=== PATIENT | male | born 1950 | race Caucasian/White ===

== ENCOUNTER 2016-10-23 11:26 | Emergency (ER) | payer SELFPAY ==
[~2016-10-23] VITALS: Ht 182.9 cm; Wt 75.0 kg
[~2016-10-23 11:26] MED LIST: ASPCH81 PO; CYAN10004 PO; LORA-741 PO; MAGN400T6 PO; METO25TA3 PO; MULT-506 PO; PRAV20TA PO
[2016-10-23 11:30] VITALS: TEMP 36.7; O2SAT 96; Ht 182.9 cm; Wt 75.0 kg
[2016-10-23 12:11] LABS: HEMATOCRIT 38.9 % (42-52); MEAN CELL VOLUME 93.5 fL (80-100); MEAN CORPUSCULAR HEMOGLOBIN 33.2 pg (25-34); MEAN CORPUSCULAR HGB CONC 35.5 g/dl (32-36); MEAN PLATELET VOLUME 10.8 fL (7.4-10.4); PLATELET COUNT 193 K/uL (130-400); RED BLOOD COUNT 4.16 M/uL (4.7-6.1); WHITE BLOOD COUNT 5.18 K/uL (4.8-10.8)
--- NOTE | 2016-10-23 12:11 | DIAGNOSTIC IMAGING REPORT ---
CHEST ONE VIEW PORTABLE CLINICAL HISTORY: 65 years-old Male presenting with anxiety. TECHNIQUE: Portable upright AP view of the chest was obtained. COMPARISON: 11/28/2009. FINDINGS: Left-sided pacer with leads to the right atrium and right ventricular apex. Cardiomediastinal silhouette normal. Possible hyperinflation. Lungs and pleural spaces clear. Degenerative changes of the lumbar spine noted. Upper abdomen normal. IMPRESSION: 1. No acute cardiopulmonary disease. Electronically signed by: Rashard Lynn M.D. 10/23/2016 12:10 PM Dictated Date/Time: 10/23/2016 12:08 PM
[2016-10-23 12:31] LABS: BUN/CREATININE RATIO 15.1 (10-20); CALCIUM 8.8 mg/dl (8.5-10.1); CREATININE 0.97 mg/dl (0.60-1.40); POTASSIUM 3.8 mmol/L (3.5-5.1)
[2016-10-23 12:36] LABS: ALB/GLOB RATIO 1.2 (0.9-2); CKMB/CK RATIO 1.4 (0-3.0)
[2016-10-23] MEDS ORDERED: LPT/40 PO (12:37)
[2016-10-23] MEDS ORDERED: ASPI-461 PO (12:37)
[2016-10-23] MEDS ORDERED: TPRSR25 PO (12:37)
[2016-10-23] MEDS ORDERED: ATEN-173 PO ×2 (12:37)
[2016-10-23 13:10] LABS: PARTIAL THROMBOPLASTIN RATIO 1.1; PROTHROMBIN TIME (PATIENT) 10.7 SECONDS (9.0-12.0)
--- NOTE | 2016-10-23 13:53 | DIAGNOSTIC IMAGING REPORT ---
HEAD WITHOUT CONTRAST (CT) CLINICAL HISTORY: 65 years-old Male with acute stroke like symptoms TECHNIQUE: Multiple axial CT images of the head were obtained without contrast. A dose lowering technique was utilized adhering to the principles of ALARA. CT DOSE: 638.56 mGycm COMPARISON: CT head 11/28/2009. FINDINGS: No acute intracranial hemorrhage, midline shift, mass, large territorial ischemia or abnormal extra-axial collection. There is unchanged focal area of low-attenuation involving the left caudate nucleus and frye radiata compatible with remote infarction. The calvarium is intact. The paranasal sinuses, mastoid air cells, and middle ear cavities are clear. IMPRESSION: 1. No acute intracranial abnormality. 2. 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 The above report was generated using voice recognition software. It may contain grammatical, syntax or spelling errors. Electronically signed by: Raman Mosley M.D. 10/23/2016 1:51 PM Dictated Date/Time: 10/23/2016 1:49 PM
--- NOTE | 2016-10-23 13:57 | EMERGENCY ROOM VISIT NOTE ---
History Report prepared by Alireza: Pati Schaffer Under the Supervision of: Dr. Willie Cedeño M.D. First contact with patient: 13:25 Chief Complaint: CARDIAC ASSESSMENT Stated Complaint: ANXIETY Nursing Triage Summary: pt presents to room a09 via als. pt reports "while i was driving coming home from work i started to have numbness in my hands and i was short of breath, i thought i was having a heart attack." pt has pacemaker. pt repors "i feel light headed." pt reports "i am going to diagnose myself i think i had a mini stroke, i think i have had them before but was never diagnosed, i can't think of how long i have had my pacemaker or who my family dr is." History of Present Illness The patient is a 65 year old male who presents to the Emergency Room with complaints of an episode of tingling in his hands and feet earlier today. The patient presents to the ED by EMS. He had just arrived home when he started feeling tingling in his hands and feet. He did not have any tingling around his mouth. He was SOB and breathing very quickly. He thought that he might be having a heart attack and called EMS. He currently feels well and no longer has any numbness or SOB. He reports that at the time he seemed to have some memory problems and had difficulty answering questions. He does not identify anything that upset him today. He denies any abdominal pain, leg pain, weakness, vision changes, or hearing changes. The patient has a pacemaker in place. He denies any history of anxiety, LA, CVA, or TIA. Source of History: patient Onset: earlier today Position: hand (bilateral), foot (bilateral) Quality: other (tingling) Timing: other (episodic) Associated Symptoms: + SOB, No abdominal pain, No weakness Note: Pt reports confusion. Pt denies leg pain, vision changes, hearing changes. Review of Systems All systems have been listed, reviewed, and are negative other than those previously mentioned. Please see Additional Medical History Sheet. Past Medical & Surgical Surgical Problems: (1) S/P placement of cardiac pacemaker Family History Cancer Lung disease Social History Smoking Status: Current Every Day Smoker Alcohol Use: occasionally Marital Status: Housing Status: lives with family Occupation Status: employed Current/Historical Medications Scheduled Aspirin (Aspirin), 81 MG PO DAILY Atenolol (Tenormin), 25 MG PO QAM Atenolol (Tenormin), 12.5 MG PO QPM Atorvastatin (Lipitor), 40 MG PO DAILY Cyanocobalamin (Vitamin B-12 1000 Mcg), 1,000 MCG PO DAILY Lorazepam (Ativan), 0.5 MG PO 1-3X PER WEEK PRN Magnesium Oxide (Mag-Ox), 400 MG PO DAILY Metoprolol Succinate (Metoprolol Succinate ER), 37.5 MG PO DAILY Multivitamin (Multivitamin), 1 TAB PO DAILY Allergies Coded Allergies: Sulfa Drugs (Verified Allergy, Intermediate, HIVES, 10/23/16) Physical Exam Vital Signs Date Time Temp Pulse Resp B/P (MAP) Pulse Ox O2 Delivery O2 Flow Rate FiO2 10/23/16 15:14 71 20 134/81 98 Room Air 71 131/78 89 114/78 10/23/16 15:13 78 98 Room Air 10/23/16 14:34 67 18 121/80 96 Room Air 10/23/16 13:53 66 18 142/74 99 Room Air 10/23/16 12:53 76 20 116/77 97 Room Air 10/23/16 12:16 74 18 128/82 95 Room Air 10/23/16 12:01 72 20 119/81 95 Room Air 10/23/16 11:30 36.7 91 18 148/87 99 Room Air 10/23/16 11:30 96 Room Air 10/23/16 11:30 98 Room Air 10/23/16 11:30 90 Physical Exam GENERAL: Patient awake, alert, oriented x 3. Patient follows commands. Patient does not appear toxic. Patient is adequately hydrated and well- nourished. SKIN: No erythema, pallor, cyanosis or rash HEENT: Normal head, pupils equal, reactive to light and accommodation. Ears normal. Oral cavity and posterior pharynx appear normal. Neck: Without adenopathy, no neck vein distention. CHEST: Pacemaker in the left upper chest. LUNGS: Clear to auscultation. No wheezes, no rales, no rhonchi. HEART: No murmurs. No gallops. No rubs ABDOMEN: Soft, nontender. EXTREMITIES: No signs of trauma. No pedal or pretibial edema. No calf or thigh tenderness. NEUROLOGIC: Cranial nerves II-XII within normal limits. No gross motor sensory function deficits. Medical Decision & Procedures ER Provider Diagnostic Interpretation: X ray results are stated below per my interpretation and the radiologist's interpretation. Radiology results as stated below per my review and radiologist interpretation: CHEST ONE VIEW PORTABLE CLINICAL HISTORY: 65 years-old Male presenting with anxiety. TECHNIQUE: Portable upright AP view of the chest was obtained. COMPARISON: 11/28/2009. FINDINGS: Left-sided pacer with leads to the right atrium and right ventricular apex. Cardiomediastinal silhouette normal. Possible hyperinflation. Lungs and pleural spaces clear. Degenerative changes of the lumbar spine noted. Upper abdomen normal. IMPRESSION: 1. No acute cardiopulmonary disease. Electronically signed by: Rashard Lynn M.D. 10/23/2016 12:10 PM Dictated Date/Time: 10/23/2016 12:08 PM HEAD WITHOUT CONTRAST (CT) CLINICAL HISTORY: 65 years-old Male with acute stroke like symptoms TECHNIQUE: Multiple axial CT images of the head were obtained without contrast. A dose lowering technique was utilized adhering to the principles of ALARA. CT DOSE: 638.56 mGycm COMPARISON: CT head 11/28/2009. FINDINGS: No acute intracranial hemorrhage, midline shift, mass, large territorial ischemia or abnormal extra-axial collection. There is unchanged focal area of low-attenuation involving the left caudate nucleus and frye radiata compatible with remote infarction. The calvarium is intact. The paranasal sinuses, mastoid air cells, and middle ear cavities are clear. IMPRESSION: 1. No acute intracranial abnormality. 2. 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 The above report was generated using voice recognition software. It may contain grammatical, syntax or spelling errors. Electronically signed by: Raman Mosley M.D. 10/23/2016 1:51 PM Dictated Date/Time: 10/23/2016 1:49 PM Laboratory Results 10/23/16 11:53 10/23/16 11:53 Test 10/23/16 11:53 10/23/16 12:00 10/23/16 12:30 Red Blood Count 4.16 M/uL (4.7-6.1) Mean Corpuscular Volume 93.5 fL (80-100) Mean Corpuscular Hemoglobin 33.2 pg (25-34) Mean Corpuscular Hemoglobin Concent 35.5 g/dl (32-36) RDW Standard Deviation 45.1 fL (36.4-46.3) RDW Coefficient of Variation 13.1 % (11.5-14.5) Mean Platelet Volume 10.8 fL (7.4-10.4) Anion Gap 8.0 mmol/L (3-11) Est Creatinine Clear Calc Drug Dose 81.6 ml/min Estimated GFR () 95.2 Estimated GFR (Non- 82.2 BUN/Creatinine Ratio 15.1 (10-20) Calcium Level 8.8 mg/dl (8.5-10.1) Total Bilirubin 0.5 mg/dl (0.2-1) Aspartate Amino Transf (AST/SGOT) 28 U/L (15-37) Alanine Aminotransferase (ALT/SGPT) 26 U/L (12-78) Alkaline Phosphatase 62 U/L (45-117) Total Creatine Kinase 177 U/L (39-308) Creatine Kinase MB 2.5 ng/ml (0.5-3.6) Creatine Kinase MB Ratio 1.4 (0-3.0) Total Protein 6.7 gm/dl (6.4-8.2) Albumin 3.7 gm/dl (3.4-5.0) Globulin 3.0 gm/dl (2.5-4.0) Albumin/Globulin Ratio 1.2 (0.9-2) Thyroid Stimulating Hormone (TSH) 1.950 uIu/ml (0.300-4.500) Bedside Troponin I < 0.030 ng/ml (0-0.045) Prothrombin Time 10.7 SECONDS (9.0-12.0) Prothromb Time International Ratio 1.0 (0.9-1.1) Activated Partial Thromboplast Time 28.5 SECONDS (21.0-31.0) Partial Thromboplastin Ratio 1.1 Laboratory results as stated above per my review. ECG Indication: SOB/dyspnea Rate (beats per minute): 79 Rhythm: normal sinus Findings: no acute ischemic change, no ectopy ED Course 1325: Past medical records reviewed. The patient was evaluated in room A8. A complete history and physical examination was performed. 1501: Upon reevaluation, the patient appeared to have improvement of his symptoms. I discussed today's findings with him. He verbalized agreement of the treatment plan. He was discharged home. Orthostatic vital signs and ambulatory trial were completed prior to discharge. Medical Decision Nurses notes reviewed. Medical history sheet reviewed. Differential diagnosis includes but is not limited to: hyperventilation, anxiety, panic, TIA, CVA. The patient's description of the event earlier today is most consistent with panic attack. Multiple labs, EKG and imaging were obtained. The patient has no evidence of an acute TIA or CVA. Troponin is not elevated. Chest x-ray does not reveal any acute cardiopulmonary pathology. The patient's symptoms resolved without medication while here in the ED. I believe the patient is safe to return home. Medication Reconcilliation Current Medication List: was personally reviewed by me Blood Pressure Screening Patient's blood pressure: Normal blood pressure Blood pressure disposition: Did not require urgent referral Impression Primary Impression: Acute hyperventilation syndrome Scribe Attestation The scribe's documentation has been prepared under my direction and personally reviewed by me in its entirety. I confirm that the note above accurately reflects all work, treatment, procedures, and medical decision making performed by me. Departure Information Dispostion Home / Self-Care Referrals Katia Spears M.D. (PCP) Patient Instructions My [facility] Additional Instructions Follow-up with your family physician within the next 2 weeks. Return here sooner if you develop more chest pain or numbness. Continue all of your current medications as prescribed.
[2016-10-23 15:14] VITALS: BP 114/78; PULSE 89; O2SAT 98
[2016-10-26] MEDS ORDERED: TPRSR25 PO (12:17)
[2016-10-26] MEDS ORDERED: TPRSR50 PO (12:17)
== END 2016-10-23 15:31 | disposition home or self-care (01) ==
LOC: EDBD 11:26 → C.EDA 11:27
DX: F45.8 Other somatoform disorders (principal); Z95.0 Presence of cardiac pacemaker; Z80.9 Family history of malignant neoplasm, unspecified; F17.210 Nicotine dependence, cigarettes, uncomplicated; Z79.82 Long term (current) use of aspirin; Z79.899 Other long term (current) drug therapy

== ENCOUNTER 2016-10-25 11:33 | Observation (INO) | payer SELFPAY ==
[~2016-10-25] VITALS: Ht 180.3 cm; Wt 71.0 kg
[~2016-10-25 11:33] MED LIST changes: -ASPCH81 PO; +ASPI-461 PO; +ATEN-173 PO; +LPT/40 PO; -METO25TA3 PO; -PRAV20TA PO; +TPRSR25 PO
[2016-10-25] MEDS ORDERED: SODIUM CHLORIDE 0.9% 500ML 500 ML IV STA (12:25)
--- NOTE | 2016-10-25 12:33 | EMERGENCY ROOM VISIT NOTE ---
History Report prepared by Alireza: Lorena Mcqueen Under the Supervision of: Dr. Tray Damico M.D. First contact with patient: 12:22 Chief Complaint: DIZZY Stated Complaint: CARDIAC/PALPITATION Nursing Triage Summary: pt states dizziness intermittent, states "stood up and felt dizzy" denies SHOB, states cardiac hx, pacemaker placement post AL in 2008, states current smoker, denies chest pain at this time, states "congestion feeling in chest," History of Present Illness The patient is a 65 year old male who presents to the Emergency Room with complaints of intermittent dizziness that began two days ago. The patient states that on Saturday he was evaluated in the emergency department for similar symptoms. He states that he has a history of cardiac arrest, stating that he follows with cardiology and has a pacemaker. The patient states that he was instructed to come to the emergency department by his cube machine tender. He states that each episode lasts a couple minutes. The patient states that he becomes nauseous, develops a pain in his abdomen and becomes lightheaded. He additionally notes a headache, palpitations, and chest discomfort, noting a congestion feeling. The patient denies the symptoms occurring with exertion. He denies any vomiting. The patient denies any history of a previous AL. Source of History: patient Onset: two days ago Position: other (global) Quality: other (dizziness) Timing: intermittent Associated Symptoms: + headache, + chest pain, + nausea, + abdominal pain, No vomiting Note: Associated symptoms: lighteaded, palpitations Review of Systems See HPI for pertinent positives & negatives. A total of 10 systems reviewed and were otherwise negative. Past Medical & Surgical Surgical Problems: (1) S/P placement of cardiac pacemaker Family History Cancer Lung disease Social History Smoking Status: Current Every Day Smoker Alcohol Use: occasionally Marital Status: Housing Status: lives with family Occupation Status: employed Current/Historical Medications Scheduled Aspirin (Aspirin), 81 MG PO DAILY Atorvastatin (Lipitor), 40 MG PO DAILY Cyanocobalamin (Vitamin B-12 1000 Mcg), 1,000 MCG PO DAILY Lorazepam (Ativan), 0.5 MG PO 1-3X PER WEEK PRN Magnesium Oxide (Mag-Ox), 400 MG PO DAILY Metoprolol Succinate (Metoprolol Succinate ER), 37.5 MG PO DAILY Multivitamin (Multivitamin), 1 TAB PO DAILY Allergies Coded Allergies: Sulfa Drugs (Verified Allergy, Intermediate, HIVES, 10/23/16) Physical Exam Vital Signs Date Time Temp Pulse Resp B/P (MAP) Pulse Ox O2 Delivery O2 Flow Rate FiO2 10/25/16 14:03 64 20 140/75 100 Room Air 10/25/16 12:55 60 112/70 66 128/80 70 109/71 10/25/16 11:46 60 10/25/16 11:43 97 Room Air 10/25/16 11:43 36.7 67 20 141/88 97 Room Air Physical Exam GENERAL: Patient is in no acute distress. HEENT: No acute trauma, normocephalic atraumatic, mucous membranes moist, no nasal congestion, no scleral icterus. NECK: No stridor, no adenopathy, no meningismus, trachea is midline. LUNGS: Clear to auscultation bilaterally, no wheeze, no rhonchi, breath sounds equal. HEART: Without murmurs gallops or rubs, regular rate and rhythm. ABDOMEN: Soft, nontender, bowel sounds positive, no hernias, no peritonitis. EXTREMITIES: No cyanosis or edema, full range of motion of all the joints without pain or difficulty, no signs for acute trauma. NEUROLOGIC: Oriented x 3, no acute motor or sensory deficits, no focal weakness. SKIN: No rash, no jaundice, no diaphoresis. Medical Decision & Procedures ER Provider Diagnostic Interpretation: Orthostatic vital signs are negative. X-ray results as stated below per interpretation by me and the radiologist: CHEST ONE VIEW PORTABLE HISTORY: 65 years-old Male chest pain COMPARISON: Portable chest radiograph 10/23/2016 TECHNIQUE: Portable upright AP view of the chest FINDINGS: Cardiac silhouette is within normal limits. Dual-lead left pectoral pacer is noted with leads intact. No pneumothorax, pleural effusion or focal airspace consolidation. No overt pulmonary edema. Bones are grossly intact. IMPRESSION: No acute cardiopulmonary process. The above report was generated using voice recognition software. It may contain grammatical, syntax or spelling errors. Electronically signed by: Raman Mosley M.D. 10/25/2016 12:56 PM Dictated Date/Time: 10/25/2016 12:55 PM Laboratory Results 10/25/16 12:35 Red Blood Count 4.54, Mean Corpuscular Volume 96.0, Mean Corpuscular Hemoglobin 32.6, Mean Corpuscular Hemoglobin Concent 33.9, Mean Platelet Volume 11.1, Neutrophils (%) (Auto) 60.5, Lymphocytes (%) (Auto) 28.5, Monocytes (%) (Auto) 9.2, Eosinophils (%) (Auto) 1.4, Basophils (%) (Auto) 0.4, Neutrophils # (Auto) 3.35, Lymphocytes # (Auto) 1.58, Monocytes # (Auto) 0.51, Eosinophils # (Auto) 0.08, Basophils # (Auto) 0.02 10/25/16 12:35 Test 10/25/16 12:35 White Blood Count 5.54 K/uL (4.8-10.8) Red Blood Count 4.54 M/uL (4.7-6.1) Hemoglobin 14.8 g/dL (14.0-18.0) Hematocrit 43.6 % (42-52) Mean Corpuscular Volume 96.0 fL (80-100) Mean Corpuscular Hemoglobin 32.6 pg (25-34) Mean Corpuscular Hemoglobin Concent 33.9 g/dl (32-36) Platelet Count 215 K/uL (130-400) Mean Platelet Volume 11.1 fL (7.4-10.4) Neutrophils (%) (Auto) 60.5 % Lymphocytes (%) (Auto) 28.5 % Monocytes (%) (Auto) 9.2 % Eosinophils (%) (Auto) 1.4 % Basophils (%) (Auto) 0.4 % Neutrophils # (Auto) 3.35 K/uL (1.4-6.5) Lymphocytes # (Auto) 1.58 K/uL (1.2-3.4) Monocytes # (Auto) 0.51 K/uL (0.11-0.59) Eosinophils # (Auto) 0.08 K/uL (0-0.5) Basophils # (Auto) 0.02 K/uL (0-0.2) RDW Standard Deviation 46.4 fL (36.4-46.3) RDW Coefficient of Variation 13.2 % (11.5-14.5) Immature Granulocyte % (Auto) 0.0 % Immature Granulocyte # (Auto) 0.00 K/uL (0.00-0.02) Anion Gap 1.0 mmol/L (3-11) Estimated GFR () 109.4 Estimated GFR (Non- 94.4 BUN/Creatinine Ratio 15.7 (10-20) Calcium Level 9.2 mg/dl (8.5-10.1) Magnesium Level 2.1 mg/dl (1.8-2.4) Total Bilirubin 0.4 mg/dl (0.2-1) Aspartate Amino Transf (AST/SGOT) 22 U/L (15-37) Alanine Aminotransferase (ALT/SGPT) 24 U/L (12-78) Alkaline Phosphatase 66 U/L (45-117) Total Protein 7.0 gm/dl (6.4-8.2) Albumin 3.8 gm/dl (3.4-5.0) Globulin 3.2 gm/dl (2.5-4.0) Albumin/Globulin Ratio 1.2 (0.9-2) Thyroid Stimulating Hormone (TSH) 1.120 uIu/ml (0.300-4.500) Troponin 0.00 Laboratory results reviewed by me. Medications Administered Medications (Trade) Dose Ordered Sig/Kita Route Start Time Stop Time Status Last Admin Dose Admin Sodium Chloride 500 ml @ 999 mls/hr Q31M STAT IV 10/25/16 12:25 10/25/16 12:55 DC 10/25/16 12:25 999 MLS/HR ECG Indication: palpitations Rate (beats per minute): 64 Rhythm: other (atrial pacemaker) Findings: no acute ischemic change, no ectopy ED Course 1224: The patient was evaluated in room B9. A complete history and physical exam was performed. 1225: Ordered Sodium Chloride 500 ml @ 999 mls/hr IV. 1353: I discussed the patients case with Dr. Walter, Cardiology. He states that the patient should be evaluated for further treatment in the hospital. 1358: I reevaluated the patient and he is resting. I discussed the exam findings with him and I discussed the treatment plan. He verbalized complete understanding and agreement. He is going to be evaluated for further treatment. 1401: I discussed the patient's case with Aaliyah Hodges PA-C. She is going to evaluate the patient for further treatment. Medical Decision The patient is a 65 year old male who presents to the ED with complaints of intermittent dizziness. Differential diagnoses considered include dysrhythmia, AL, angina, electrolyte imbalance, anemia, pneumonia. There is no leukocytosis or concerning anemia. No significant electrolyte abnormality, kidney failure or hepatitis. The patient appears to be in a euthyroid state. EKG shows a functioning atrial pacemaker, no ischemia. Cardiac enzyme testing times one is not consistent with acute cardiac injury. Chest x-ray shows no mediastinal widening, pneumonia or pneumothorax. The patient received IV saline, he is resting comfortably. I discussed the case with the cube machine tender, admission/observation was advised. Dysrhythmia, cardiac ischemia were thought possibilities. Further time in the hospital was recommended. I spoke to the patient and case management. The on- call hospitalist was consulted. Consults Time Called: 1350 Consulting Physician: Dr. Walter, Cardiology Returned Call: [phone] I discussed the patients case with Dr. Walter, Cardiology. He states that the patient should be evaluated for further treatment in the hospital. Additional Consults: Time Called: 1357 Consulted Physician: Aaliyah Hodges PA-C Returned Call: [phone] Additional Comments: I discussed the patient's case with Aaliyah Hodges PA-C. She is going to evaluate the patient for further treatment. Impression Primary Impression: Precordial chest pain Additional Impression: Shortness of breath Scribe Attestation The scribe's documentation has been prepared under my direction and personally reviewed by me in its entirety. I confirm that the note above accurately reflects all work, treatment, procedures, and medical decision making performed by me. Departure Information Dispostion Being Evaluated By Hospitalist Referrals Kalani Elias D.O. (PCP) Problem Qualifiers
[2016-10-25 12:49] LABS: BASO % 0.4 %; BASO ABS # 0.02 K/uL (0-0.2); COMPLETE YES; EOS % 1.4 %; HEMATOCRIT 43.6 % (42-52); LYMPH % 28.5 %; LYMPH ABS # 1.58 K/uL (1.2-3.4); MEAN CORPUSCULAR HEMOGLOBIN 32.6 pg (25-34); MEAN CORPUSCULAR HGB CONC 33.9 g/dl (32-36); MEAN PLATELET VOLUME 11.1 fL (7.4-10.4); MONO % 9.2 %; NEUT % 60.5 %; PLATELET COUNT 215 K/uL (130-400); RED BLOOD COUNT 4.54 M/uL (4.7-6.1); WHITE BLOOD COUNT 5.54 K/uL (4.8-10.8)
--- NOTE | 2016-10-25 12:58 | DIAGNOSTIC IMAGING REPORT ---
CHEST ONE VIEW PORTABLE HISTORY: 65 years-old Male chest pain COMPARISON: Portable chest radiograph 10/23/2016 TECHNIQUE: Portable upright AP view of the chest FINDINGS: Cardiac silhouette is within normal limits. Dual-lead left pectoral pacer is noted with leads intact. No pneumothorax, pleural effusion or focal airspace consolidation. No overt pulmonary edema. Bones are grossly intact. IMPRESSION: No acute cardiopulmonary process. The above report was generated using voice recognition software. It may contain grammatical, syntax or spelling errors. Electronically signed by: Raman Mosley M.D. 10/25/2016 12:56 PM Dictated Date/Time: 10/25/2016 12:55 PM
[2016-10-25 13:14] LABS: ALB/GLOB RATIO 1.2 (0.9-2); ALKALINE PHOSPHATASE 66 U/L (45-117); ALT/SGPT 24 U/L (12-78); AST/SGOT 22 U/L (15-37); BLOOD UREA NITROGEN 13 mg/dl (7-18); BUN/CREATININE RATIO 15.7 (10-20); CALCIUM 9.2 mg/dl (8.5-10.1); CARBON DIOXIDE 30 mmol/L (21-32); CHLORIDE 107 mmol/L (98-107); GLUCOSE 76 mg/dl (70-99); POTASSIUM 4.5 mmol/L (3.5-5.1); SODIUM 138 mmol/L (136-145)
[2016-10-25 13:29] LABS: MAGNESIUM 2.1 mg/dl (1.8-2.4); THYROID STIMULATING HORMONE 1.12 uIu/ml (0.300-4.500)
[2016-10-25] MEDS ORDERED: ONDANSETRON INJ 2 MG/ML 2 ML VIAL IV PRN (15:00)
[2016-10-25] MEDS ORDERED: NITROGLYCERIN 0.4 MG SL PER TAB CHARGE SL PRN (15:00)
[2016-10-25] MEDS ORDERED: ACETAMINOPHEN 325 MG TAB PO PRN (15:00)
--- NOTE | 2016-10-25 15:33 | History and Physical ---
History & Physical Date & Time of Service: Oct 25, 2016 at 15:09 Chief Complaint: Cardiac/Palpitation Primary Care Physician: Kalani Elias D.O. History of Present Illness Source: patient This is a 65yo male with a PMH of 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 Patient states that each episode has a sudden onset of lightheadedness, headache, chest tightness and nausea and lasts for a few minutes. During the episode, patient starts to feel short of breath and notices his heart beat increasing. Endorses some transient confusion afterwards. Seems to be brought on during exertion and at rest. Denies visual changes, LOC, seizure, vomiting, or weakness in extremities. Came into the ED for these symptoms on 10/23, when they initially started, and work up was negative. CXR, head CT, labwork, EKG and cardiac enzymes were all within normal limits. Over the past two days, episodes have increased in frequency. Patient follows with Saba in clinic and was told to come to the ED by his office. Had pacemaker placed in 2008 and it was most recently interrogated in July 2016. Denies any history of CAD,CVA, seizures. Past Medical/Surgical History Medical Problems: (1) HLD (hyperlipidemia) Status: Chronic (2) HTN (hypertension) Status: Chronic (3) Paroxysmal atrial fibrillation Status: Chronic (4) Tachy-tien syndrome Permanent Comment: S/p pacemaker in 2008 Status: Chronic Family History Cancer Lung disease Social History Smoking Status: Current Every Day Smoker (1/2 PPD for >30 years ) Marital Status: Occupational Status: employed Immunizations History of Influenza Vaccine: No History of Tetanus Vaccine?: YES 08/11 History of Pneumococcal: No History of Hepatitis B Vaccine: No Multi-Drug Resistant Organisms History of MDRO: No Allergies Coded Allergies: Sulfa Drugs (Verified Allergy, Intermediate, HIVES, 10/23/16) Home Medications Scheduled Aspirin (Aspirin), 81 MG PO DAILY Atorvastatin (Lipitor), 40 MG PO DAILY Cyanocobalamin (Vitamin B-12 1000 Mcg), 1,000 MCG PO DAILY Lorazepam (Ativan), 0.5 MG PO 1-3X PER WEEK PRN Magnesium Oxide (Mag-Ox), 400 MG PO DAILY Metoprolol Succinate (Metoprolol Succinate ER), 37.5 MG PO DAILY Multivitamin (Multivitamin), 1 TAB PO DAILY Review of Systems Ten systems reviewed and negative except as noted in the HPI. Physical Exam Vital Signs Date Time Temp Pulse Resp B/P (MAP) Pulse Ox O2 Delivery O2 Flow Rate FiO2 10/25/16 14:03 64 20 140/75 100 Room Air 10/25/16 12:55 60 112/70 66 128/80 70 109/71 10/25/16 11:46 60 10/25/16 11:43 97 Room Air 10/25/16 11:43 36.7 67 20 141/88 97 Room Air General Appearance: WD/WN, no apparent distress Head: normocephalic, atraumatic Eyes: normal inspection, sclerae normal ENT: hearing grossly normal Neck: supple, no adenopathy, no carotid bruits, trachea midline Respiratory/Chest: chest non-tender, lungs clear, normal breath sounds, no respiratory distress, no accessory muscle use Cardiovascular: regular rate, rhythm, no murmur Abdomen/GI: normal bowel sounds, non tender, soft, no organomegaly Back: normal inspection Extremities/Musculoskelatal: normal inspection, no calf tenderness, normal capillary refill, no pedal edema Neurologic/Psych: no motor/sensory deficits, alert, normal mood/affect, oriented x 3 Skin: normal color, warm/dry, no rash Diagnostics Laboratory Results Results Past 24 Hours Test 10/25/16 12:35 Range/Units White Blood Count 5.54 4.8-10.8 K/uL Red Blood Count 4.54 4.7-6.1 M/uL Hemoglobin 14.8 14.0-18.0 g/dL Hematocrit 43.6 42-52 % Mean Corpuscular Volume 96.0 80-100 fL Mean Corpuscular Hemoglobin 32.6 25-34 pg Mean Corpuscular Hemoglobin Concent 33.9 32-36 g/dl Platelet Count 215 130-400 K/uL Mean Platelet Volume 11.1 7.4-10.4 fL Neutrophils (%) (Auto) 60.5 % Lymphocytes (%) (Auto) 28.5 % Monocytes (%) (Auto) 9.2 % Eosinophils (%) (Auto) 1.4 % Basophils (%) (Auto) 0.4 % Neutrophils # (Auto) 3.35 1.4-6.5 K/uL Lymphocytes # (Auto) 1.58 1.2-3.4 K/uL Monocytes # (Auto) 0.51 0.11-0.59 K/uL Eosinophils # (Auto) 0.08 0-0.5 K/uL Basophils # (Auto) 0.02 0-0.2 K/uL RDW Standard Deviation 46.4 36.4-46.3 fL RDW Coefficient of Variation 13.2 11.5-14.5 % Immature Granulocyte % (Auto) 0.0 % Immature Granulocyte # (Auto) 0.00 0.00-0.02 K/uL Sodium Level 138 136-145 mmol/L Potassium Level 4.5 3.5-5.1 mmol/L Chloride Level 107 98-107 mmol/L Carbon Dioxide Level 30 21-32 mmol/L Anion Gap 1.0 3-11 mmol/L Blood Urea Nitrogen 13 7-18 mg/dl Creatinine 0.80 0.60-1.40 mg/dl Estimated GFR () 109.4 Estimated GFR (Non- 94.4 BUN/Creatinine Ratio 15.7 10-20 Random Glucose 76 70-99 mg/dl Calcium Level 9.2 8.5-10.1 mg/dl Magnesium Level 2.1 1.8-2.4 mg/dl Total Bilirubin 0.4 0.2-1 mg/dl Aspartate Amino Transf (AST/SGOT) 22 15-37 U/L Alanine Aminotransferase (ALT/SGPT) 24 12-78 U/L Alkaline Phosphatase 66 45-117 U/L Total Protein 7.0 6.4-8.2 gm/dl Albumin 3.8 3.4-5.0 gm/dl Globulin 3.2 2.5-4.0 gm/dl Albumin/Globulin Ratio 1.2 0.9-2 Thyroid Stimulating Hormone (TSH) 1.120 0.300-4.500 uIu/ml Diagnostic Radiology CXR: IMPRESSION: No acute cardiopulmonary process. EKG Atrial-paced rhythm of 64 bpm (EKG yet to be uploaded) Impression Assessment and Plan This is a 65yo male with a PMH of paroxysmal A Fib with tachy-tien syndrome (s/ p PM placement in 2008), HTN, HLD and tobacco abuse who presents with intermittent pre-syncopal episodes over the past 3 days. Pre-syncopal episodes: -Patient with paroxysmal A Fib with tachy-tien syndrome (s/p PM placement in 2008) -Likely a cardiogenic cause vs. orthostatic hypotension -Pacemaker interrogated in 07/18 and was functioning normally -EKG normal, troponin neg x 1 -CXR wnl -Patient sent in by Dr. Walter -Ordered Echo -Ordered PM interrogation -Appreciate further recs -On tele for observation -Trend troponin -Repeat EKG in AM -Orthostatic vitals -Carotid dopplers HTN: -Normotensive -Continue home dose of metoprolol HLD: -Controlled, fasting lipid panel wnl on 2016 labwork -Continue statin Tobacco Abuse: -H/o 1/2 PPD for >30 years -Smoking cessation consult placed DVT Ppx: Lovenox Code status: FULL Dispo: Plan to return home once medically stable Attending Physician Addendum Dr. Cain I have performed the physical exam with PIERRE Young and I agree with PIERRE Young's assessment and plan and would like to add the following comments: This is a 65 year old M with multiple episodes of chest pain and associated with nausea and lightheadedness. On exam patient is awake and alert and in no acute distress in the ED. His heart sounds are in normal rhythm and lungs are clear on auscultation and no swelling of lower extremities. He has a pacemaker with EKG showing atrial paced rhythm around 65 beats per minute. Initial troponin is negative. Will trend troponins and monitor on telemetry and obtain cardiology service consultation and assistance for pacemaker interrogation. Level of Care Telemetry Resuscitation Status FULL RESUSCITATION VTE Prophylaxis VTE Risk Assessment Done? Y/N: Yes Risk Level: Moderate Given or contraindicated: Enoxaparin (Lovenox)SQ
[2016-10-25] MEDS ORDERED: IV FLUIDS COMPLETED PRN (16:00)
--- NOTE | 2016-10-25 16:46 | ECHOCARDIOGRAM REPORT ---
*NOTICE TO RECEIVING DEMOCRAT AGENCY This information is strictly Confidential and protected under [place] law. [place] law prohibits you from making any further disclosure of this information unless further disclosure is expressly permitted by the written consent of the person to whom it pertains or is authorized by law. A general authorization for the release of medical or other information is not sufficient for this purpose. Hospital accepts no responsibility if the information is made available to any other person, INCLUDING THE PATIENT. Interpretation Summary * Name: ERICKA MARTINEZ Study Date: 10/25/2016 02:56 PM BP: 140/75 mmHg * Patient Location: C.EDB HR: 64 * : 1950 (M/d/yyyy) Gender: Male * Age: 65 yrs Ethnicity: CA Weight: 155 lb * Ordering Physician: Ramon Walter DO * Performed By: Cintia Rocha * * Reason For Study: A-FIB * The study was technically adequate. * Compared to prior study, there is no significant change. * -- Conclusions -- * Ejection Fraction = 60-65%. * No regional wall motion abnormalities noted. * There is mild tricuspid regurgitation. * Doppler findings do not suggest pulmonary hypertension. * Grade I diastolic dysfunction, (abnormal relaxation pattern). Procedure Details * A complete two-dimensional transthoracic echocardiogram was performed (2D, M-mode, Doppler and color flow Doppler). Left Ventricle * The left ventricle is normal in size. * There is no thrombus. * There is normal left ventricular wall thickness. * Ejection Fraction = 60-65%. * Left ventricular systolic function is normal. * No regional wall motion abnormalities noted. Right Ventricle * The right ventricular cavity size is normal (basal dimension <4.2 cm in right ventricular apical 4-chamber view). * The right ventricular systolic function is normal as assessed by tricuspid annular plane systolic excursion (TAPSE) (normal >1.5 cm). Atria * The left atrial size is normal. * Right atrial size is normal. * There is a catheter/pacemaker lead seen in the right atrium. * There is no evidence of atrial septal defect, but resolution does not allow assessment for a patent foramen ovale. Mitral Valve * The mitral valve is normal. * There is no mitral valve stenosis. * Significant mitral regurgitation is absent. Tricuspid Valve * The tricuspid valve is normal. * There is no tricuspid stenosis. * There is mild tricuspid regurgitation. * Doppler findings do not suggest pulmonary hypertension. Aortic Valve * The aortic valve is trileaflet. * Aortic stenosis is absent. * There is no significant aortic regurgitation. Pulmonic Valve * The pulmonary valve is not well seen, but the Doppler examination is normal without significant regurgitation or stenosis. Great Vessels * The aortic root is normal size. Pericardium/Pleural * There is no pericardial effusion. Great Vessels * Normal inferior vena cava diameter and respiratory variation suggests normal central venous pressure. Left Ventricular Diastolic Function * Grade I diastolic dysfunction, (abnormal relaxation pattern). MMode 2D Measurements and Calculations IVSd 1.2 cm IVSs 1.7 cm LVIDd 4.7 cm LVIDs 2.8 cm LVPWd 0.99 cm LVPWs 1.7 cm IVS/LVPW 1.2 FS 39.6 % EDV(Teich) 102.4 ml ESV(Teich) 30.6 ml EF(Teich) 70.1 % EDV(cubed) 103.8 ml ESV(cubed) 22.9 ml EF(cubed) 78.0 % % IVS thick 44.1 % % LVPW thick 76.6 % LV mass(C)d 187.7 grams LV mass(C)s 192.9 grams SV(Teich) 71.8 ml SV(cubed) 80.9 ml ACS 1.7 cm LA dimension 3.5 cm LVOT diam 2.1 cm LVOT area 3.4 cm\S\2 LVAd ap4 37.0 cm\S\2 LVLd ap4 8.7 cm EDV(MOD-sp4) 132.5 ml EDV(sp4-el) 133.9 ml LVAs ap4 19.8 cm\S\2 LVLs ap4 6.5 cm ESV(MOD-sp4) 52.2 ml ESV(sp4-el) 51.5 ml EF(MOD-sp4) 60.6 % EF(sp4-el) 61.5 % LVAd ap2 33.3 cm\S\2 LVLd ap2 7.6 cm EDV(MOD-sp2) 122.7 ml EDV(sp2-el) 123.8 ml LVAs ap2 17.9 cm\S\2 LVLs ap2 6.2 cm ESV(MOD-sp2) 42.9 ml ESV(sp2-el) 43.7 ml EF(MOD-sp2) 65.0 % EF(sp2-el) 64.7 % LVLd %diff -14.17 % EDV(MOD-bp) 131.6 ml LVLs %diff -4.27 % ESV(MOD-bp) 46.3 ml EF(MOD-bp) 64.9 % SV(MOD-sp4) 80.3 ml SV(MOD-sp2) 79.8 ml SV(MOD-bp) 85.4 ml SV(sp4-el) 82.4 ml SV(sp2-el) 80.1 ml Doppler Measurements and Calculations MV E max dixie 58.9 cm/sec MV A max dixie 58.1 cm/sec MV E/A 1.0 MV dec time 0.30 sec Ao V2 max 120.6 cm/sec Ao max PG 5.8 mmHg Ao max PG (full) 2.7 mmHg HELEN(V,A) 2.5 cm\S\2 HELEN(V,D) 2.5 cm\S\2 LV V1 max PG 3.1 mmHg LV V1 max 88.7 cm/sec MR max dixie 241.6 cm/sec MR max PG 23.3 mmHg PA V2 max 45.3 cm/sec PA max PG 0.82 mmHg TR max dixie 249.8 cm/sec
--- NOTE | 2016-10-25 16:52 | DIAGNOSTIC IMAGING REPORT ---
CAROTID DOPPLER NECK ART CLINICAL HISTORY: 65 years-old Male presenting with Pre-syncope . TECHNIQUE: Real-time grayscale and color and spectral Doppler ultrasound imaging of the bilateral carotid arteries was performed. NASCET criteria was used in evaluating this study. COMPARISON: 11/28/2009. FINDINGS: Right: Common carotid: Atherosclerosis at the carotid bulb. Peak systolic velocity 99 cm/s. Internal carotid artery: Atherosclerosis of the origin. Peak systolic velocity 101 cm/s. External carotid artery: Patent. Peak systolic velocity 109 cm/s. Systolic ratio: 1.02. Left: Common carotid: Atherosclerosis at the carotid bulb. Peak systolic velocity 100 cm/s. Internal carotid artery: Atherosclerosis at the origin and along the course. Peak systolic velocity 106 cm/s. External carotid artery: Patent. Peak systolic velocity 98 cm/s. Systolic ratio: 1.06. Bilateral antegrade flow within the vertebral arteries. Reference ranges: Stenosis measurements are compared velocity parameters. Normal ICA peak systolic velocity less than 125 cm/s. Normal ICA peak systolic velocity to common carotid artery velocity ratio is less than 2: less than 2 equates to less than 50% stenosis, 2-4 equates to 50-69% stenosis, greater than 4 equates to greater than or equal to 70% stenosis. Normal ICA end-diastolic velocity less than 40. Blood pressure Brachial: Right: 132/71 mmHg, Left: 132/78 mmHg. IMPRESSION: Atherosclerosis without evidence of hemodynamically significant stenosis seen within the carotid arteries. Electronically signed by: Rashard Lynn M.D. 10/25/2016 4:50 PM Dictated Date/Time: 10/25/2016 4:48 PM
[2016-10-25 17:37] VITALS: BP 134/91; PULSE 77; TEMP 36.7; O2SAT 100; Ht 180.3 cm; Wt 71.0 kg
--- NOTE | 2016-10-25 17:39 | CARDIOLOGY CONSULTATION ---
DATE OF CONSULTATION: 10/25/2016 REFERRING PHYSICIAN: Dr. El Cain. REASON FOR CONSULTATION: Palpitations, chest discomfort, lightheadedness, and near syncope. HISTORY OF PRESENT ILLNESS: Mr. Diego is a 65-year-old gentleman who is well known to the undersigned. He presented to the Emergency Department on October 23 with lightheadedness and chest discomfort. Initial evaluation including cardiac enzymes, telemetry, ECG and CT of the head was unremarkable. He was discharged home. The patient returned today with recurrent symptoms. He had been visiting the [facility] and resting in a chair when he noted onset of tachypalpitations with associated lightheadedness. There was a tightness in the center of his chest. Symptoms lasted for approximately 5 minutes. There was associated nausea and near syncope. The discomfort and symptoms resolved and the patient returned to his baseline state of health. Symptoms again returned and lasted again for 5 minutes. He came to the Emergency Department for further evaluation. On initial assessment, he is atrial paced on his ECG. His cardiac enzymes are negative. Currently, back to baseline state of health. He is followed in the outpatient setting for a history of sinus node dysfunction and pacemaker implantation, paroxysmal atrial tachycardia as well as paroxysmal atrial fibrillation with a history of hypertension, dyslipidemia and tobacco abuse. No history of coronary artery disease, congestive heart failure, rheumatic fever as a child, or diabetes. REVIEW OF SYSTEMS: The pertinent positive noted above, a comprehensive 10-system review is otherwise negative. PAST MEDICAL HISTORY: 1. Paroxysmal atrial fibrillation. 2. Paroxysmal atrial tachycardia. 3. Sick sinus syndrome, status post pacemaker implantation. 4. Hypertension. 5. Dyslipidemia. SOCIAL HISTORY: Active tobacco use, smoking half a pack daily for more than 30 years. and lives with his . 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 FAMILY HISTORY: Negative for premature coronary artery disease or sudden cardiac . ALLERGIES: LISTED TO SULFA ANTIBIOTICS. OUTPATIENT MEDICATIONS: 1. Toprol-XL 75 mg daily (recently transitioned from atenolol 75 mg daily due to medication shortage). 2. Lipitor 40 mg daily. 3. Vitamin D daily. 4. Fish oil 500 daily. 5. Magnesium oxide 400 mg daily. 6. Aspirin 81 mg daily. 7. Vitamin B12 at 500 mcg daily. CHEST X-RAY ON ADMISSION: No acute cardiopulmonary process. LABORATORY DATA: Sodium 138, potassium 4.5, chloride 107, CO2 is 30, BUN is 13, and creatinine is 0.80. TSH 1.120. White blood cell count 5.54, hemoglobin is 14.8, and platelet count is 215. Telemetry demonstrates atrial paced rhythm, 60 beats per minute. PHYSICAL EXAMINATION: VITAL SIGNS: Temperature is 36.7 degrees Celsius, pulse 64 beats per minute and regular, respiratory rate 20 breaths per minute, blood pressure 140/75, and SaO2 is 100% on room air. GENERAL: NAD, awake, alert and oriented x3. Well nourished. HEENT: Mucous membranes moist. No scleral icterus. Conjunctivae pink. NECK: Supple with no JVD, no HJR, and no carotid bruit. HEART: Regular with a normal S1 and S2. No murmur, rub or gallop. LUNGS: Clear without rales, rhonchi or wheeze. ABDOMEN: Soft and nontender. No rebound or guarding. Normal bowel sounds. EXTREMITIES: Warm and dry. There is no clubbing, cyanosis or edema. NEUROLOGIC: Demonstrates no focal deficit. FINAL IMPRESSION: 1. A 65-year-old male presents with near syncope, associated palpitations and chest discomfort. I suspect paroxysmal tachydysrhythmia as potential etiology. There is also presence of mild orthostatic blood pressure changes noted on exam; however, his symptoms were not positional. 2. Sick sinus syndrome, status post pacemaker implantation. 3. Hypertension -- borderline controlled. 4. Dyslipidemia. 5. Active tobacco abuse. PLAN AND RECOMMENDATIONS: This patient will be admitted for observation. Cardiac enzymes will be cycled x3 sets. Pacemaker interrogation has been ordered with results pending at this time to assess for presence of dysrhythmia during his symptomatic periods. Pending review of pacemaker interrogation, we will consider titration of beta-porter therapy during admission given recent transition from atenolol to Toprol-XL. Consider also stress testing during admission versus outpatient setting pending review of lab studies and clinical course. Thank you for allowing me to take part in the care of your patient.
[2016-10-25 19:35] VITALS: BP 120/65; PULSE 67; TEMP 36.8; O2SAT 98
[2016-10-25 20:00] VITALS: O2SAT 98
[2016-10-25] MEDS ORDERED: ENOXAPARIN 40 MG/0.4 ML SYR SC SCH (21:00)
[2016-10-25] MEDS ORDERED: METOPROLOL SUCC 25MG EXT REL TAB PO SCH (21:00)
[2016-10-26] VITALS: BP 138/85; PULSE 84; TEMP 36.6; O2SAT 97
[2016-10-26 04:00] VITALS: BP 115/72; PULSE 60; TEMP 36.5; O2SAT 98
[2016-10-26 07:24] VITALS: BP 117/69; PULSE 71; TEMP 36.5; O2SAT 98
[2016-10-26] MEDS ORDERED: MAGNESIUM OXIDE 400 MG TAB PO SCH (09:00)
[2016-10-26] MEDS ORDERED: ASPIRIN 81 MG ECTAB PO SCH (09:00)
[2016-10-26] MEDS ORDERED: METOPROLOL SUCC 50MG EXT REL TAB PO SCH (09:00)
[2016-10-26] MEDS ORDERED: METOPROLOL SUCC 25MG EXT REL TAB PO SCH (09:00)
[2016-10-26] MEDS ORDERED: ATORVASTATIN 40 MG TAB PO SCH (09:00)
--- NOTE | 2016-10-26 10:09 | CARDIOLOGY PROGRESS NOTE ---
DATE: 10/26/2016 DATE: 10/26/2016 SUBJECTIVE: The patient was seen and examined at the bedside. No recurrent atrial tachycardia overnight. Pacemaker interrogation performed 10/25/2016 reviewed demonstrating episodes of paroxysmal atrial tachycardia with heart rates up to 140 beats per minute correlating with symptoms. Beta porter was titrated to 75 mg daily. The patient offers no complaints at this time. REVIEW OF SYSTEMS: Pertinent positives noted above. A 3-system review including cardiovascular, pulmonary, and neurologic systems otherwise negative. LABORATORY DATA: Cardiac enzymes are undetectable. Sodium 138, potassium 4.5, chloride 107, CO2 is 30, BUN is 13, creatinine 0.80, TSH 1.120. Telemetry demonstrates atrial paced rhythm. No recurrent dysrhythmia. PHYSICAL EXAMINATION: VITAL SIGNS: Temperature is 36.5 degrees Celsius, pulse 71 beats per minute and regular, respiratory rate is 28 breaths per minute, blood pressure 117/69, SAO2 is 98% on room air. GENERAL: NAD, awake, alert and oriented x3. HEAD, EYES, EARS, NOSE, AND THROAT: Mucous membranes moist. No scleral icterus. Conjunctivae pink. NECK: Supple, no JVD, no HJR, no carotid bruit. HEART: Regular with a normal S1 and S2. No murmur, rub, or gallop. LUNGS: Clear without rales, rhonchi or wheeze. ABDOMEN: Soft, nontender. No rebound or guarding. Normal bowel sounds. EXTREMITIES: Warm and dry without clubbing, cyanosis, or edema. NEUROLOGIC EXAMINATION: Demonstrates no focal deficit. FINAL IMPRESSION: 1. Palpitations and near syncope correlating with episodes of paroxysmal atrial tract tachycardia on pacemaker interrogation. 2. Atypical chest discomfort related to paroxysmal atrial tachycardia. 3. No evidence of acute coronary syndrome with negative cardiac enzymes, nonischemic ECG, and resting 2D transthoracic echo without regional wall motion abnormality. 4. Hypertension, controlled. PLAN AND RECOMMENDATIONS: The patient will continue his Toprol-XL 75 mg daily. Will plan an exercise stress echocardiography in the near future. The patient wishes to postpone testing until December 02 when he will have insurance coverage. Other outpatient medications will be continued as previously ordered. I will arrange for cardiology followup in 2-4 weeks. The patient may be discharged from a cardiovascular perspective.
[2016-10-26 11:26] VITALS: BP 98/68; PULSE 67; TEMP 36.9; O2SAT 98
--- NOTE | 2016-10-26 12:16 | Progress Note ---
Internal Med Progress Note Date of Service: Oct 26, 2016. Provider Documentation: SUBJECTIVE: The patient was seen and examined No more symptoms since admission Was seen by the [id number] and cleared to be discharged OBJECTIVE: Vital Signs-as noted below Exam: General-No distress Eyes-normal ENT-normal Neck-supple Lungs-clear to ausucltate bilaterally Heart-Regular,no murmur appreciated Abdomen-Benign,no masses,bowel sound present Extremities-No edema Neuro-AAOx3 Lab data as noted below. ASSESSMENT & PLAN: This is a 65yo male with a PMH of paroxysmal A Fib with tachy-tien syndrome (s/ p PM placement in 2008), HTN, HLD and tobacco abuse who presents with intermittent pre-syncopal episodes over the past 3 days. Pre-syncopal episodes: -Patient with paroxysmal A Fib with tachy-tien syndrome (s/p PM placement in 2008) -Pacemaker interrogated in 07/18 and was functioning normally -EKG normal, serial troponins neg-No ACS -CXR wnl and ECHO-No WMA -Carotid dopplers ::Atherosclerosis without evidence of hemodynamically significant stenosis seen within the carotid arteries. Appreciate cardiology input Will discharge home today HTN: -Normotensive -Continue home dose of metoprolol HLD: -Controlled, fasting lipid panel wnl on 2016 labwork -Continue statin Tobacco Abuse: -H/o 1/2 PPD for >30 years -Smoking cessation consult placed Discharge today Vital Signs: Date Time Temp Pulse Resp B/P (MAP) Pulse Ox O2 Delivery O2 Flow Rate FiO2 10/26/16 09:00 Room Air 10/26/16 07:24 36.5 71 20 117/69 (85) 98 Room Air 10/26/16 04:00 36.5 60 18 115/72 (86) 98 Room Air 10/26/16 04:00 Room Air 10/26/16 00:00 36.6 84 18 138/85 (102) 97 Room Air 10/26/16 00:00 Room Air 10/25/16 20:00 98 Room Air 10/25/16 19:35 36.8 67 18 120/65 (83) 98 Room Air 10/25/16 17:37 36.7 77 20 134/91 100 Room Air 10/25/16 16:49 64 22 94 10/25/16 14:03 64 20 140/75 100 Room Air 10/25/16 12:55 60 112/70 66 128/80 70 109/71 Lab Results: Results Past 24 Hours Test 10/25/16 12:35 10/25/16 12:45 10/25/16 21:28 10/26/16 03:01 Range/Units White Blood Count 5.54 4.8-10.8 K/uL Red Blood Count 4.54 4.7-6.1 M/uL Hemoglobin 14.8 14.0-18.0 g/dL Hematocrit 43.6 42-52 % Mean Corpuscular Volume 96.0 80-100 fL Mean Corpuscular Hemoglobin 32.6 25-34 pg Mean Corpuscular Hemoglobin Concent 33.9 32-36 g/dl Platelet Count 215 130-400 K/uL Mean Platelet Volume 11.1 7.4-10.4 fL Neutrophils (%) (Auto) 60.5 % Lymphocytes (%) (Auto) 28.5 % Monocytes (%) (Auto) 9.2 % Eosinophils (%) (Auto) 1.4 % Basophils (%) (Auto) 0.4 % Neutrophils # (Auto) 3.35 1.4-6.5 K/uL Lymphocytes # (Auto) 1.58 1.2-3.4 K/uL Monocytes # (Auto) 0.51 0.11-0.59 K/uL Eosinophils # (Auto) 0.08 0-0.5 K/uL Basophils # (Auto) 0.02 0-0.2 K/uL RDW Standard Deviation 46.4 36.4-46.3 fL RDW Coefficient of Variation 13.2 11.5-14.5 % Immature Granulocyte % (Auto) 0.0 % Immature Granulocyte # (Auto) 0.00 0.00-0.02 K/uL Sodium Level 138 136-145 mmol/L Potassium Level 4.5 3.5-5.1 mmol/L Chloride Level 107 98-107 mmol/L Carbon Dioxide Level 30 21-32 mmol/L Anion Gap 1.0 3-11 mmol/L Blood Urea Nitrogen 13 7-18 mg/dl Creatinine 0.80 0.60-1.40 mg/dl Estimated GFR () 109.4 Estimated GFR (Non- 94.4 BUN/Creatinine Ratio 15.7 10-20 Random Glucose 76 70-99 mg/dl Calcium Level 9.2 8.5-10.1 mg/dl Magnesium Level 2.1 1.8-2.4 mg/dl Total Bilirubin 0.4 0.2-1 mg/dl Aspartate Amino Transf (AST/SGOT) 22 15-37 U/L Alanine Aminotransferase (ALT/SGPT) 24 12-78 U/L Alkaline Phosphatase 66 45-117 U/L Total Protein 7.0 6.4-8.2 gm/dl Albumin 3.8 3.4-5.0 gm/dl Globulin 3.2 2.5-4.0 gm/dl Albumin/Globulin Ratio 1.2 0.9-2 Thyroid Stimulating Hormone (TSH) 1.120 0.300-4.500 uIu/ml Hepatitis C Antibody Screen NEG NEG Bedside Troponin I < 0.030 0-0.045 ng/ml Troponin I < 0.015 < 0.015 0-0.045 ng/ml
[2016-10-26] MEDS ORDERED: TPRSR50 PO (12:17)
[2016-10-26] MEDS ORDERED: TPRSR25 PO (12:17)
--- NOTE | 2016-10-26 12:19 | Discharge Instructions ---
Discharge Instructions Date of Service Oct 26, 2016. Admission Reason for Admission: Chest Pain, Pre-Syncope Discharge Discharge Diagnosis / Problem: Presyncopy,Palpitation,No ACS Discharge Goals Goal(s): Prevent Disease Progression Activity Recommendations Activity Limitations: resume your previous activity . Instructions / Follow-Up Instructions / Follow-Up Dr Elias on 10/29/16 at 11:00AM Current Hospital Diet Patient's current hospital diet: AHA Diet (Heart Healthy) Discharge Diet Recommended Diet: AHA Diet (Heart Healthy) Pending Studies Studies pending at discharge: no Medical Emergencies . Who to Call and When: Medical Emergencies: If at any time you feel your situation is an emergency, please call 911 immediately. . Non-Emergent Contact Non-Emergency issues call your: Primary Care Provider . Past History Medical & Surgical History: (1) Pre-syncope (2) HTN (hypertension) (3) Paroxysmal atrial fibrillation (4) HLD (hyperlipidemia) . "Provider Documentation" section prepared by Jose Carlos Johns. . VTE Core Measure Inpt VTE Proph given/why not?: Enoxaparin (Lovenox)SQ
[2016-10-26 13:16] VITALS: BP 98/68; PULSE 67; TEMP 36.9; O2SAT 98
--- NOTE | 2016-10-27 08:11 | Discharge Summary ---
Discharge Summary Date of Service Oct 27, 2016. Discharge Summary Admission Date: Oct 25, 2016 at 15:01 Discharge Date: Oct 26, 2016 Discharge Disposition: Home Principal Diagnosis: Presyncope,Palpitation,No ACS Secondary Diagnoses/Problems: Please see H&P and Hospital Progress note Consultations: Cardiology Medication Reconciliation New Medications: Metoprolol Succinate (Metoprolol Succinate ER) 50 Mg Tabcr 50 MG PO QAM for 30 Days, #30 Metoprolol Succinate (Metoprolol Succinate ER) 25 Mg Tabcr 25 MG PO QPM for 30 Days, #30 Continued Medications: Aspirin (Aspirin) 81 Mg Tab 81 MG PO DAILY Atorvastatin (Lipitor) 40 Mg Tab 40 MG PO DAILY, TAB Cyanocobalamin (Vitamin B-12 1000 Mcg) 1,000 Mcg Tab 1000 MCG PO DAILY, TAB Lorazepam (Ativan) 0.5 Mg Tab 0.5 MG PO 1-3X PER WEEK PRN, TAB Magnesium Oxide (Mag-Ox) 400 Mg Tab 400 MG PO DAILY, 0 Refills Multivitamin (Multivitamin) Tab 1 TAB PO DAILY, 0 Refills Discontinued Medications: Metoprolol Succinate (Metoprolol Succinate ER) 25 Mg Tabcr 37.5 MG PO DAILY Admission Information HPI (per Admitting provider): This is a 65yo male with a PMH of 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 Patient states that each episode has a sudden onset of lightheadedness, headache, chest tightness and nausea and lasts for a few minutes. During the episode, patient starts to feel short of breath and notices his heart beat increasing. Endorses some transient confusion afterwards. Seems to be brought on during exertion and at rest. Denies visual changes, LOC, seizure, vomiting, or weakness in extremities. Came into the ED for these symptoms on 10/23, when they initially started, and work up was negative. CXR, head CT, labwork, EKG and cardiac enzymes were all within normal limits. Over the past two days, episodes have increased in frequency. Patient follows with Saba in clinic and was told to come to the ED by his office. Had pacemaker placed in 2008 and it was most recently interrogated in July 2016. Denies any history of CAD,CVA, seizures. Past Medical/Surgical History Medical Problems: (1) HLD (hyperlipidemia) Status: Chronic (2) HTN (hypertension) Status: Chronic (3) Paroxysmal atrial fibrillation Status: Chronic (4) Tachy-tien syndrome Permanent Comment: S/p pacemaker in 2008 Status: Chronic Family History Cancer Lung disease Social History Smoking Status: Current Every Day Smoker (1/2 PPD for >30 years ) Marital Status: Occupational Status: employed Immunizations History of Influenza Vaccine: No History of Tetanus Vaccine?: YES 08/11 History of Pneumococcal: No History of Hepatitis B Vaccine: No Multi-Drug Resistant Organisms History of MDRO: No Allergies Coded Allergies: Sulfa Drugs (Verified Allergy, Intermediate, HIVES, 10/23/16) Home Medications Scheduled Aspirin (Aspirin), 81 MG PO DAILY Atorvastatin (Lipitor), 40 MG PO DAILY Cyanocobalamin (Vitamin B-12 1000 Mcg), 1,000 MCG PO DAILY Lorazepam (Ativan), 0.5 MG PO 1-3X PER WEEK PRN Magnesium Oxide (Mag-Ox), 400 MG PO DAILY Metoprolol Succinate (Metoprolol Succinate ER), 37.5 MG PO DAILY Multivitamin (Multivitamin), 1 TAB PO DAILY Review of Systems Ten systems reviewed and negative except as noted in the HPI. Physical Ex - H&P Physical Exam Vital Signs Date Time Temp Pulse Resp B/P (MAP) Pulse Ox O2 Delivery O2 Flow Rate FiO2 10/25/16 14:03 64 20 140/75 100 Room Air 10/25/16 12:55 60 112/70 66 128/80 70 109/71 10/25/16 11:46 60 10/25/16 11:43 97 Room Air 10/25/16 11:43 36.7 67 20 141/88 97 Room Air General Appearance: WD/WN, no apparent distress Head: normocephalic, atraumatic Eyes: normal inspection, sclerae normal ENT: hearing grossly normal Neck: supple, no adenopathy, no carotid bruits, trachea midline Respiratory/Chest: chest non-tender, lungs clear, normal breath sounds, no respiratory distress, no accessory muscle use Cardiovascular: regular rate, rhythm, no murmur Abdomen/GI: normal bowel sounds, non tender, soft, no organomegaly Back: normal inspection Extremities/Musculoskelatal: normal inspection, no calf tenderness, normal capillary refill, no pedal edema Neurologic/Psych: no motor/sensory deficits, alert, normal mood/affect, oriented x 3 Skin: normal color, warm/dry, no rash Diagnostics - H&P Diagnostics Laboratory Results Results Past 24 Hours Test 10/25/16 12:35 Range/Units White Blood Count 5.54 4.8-10.8 K/uL Red Blood Count 4.54 4.7-6.1 M/uL Hemoglobin 14.8 14.0-18.0 g/dL Hematocrit 43.6 42-52 % Mean Corpuscular Volume 96.0 80-100 fL Mean Corpuscular Hemoglobin 32.6 25-34 pg Mean Corpuscular Hemoglobin Concent 33.9 32-36 g/dl Platelet Count 215 130-400 K/uL Mean Platelet Volume 11.1 7.4-10.4 fL Neutrophils (%) (Auto) 60.5 % Lymphocytes (%) (Auto) 28.5 % Monocytes (%) (Auto) 9.2 % Eosinophils (%) (Auto) 1.4 % Basophils (%) (Auto) 0.4 % Neutrophils # (Auto) 3.35 1.4-6.5 K/uL Lymphocytes # (Auto) 1.58 1.2-3.4 K/uL Monocytes # (Auto) 0.51 0.11-0.59 K/uL Eosinophils # (Auto) 0.08 0-0.5 K/uL Basophils # (Auto) 0.02 0-0.2 K/uL RDW Standard Deviation 46.4 36.4-46.3 fL RDW Coefficient of Variation 13.2 11.5-14.5 % Immature Granulocyte % (Auto) 0.0 % Immature Granulocyte # (Auto) 0.00 0.00-0.02 K/uL Sodium Level 138 136-145 mmol/L Potassium Level 4.5 3.5-5.1 mmol/L Chloride Level 107 98-107 mmol/L Carbon Dioxide Level 30 21-32 mmol/L Anion Gap 1.0 3-11 mmol/L Blood Urea Nitrogen 13 7-18 mg/dl Creatinine 0.80 0.60-1.40 mg/dl Estimated GFR () 109.4 Estimated GFR (Non- 94.4 BUN/Creatinine Ratio 15.7 10-20 Random Glucose 76 70-99 mg/dl Calcium Level 9.2 8.5-10.1 mg/dl Magnesium Level 2.1 1.8-2.4 mg/dl Total Bilirubin 0.4 0.2-1 mg/dl Aspartate Amino Transf (AST/SGOT) 22 15-37 U/L Alanine Aminotransferase (ALT/SGPT) 24 12-78 U/L Alkaline Phosphatase 66 45-117 U/L Total Protein 7.0 6.4-8.2 gm/dl Albumin 3.8 3.4-5.0 gm/dl Globulin 3.2 2.5-4.0 gm/dl Albumin/Globulin Ratio 1.2 0.9-2 Thyroid Stimulating Hormone (TSH) 1.120 0.300-4.500 uIu/ml Diagnostic Radiology CXR: IMPRESSION: No acute cardiopulmonary process. EKG Atrial-paced rhythm of 64 bpm (EKG yet to be uploaded) Impression - H&P Impression Assessment and Plan This is a 65yo male with a PMH of paroxysmal A Fib with tachy-tien syndrome (s/ p PM placement in 2008), HTN, HLD and tobacco abuse who presents with intermittent pre-syncopal episodes over the past 3 days. Pre-syncopal episodes: -Patient with paroxysmal A Fib with tachy-tien syndrome (s/p PM placement in 2008) -Likely a cardiogenic cause vs. orthostatic hypotension -Pacemaker interrogated in 07/18 and was functioning normally -EKG normal, troponin neg x 1 -CXR wnl -Patient sent in by Dr. Walter -Ordered Echo -Ordered PM interrogation -Appreciate further recs -On tele for observation -Trend troponin -Repeat EKG in AM -Orthostatic vitals -Carotid dopplers HTN: -Normotensive -Continue home dose of metoprolol HLD: -Controlled, fasting lipid panel wnl on 2016 labwork -Continue statin Tobacco Abuse: -H/o 1/2 PPD for >30 years -Smoking cessation consult placed DVT Ppx: Lovenox Code status: FULL Dispo: Plan to return home once medically stable Attending Physician Addendum Dr. Cain I have performed the physical exam with PIERRE Young and I agree with PIERRE Young's assessment and plan and would like to add the following comments: This is a 65 year old M with multiple episodes of chest pain and associated with nausea and lightheadedness. On exam patient is awake and alert and in no acute distress in the ED. His heart sounds are in normal rhythm and lungs are clear on auscultation and no swelling of lower extremities. He has a pacemaker with EKG showing atrial paced rhythm around 65 beats per minute. Initial troponin is negative. Will trend troponins and monitor on telemetry and obtain cardiology service consultation and assistance for pacemaker interrogation. Level of Care Telemetry Resuscitation Status FULL RESUSCITATION VTE Prophylaxis VTE Risk Assessment Done? Y/N: Yes Risk Level: Moderate Given or contraindicated: Enoxaparin (Lovenox)SQ Physical Exam (per Admitting): General Appearance: WD/WN, no apparent distress Head: normocephalic, atraumatic Eyes: normal inspection, sclerae normal ENT: hearing grossly normal Neck: supple, no adenopathy, no carotid bruits, trachea midline Respiratory/Chest: chest non-tender, lungs clear, normal breath sounds, no respiratory distress, no accessory muscle use Cardiovascular: regular rate, rhythm, no murmur Abdomen/GI: normal bowel sounds, non tender, soft, no organomegaly Back: normal inspection Extremities/Musculoskelatal: normal inspection, no calf tenderness, normal capillary refill, no pedal edema Neurologic/Psych: no motor/sensory deficits, alert, normal mood/affect, oriented x 3 Skin: normal color, warm/dry, no rash Hospital Course This is a 65yo male with a PMH of paroxysmal A Fib with tachy-tien syndrome (s/ p PM placement in 2008), HTN, HLD and tobacco abuse who presents with intermittent pre-syncopal episodes over the past 3 days. Pre-syncopal episodes: -Patient with paroxysmal A Fib with tachy-tien syndrome (s/p PM placement in 2008) -Pacemaker interrogated in 07/18 and was functioning normally -EKG normal, serial troponins neg-No ACS -CXR wnl and ECHO-No WMA -Carotid dopplers ::Atherosclerosis without evidence of hemodynamically significant stenosis seen within the carotid arteries. Appreciate cardiology input Will discharge home today HTN: -Normotensive -Continue home dose of metoprolol HLD: -Controlled, fasting lipid panel wnl on 2016 labwork -Continue statin Tobacco Abuse: -H/o 1/2 PPD for >30 years -Smoking cessation consult placed Discharge today Total time spent on discharge = 35 minutes This includes examination of the patient, discharge planning, medication reconciliation, and communication with other providers. Discharge Instructions Date of Service Oct 26, 2016. Admission Reason for Admission: Chest Pain, Pre-Syncope Discharge Discharge Diagnosis / Problem: Presyncopy,Palpitation,No ACS Discharge Goals Goal(s): Prevent Disease Progression Activity Recommendations Activity Limitations: resume your previous activity . Instructions / Follow-Up Instructions / Follow-Up Dr Elias on 10/29/16 at 11:00AM Current Hospital Diet Patient's current hospital diet: AHA Diet (Heart Healthy) Discharge Diet Recommended Diet: AHA Diet (Heart Healthy) Pending Studies Studies pending at discharge: no Medical Emergencies . Who to Call and When: Medical Emergencies: If at any time you feel your situation is an emergency, please call 911 immediately. . Non-Emergent Contact Non-Emergency issues call your: Primary Care Provider . Past History Medical & Surgical History: (1) Pre-syncope (2) HTN (hypertension) (3) Paroxysmal atrial fibrillation (4) HLD (hyperlipidemia) . "Provider Documentation" section prepared by Jose Carlos Johns. . VTE Core Measure Inpt VTE Proph given/why not?: Enoxaparin (Lovenox)SQ <Electronically signed by Jose Carlos Johns M.D.> Signed: 10/26/16 1219 Additional Copies To Kalani Elias D.O.
== END 2016-10-26 13:40 | disposition home or self-care (01) ==
LOC: EDBD 11:33 → C.EDB 11:34 → C.2E 15:01 → ENRESERV 16:09
PROVIDERS: ADMIT Hospitalist; ATTEND Internal Medicine
DX: R07.2 Precordial pain (principal); R55 Syncope and collapse; R00.2 Palpitations; I49.9 Cardiac arrhythmia, unspecified; Z95.0 Presence of cardiac pacemaker; Z79.899 Other long term (current) drug therapy; F17.210 Nicotine dependence, cigarettes, uncomplicated; I10 Essential (primary) hypertension; E78.5 Hyperlipidemia, unspecified; Z79.82 Long term (current) use of aspirin

== ENCOUNTER → 2017-06-05 | Day surgery (SDC) | payer OTHER ==
[2017-05-30 14:53] VITALS: Ht 182.9 cm; Wt 72.7 kg
[~2017-06-05] VITALS: Ht 182.9 cm; Wt 72.7 kg
[~2017-06-05] MED LIST changes: -ATEN-173 PO; +LIDOCAINE HCL 2% 2 ML VIAL (20MG/ML) ONE; -LORA-741 PO; +METO100T44 PO; +PROPOFOL IV EMULSION 10 MG/ML 20 ML VIAL IV ONE; +SODIUM CHLORIDE 0.9% 500ML 500 ML IV ONE; -TPRSR25 PO
--- NOTE | 2017-06-05 09:41 | Endo History and Physical ---
History & Physical Date of Service: Jun 05, 2017. Chief Complaint: Referring Physician: History of Present Illness 66 yo presenting for average risk screening colonoscopy. No GI complaints. Past Surgical History Hx Cardiac Surgery: Yes (PACEMAKER) Hx Internal Defibrillator: No Hx Pacemaker: Yes Hx Abdominal Surgery: Yes (INGUINAL HERNIA) Hx of Implantable Prosthesis: No Hx Post-Op Nausea and Vomiting: No Hx Cancer Surgery: No Hx Thoracic Surgery: No Hx Orthopedic: No Hx Urinary Tract Surgery: No Family History None Social History Smoking Status: Current Every Day Smoker Hx Substance Use: No Hx Alcohol Use: Yes (2-4 beers weekly) Allergies Coded Allergies: Sulfa Drugs (Verified Allergy, Intermediate, HIVES, 06/05/17) Current Medications Reported Home Medications Medications Dose Route/Sig Max Daily Dose Days Date Category Toprol-Xl (Metoprolol Succinate) 100 Mg Tabcr 100 Mg PO QAM 05/30/17 Reported Lipitor (Atorvastatin) 40 Mg Tab 40 Mg PO QPM 10/23/16 Reported Aspirin 81 Mg Tab 81 Mg PO QPM 10/23/16 Reported Vitamin B-12 1000 Mcg (Cyanocobalamin) 1,000 Mcg Tab 1,000 Mcg PO QPM 12/10/11 Reported Multivitamin (Multivitamins) Tab 1 Tab PO QPM 11/28/09 Reported Mag-Ox (Magnesium Oxide) 400 Mg Tab 400 Mg PO QPM 02/28/09 Reported Vital Signs Weight (Kilograms): 72.73 Height (Feet): 6 Height (Inches): 0 Physical Exam General Appearance: WD/WN, no apparent distress, + thin Respiratory/Chest: Respiratory effort: no dyspnea Auscultation: breath sounds normal, CTA except as noted, no wheezing Cardiovascular: Apical Impulse: not displaced Heart Auscultation: RRR, normal S1, normal S2 Abdomen: Bowel Sounds: normal Inspection & Palpation: soft, non-distended Assessment and Plan 66 yo presenting for average risk screening colonoscopy. -Proceed with colonoscopy
--- NOTE | 2017-06-05 10:55 | GI REPORT ---
Procedure Date: 06/05/2017 10:05 AM Procedure: Colonoscopy Indications: Screening for colorectal malignant neoplasm Medicines: Monitored Anesthesia Care Complications: No immediate complications. Estimated blood loss: None. Estimated Blood Loss: Estimated blood loss: none. Procedure: Pre-Anesthesia Assessment: - Pre-Anesthesia Assessment: - Prior to the procedure, a History and Physical was performed, and patient medications, allergies and sensitivities were reviewed. The patient's tolerance of previous anesthesia was reviewed. Please see [facility] for complete details. - The risks and benefits of the procedure and the sedation options and risks were discussed with the patient. All questions were answered and informed consent was obtained. - Patient identification and proposed procedure were verified prior to the procedure by the physician and the nurse. The procedure was verified in the pre-procedure area in the procedure room. After obtaining informed consent, the endoscope was passed carefully and meticuously under direct vision and only advanced when the lumen was clearly identified, C02 insuflation was utilized throughout the entirity of the procedure. Throughout the procedure, the patient's blood pressure, pulse, and oxygen saturations were monitored continuously. After I obtained informed consent, the scope was passed under direct vision. Throughout the procedure, the patient's blood pressure, pulse, and oxygen saturations were monitored continuously. The scope was introduced through the anus and advanced to the cecum, identified by appendiceal orifice and ileocecal valve. The colonoscopy was performed without difficulty. The patient tolerated the procedure well. The quality of the bowel preparation was good. Findings: Two sessile polyps were found in the ascending colon. The polyps were 2 to 4 mm in size. These polyps were removed with a cold snare. Resection and retrieval were complete. A 20 mm polyp was found in the sigmoid colon at approximately 20 cm from verge. The polyp was semi-pedunculated. The polyp was removed with a saline/epineprhine injection-lift technique using a hot snare. The polyp was removed with a piecemeal technique using a hot snare. Resection and retrieval were complete. To prevent bleeding post-intervention, two hemostatic clips were successfully placed (MR conditional). There was no bleeding during, or at the end, of the procedure. Area was tattooed with an injection of Nikki ink. A 8 mm polyp was found in the rectum. The polyp was pedunculated. The polyp was removed with a saline injection-lift technique using a hot snare. Resection and retrieval were complete. To prevent bleeding post-intervention, two hemostatic clips were successfully placed. There was no bleeding during, or at the end, of the procedure. A 3 mm polyp was found in the rectum. The polyp was sessile. The polyp was removed with a cold snare. Resection and retrieval were complete. Multiple small-mouthed diverticula were found in the sigmoid colon. The terminal ileum appeared normal. Internal hemorrhoids were found during retroflexion. The exam was otherwise without abnormality on direct and retroflexion views. Impression: - Two 2 to 4 mm polyps in the ascending colon, removed with a cold snare. Resected and retrieved. - One 20 mm polyp in the sigmoid colon, removed using injection-lift and a hot snare and removed piecemeal using a hot snare. Resected and retrieved. Clips (MR conditional) were placed. Tattooed. - One 8 mm polyp in the rectum, removed using injection-lift and a hot snare. Resected and retrieved. Clips were placed. - One 3 mm polyp in the rectum, removed with a cold snare. Resected and retrieved. - Diverticulosis in the sigmoid colon. - The examined portion of the ileum was normal. - Internal hemorrhoids. - The examination was otherwise normal on direct and retroflexion views. Recommendation: - Discharge patient to home (with escort). - Await pathology results. - Repeat colonoscopy in 6 months for surveillance after piecemeal polypectomy. If advanced pathology is noted then consider partial colectomy. - Return to referring physician as previously scheduled. Eduardo Rao MD 06/05/2017 10:55:31 AM This report has been signed electronically. Note Initiated On: 06/05/2017 10:05 AM I attest to the content of the Intraoperative Record and orders documented therein, exceptions below
--- NOTE | 2017-06-05 11:00 | Discharge Instructions ---
Endoscopy Patient Instructions Date / Procedure(s) Performed Jun 05, 2017. Colonoscopy Allergy Information Coded Allergies: Sulfa Drugs (Verified Allergy, Intermediate, HIVES, 06/05/17) Discharge Date / Findings Jun 05, 2017. Findings: 2 polyps in ascending colon-resected completely One large 2 cm polyp in the sigmoid colon, resected in a piecemeal fashion and tattooed. Prophylactic clips placed 8 mm polyp in rectum injected and resected. Prophylactic clips placed 3 mm rectal polyp resected Recommendation: - Discharge patient to home (with escort). - Await pathology results. - Repeat colonoscopy in 6 months for surveillance after piecemeal polypectomy. If advanced pathology is noted then consider partial colectomy. - Return to referring physician as previously scheduled. Medication Instructions Stopped Medication(s): Aspirin last dose 06/04/17. Provider Instructions Activity Restrictions - No exercising or heavy lifting for 24 hours. - Do not drink alcohol the day of the procedure. - Do not drive a car or operate machinery until the day after the procedure. - Do not make any important decisions or sign important papers in 24 hours after the procedure. Following Day: - Return to full activity which may include returning to work/school. Diet Start your diet with liquids and light foods (jello, soup, juice, toast). Then eat your usual diet if not nauseated. Treatment For Common After Affects For mild abdominal pain, bloating, or excessive gas: - Rest - Eat lightly - Lie on right side Follow-Up Information Follow-up with Dr. Elias as scheduled Anesthesia Information What You Should Know You have had a procedure that required some medicine to reduce anxiety and discomfort. This treatment is called moderate sedation. After receiving the treatment, you may be sleepy, but you will be able to breathe on your own. The effects of the treatment may last for several hours. Follow these instructions along with Activity/Diet recommendations noted above: * Do NOT do anything where dizziness or clumsiness would be dangerous. * Rest quietly at home today, then you can be up and about tomorrow. * Have a responsible person stay with you the rest of today. * You may have had an I.V. today. If so, you may take the dressing off later today. Recommendations Call your doctor if: * Trouble breathing * Continuous vomiting for more than 24 hours * Temperature above 101 degrees * Severe abdominal pain or bloating * Pain not relieved by pain medicine ordered * There is increased drainage or redness from any incision * A large amount of rectal bleeding greater than 2-3 tablespoons. (If you had a polyp/s removed or have hemorrhoids, a small amount of blood - from the rectum is to be expected.) * You have any unanswered questions or concerns. IN THE EVENT OF A SERIOUS EMERGENCY, GO TO THE NEAREST EMERGENCY ROOM Your discharge instructions were prepared by provider Eduardo Rao. Patient Instructions Signature Page Arturo Diego Patient (or Guardian) Signature/Date: I have read and understand the instructions given to me by my caregivers. Caregiver/RN/Doctor Signature/Date: The above-named patient and/or guardian has received patient instructions on this date. + Original Patient Signature Page (only) stays with chart. Please make copy for patient.
--- NOTE | 2017-06-05 11:12 | Anesthesiology Progress Note ---
Anesthesia Post Op Note Date & Time Jun 05, 2017 at 11:12 Vital Signs Pain Intensity: 0 Vital Signs Past 12 Hours Date Time Temp Pulse Resp B/P (MAP) Pulse Ox O2 Delivery O2 Flow Rate FiO2 06/05/17 11:03 73 20 118/72 (87) 100 Room Air 06/05/17 10:48 36.7 79 16 100/48 (65) 98 Room Air 06/05/17 09:48 36.8 77 20 113/72 (86) 99 Room Air Notes Mental Status: alert / awake / arousable, participated in evaluation Pt Amnestic to Procedure: Yes Nausea / Vomiting: adequately controlled Pain: adequately controlled Airway Patency, RR, SpO2: stable & adequate BP & HR: stable & adequate Hydration State: stable & adequate Anesthetic Complications: no major complications apparent
[2017-06-05 11:20] VITALS: BP 124/76; PULSE 74; O2SAT 96
== END | disposition home or self-care (01) ==
LOC: C.GI 09:21
PROVIDERS: ATTEND Internal Medicine
DX: Z12.11 Encounter for screening for malignant neoplasm of colon (principal); D12.2 Benign neoplasm of ascending colon; D12.8 Benign neoplasm of rectum; D12.5 Benign neoplasm of sigmoid colon; F17.200 Nicotine dependence, unspecified, uncomplicated; M19.90 Unspecified osteoarthritis, unspecified site; Z88.2 Allergy status to sulfonamides; Z95.0 Presence of cardiac pacemaker

== ENCOUNTER 2019-09-27 10:28 | Inpatient (IN) ==
[2019-09-27] MEDS ORDERED: SODIUM CHLORIDE 0.9% 1000ML 1,000 ML IV SCH ×2 (11:45→15:00)
--- NOTE | 2019-09-27 11:48 | Emergency Department Note ---
Impression & Plan Near syncope, Dizziness, Pacemaker complications ED Provider Note NAME: ERICKA MARTINEZ AGE: 68 SEX: M : 1950 ARRIVES VIA: Ambulance INFORMANT: [Patient][nurse, ems] ED PROVIDER(S): [Tray Damico MD] CHIEF COMPLAINT: Shortness of breath HISTORY OF PRESENT ILLNESS: The patient is a 68-year-old male who states that about 2.5 hours ago he suddenly felt lightheaded and dizzy. He began feeling short of breath and his hands got numb. The patient had to lay down because he thought he may pass out. There was no chest pain but he felt his heart may have been beating quickly. The patient has been in baseline health. The patient is due to have his pacemaker changed 2 days from today. The pacemaker has run out of its life. The patient states that his symptoms today lasted for about an hour and then resolved. He feels back to baseline now. There has been no cough or cold or congestion. He has not had fever. He has not had any abdominal pain, vomiting or diarrhea. He has been in baseline health. REVIEW OF SYSTEMS: See HPI for pertinent positives and negatives. A total of ten systems were reviewed and were otherwise negative. PMHx/PSHx: See Below SOCIAL HISTORY: See Below. PHYSICAL EXAM: GENERAL: Patient is in no acute distress. HEENT: No acute trauma, normocephalic atraumatic, mucous membranes moist, no nasal congestion, no scleral icterus. NECK: No stridor, no adenopathy, no meningismus, trachea is midline. LUNGS: Clear to auscultation bilaterally, no wheeze, no rhonchi, breath sounds equal. HEART: Without murmurs gallops or rubs, regular rate and rhythm. ABDOMEN: Soft, nontender, bowel sounds positive, no hernias, no peritonitis. EXTREMITIES: No cyanosis or edema, full range of motion of all the joints without pain or difficulty, no signs for acute trauma. NEUROLOGIC: Oriented x 3, no acute motor or sensory deficits, no focal weakness. SKIN: No rash, no jaundice, no diaphoresis. DIFFERENTIAL DIAGNOSIS: Infection, dehydration, metabolic abnormality, hypo/hyperglycemia, dysrhythmia, A. fib or a flutter, pacemaker malfunction, electrolyte disturbance, anemia, hypoxia, cardiac sources, intracerebral event, toxicologic, neurologic, as well as other pathologies. EMERGENCY DEPARTMENT COURSE/PROCEDURES: ECG: Indication was shortness of breath. ECG shows a sinus rhythm with a conversion to a ventricular pacemaker. The rate is 65. There are no PVCs, no ST elevation. The QTc is 411. Continuous Cardiac Monitoring: An order was placed for continuous cardiac monitoring. The monitor shows a rate of 65 with a ventricular pacemaker. Orthostatic vital signs are negative MEDICAL DECISION MAKING: There is no leukocytosis or concerning anemia. There is a normal platelet count. No significant electrolyte abnormality or kidney failure. No worrisome liver enzyme elevation. The patient appeared to be in a euthyroid state. ECG showed sinus beats as well as ventricular beats, no acute ischemia. Cardiac enzyme testing x1 is not consistent with acute cardiac injury. Urinalysis did not show evidence for infection. Chest film did not show pneumonia, CHF or mediastinal widening. Orthostatic vital signs were negative. Patient received an IV saline bolus. He has done well here in the ED. The patient had a brief episode of feeling dizzy with tingling in his fingers. On the internet salesperson he was in sinus rhythm. His symptoms resolved when his pacemaker started to function. I talked with cardiology. A hospital stay, monitoring were suggested. The patient will likely need his pacemaker changed out sooner than Saturday. I spoke to the patient, I talked with case management. The on-call hospitalist was consulted. Past Med/Surg History Medical History AAA (abdominal aortic aneurysm) stable - Abdominal aortic duplex report 01/2019: evidence of a 3.3 centimeter abdominal aortic aneurysm. Repeat 01/21 Dyslipidemia HTN (hypertension) Paroxysmal atrial fibrillation SSS (sick sinus syndrome) s/p PM placement in 2008 Tobacco use disorder Surgical History H/O hernia repair Pacemaker 2008 Family History (Updated 09/27/19 @ 14:24 by Skylar Young PA-C) Other Lung disease Social History Smoking Status: Current every day smoker Cigarettes Per Day: 10; Second Hand Exposure: No; Do You Dip or Chew Tobacco: No; Tobacco Cessation Education Requested by Patient: No Hx Alcohol Use: Yes Alcohol type: beer Alcohol Intake Frequency: 4 or More x per/Week Hx Substance Use: No Preferred Language: Latvian Communication Ability: Effective Laser Set Up Operator Required: No Beliefs That Will Affect Care: None Current Living Situation: Spouse Other Information That Helps Us Care for You: No Feels Safe at Home: Yes Safety Concerns: Feels Safe At This Time Allergies Allergies Allergy/AdvReac Type Severity Reaction Status Date / Time Sulfa (Sulfonamide Allergy Intermediate HIVES Verified 09/27/19 11:20 Antibiotics) Home Meds Home Medications Medication Instructions Recorded Confirmed aspirin [Aspir-81] 81 mg PO QPM 12/22/17 09/27/19 atorvastatin 40 mg PO QPM 12/22/17 09/27/19 cyanocobalamin (vitamin B-12) 1,000 mcg PO HS 12/22/17 09/27/19 magnesium oxide 400 mg PO HS 12/22/17 09/27/19 metoprolol succinate 100 mg PO QAM 12/22/17 09/27/19 Results & Data (ED) Vital Signs Vital Signs - 24 hr 09/27/19 10:36 09/27/19 10:39 09/27/19 10:45 Temperature 37.0 C Temperature Source Oral Pulse Rate - Lying Pulse Rate - Sitting Pulse Rate 65 19 L Pulse Rate from SpO2 Sensor 65 Respiratory Rate 14 19 Respiratory Effort / Characteristics Non-Labored Spontaneous Respiratory Depth Normal Respiratory Pattern Regular Blood Pressure - Sitting Blood Pressure- Standing Blood Pressure 118/72 118/72 Blood Pressure Mean 100 87 Blood Pressure Position Sitting Pulse Oximetry 97 97 97 Oxygen Delivery Method Room Air Room Air Room Air Oxygen Flow Rate 97 Sepsis Recent Fever Within 48 Hours No Sepsis New/Unexplained Change in Mental Status No Sepsis Action Taken by Nursing No Action Required 09/27/19 10:49 09/27/19 11:00 09/27/19 11:30 Temperature Temperature Source Pulse Rate - Lying Pulse Rate - Sitting Pulse Rate 66 65 65 Pulse Rate from SpO2 Sensor 66 65 65 Respiratory Rate 21 14 Respiratory Effort / Characteristics Respiratory Depth Respiratory Pattern Blood Pressure - Sitting Blood Pressure- Standing Blood Pressure 96/64 L 108/77 88/63 L Blood Pressure Mean 68 93 66 Blood Pressure Position Pulse Oximetry 98 97 98 Oxygen Delivery Method Room Air Room Air Room Air Oxygen Flow Rate Sepsis Recent Fever Within 48 Hours Sepsis New/Unexplained Change in Mental Status Sepsis Action Taken by Nursing 09/27/19 11:39 09/27/19 11:43 09/27/19 12:00 Temperature Temperature Source Pulse Rate - Lying Pulse Rate - Sitting Pulse Rate 66 66 Pulse Rate from SpO2 Sensor 65 65 Respiratory Rate 18 12 Respiratory Effort / Characteristics Respiratory Depth Respiratory Pattern Blood Pressure - Sitting Blood Pressure- Standing Blood Pressure 100/37 L 106/67 Blood Pressure Mean 72 83 Blood Pressure Position Pulse Oximetry 98 98 100 Oxygen Delivery Method Room Air Oxygen Flow Rate Sepsis Recent Fever Within 48 Hours Sepsis New/Unexplained Change in Mental Status Sepsis Action Taken by Nursing 09/27/19 12:18 09/27/19 12:39 09/27/19 12:41 Temperature Temperature Source Pulse Rate - Lying 65 Pulse Rate - Sitting 67 Pulse Rate 66 65 Pulse Rate from SpO2 Sensor 66 65 Respiratory Rate 22 19 Respiratory Effort / Characteristics Respiratory Depth Respiratory Pattern Blood Pressure - Sitting 110/66 Blood Pressure- Standing 121/56 L Blood Pressure 110/66 121/56 L Blood Pressure Mean 73 66 Blood Pressure Position Pulse Oximetry 100 100 Oxygen Delivery Method Oxygen Flow Rate Sepsis Recent Fever Within 48 Hours Sepsis New/Unexplained Change in Mental Status Sepsis Action Taken by Nursing 09/27/19 12:52 Temperature Temperature Source Pulse Rate - Lying Pulse Rate - Sitting Pulse Rate 66 Pulse Rate from SpO2 Sensor 66 Respiratory Rate 20 Respiratory Effort / Characteristics Respiratory Depth Respiratory Pattern Blood Pressure - Sitting Blood Pressure- Standing Blood Pressure 142/72 H Blood Pressure Mean 82 Blood Pressure Position Pulse Oximetry 100 Oxygen Delivery Method Oxygen Flow Rate Sepsis Recent Fever Within 48 Hours Sepsis New/Unexplained Change in Mental Status Sepsis Action Taken by Retirement Medications Current Medication List: was personally reviewed by me Laboratory Data Attestation: I reviewed the patient's lab results. Result diagrams: 09/27/19 15:32 09/27/19 10:45 Lab Results 09/27/19 09/27/19 09/27/19 Range/Units 10:45 10:45 12:30 WBC 4.80 (4.8-10.8) K/uL RBC 4.58 L (4.7-6.1) M/uL Hgb 14.5 (14.0-18.0) g/dL Hct 43.0 (42-52) % MCV 93.9 (80-100) fL MCH 31.7 (25-34) pg MCHC 33.7 (32-36) g/dL RDW Std Deviation 46.5 H (36.4-46.3) fL RDW Coeff of Kj 13.4 (11.5-14.5) % Plt Count 179 (130-400) K/uL MPV 12.2 H (7.4-10.4) fL Immature Gran % (Auto) 0.0 % Neut % (Auto) 36.9 % Lymph % (Auto) 48.1 % [place] % (Auto) 12.5 % Eos % (Auto) 2.3 % Baso % (Auto) 0.2 % Neut # (Auto) 1.77 (1.4-6.5) K/uL Lymph # (Auto) 2.31 (1.2-3.4) K/uL [place] # (Auto) 0.60 H (0.11-0.59) K/uL Eos # (Auto) 0.11 (0-0.5) K/uL Baso # (Auto) 0.01 (0-0.2) K/uL Immature Gran # (Auto) 0.00 (0.00-0.02) K/uL Sodium 141 (136-145) mmol/L Potassium 3.8 (3.5-5.1) mmol/L Chloride 107 (98-107) mmol/L Carbon Dioxide 25 (21-32) mmol/L Anion Gap 9.0 (3-11) BUN 16 (7-18) mg/dl Creatinine 1.03 (0.6-1.4) mg/dl Est Cr Clr Drug Dosing 70.4 ml/min Est GFR ( Amer) 86.7 Est GFR (Non-Af Amer) 74.8 BUN/Creatinine Ratio 15.2 (10-20) Glucose 98 (70-99) mg/dl Calcium 8.7 (8.5-10.1) mg/dl Magnesium 1.8 (1.8-2.4) mg/dl Total Bilirubin 0.7 (0.2-1) mg/dl AST 37 (15-37) U/L ALT 35 (12-78) U/L Alkaline Phosphatase 63 (45-117) U/L Troponin I < 0.015 (0-0.045) ng/ml Total Protein 6.6 (6.4-8.2) gm/dl Albumin 3.6 (3.4-5.0) gm/dl Globulin 3.0 (2.5-4.0) gm/dl Albumin/Globulin Ratio 1.2 (0.9-2) TSH 1.290 (0.300-4.500) uIu/ml Urine Color Yellow Urine Appearance Clear (Clear) Urine pH 8.0 H (4.5-7.5) Ur Specific [place] 1.005 (1.000-1.030) Urine Protein Negative (Negative) Urine Glucose (UA) Negative (Negative) Urine Ketones Negative (Negative) Urine Blood Negative (Negative) Urine Nitrite Negative (Negative) Urine Bilirubin Negative (Negative) Urine Urobilinogen Negative (Negative) Ur Leukocyte Esterase Negative (Negative) Administered Medications Sodium Chloride (Nss 1000ml) 1,000 mls @ 80 mls/hr IV .[id number] [facility] Stop: 09/28/19 03:29 Last Admin: 09/27/19 14:57 Dose: 80 mls/hr Documented by: [id number] Discontinued Medications Sodium Chloride (Nss 1000ml) 1,000 mls @ 999 mls/hr IV .[id number] [facility] Stop: 09/27/19 12:45 Last Infusion: 09/27/19 13:02 Dose: 0 mls/hr Documented by: [id number] Admin: 09/27/19 11:50 Dose: 999 mls/hr Documented by: [id number] Imaging Data Radiologist's Impression: SINGLE VIEW CHEST CLINICAL HISTORY: Generalized weakness. FINDINGS: 2 AP, portable, upright chest radiographs are compared to study dated 10/25/2016 and correlated with chest CT dated 11/28/2009. The examination is degraded by portable technique and patient rotation. A 2-lead cardiac pacemaker is unchanged in position. The mildly enlarged noting atherosclerotic calcification of the thoracic aorta. The pulmonary vasculature is noncongested. The lungs and pleural spaces are clear. No pneumothorax is seen. The skeletal structures are osteopenic. The bony thorax is grossly intact. IMPRESSION: 1. Mild cardiac enlargement and cardiac pacemaker. There is no radiographic evidence of congestive failure. 2. No airspace consolidation or pleural effusion is identified. Blood Pressure Blood Pressure Findings: Normal blood pressure Blood Pressure Disposition: further management by hospitalist Discharge Plan Visit Data *Final* Discharge Date/Time: 09/27/19 14:23 Chief Complaint: Shortness of Breath/Dyspnea ED Provider: Tray Damico Discharge Problem: Near syncope, Dizziness, Pacemaker complications Patient Disposition: Admitted As Inpatient Condition: Good Discharge Instructions Interventions: ED Discharge Assessment Last Done: 09/27/19 14:23 Discharge Problem: Pacemaker complications Qualifiers: Encounter type: initial encounter Qualified Code(s): T82.9XXA - Unspecified complication of cardiac and vascular prosthetic device, implant and graft, initial encounter
[2019-09-27 12:04] LABS: Basophils # (auto) 0.01 K/uL (0-0.2); Basophils % (auto) 0.2 %; Eosinophils # (auto) 0.11 K/uL (0-0.5); Eosinophils % (auto) 2.3 %; Hemoglobin 14.5 g/dL (14.0-18.0); Lymphocytes # (auto) 2.31 K/uL (1.2-3.4); Lymphocytes % (auto) 48.1 %; Mean Corpuscular Hemoglobin 31.7 pg (25-34); Mean Corpuscular Hgb Conc 33.7 g/dL (32-36); Mean Corpuscular Volume 93.9 fL (80-100); Mean Platelet Volume 12.2 fL (7.4-10.4); Monocytes % (auto) 12.5 %; Neutrophils # (auto) 1.77 K/uL (1.4-6.5); Neutrophils % (auto) 36.9 %; Platelet Count 179 K/uL (130-400); RDW Coefficient of Variation 13.4 % (11.5-14.5); RDW Standard Deviation 46.5 fL (36.4-46.3); Red Blood Count 4.58 M/uL (4.7-6.1)
--- NOTE | 2019-09-27 12:10 | XRay Report ---
SINGLE VIEW CHEST CLINICAL HISTORY: Generalized weakness. FINDINGS: 2 AP, portable, upright chest radiographs are compared to study dated 10/25/2016 and correla gerald with chest CT dated 11/28/2009. The examination is degraded by portable technique and patient rota tion. A 2-lead cardiac pacemaker is unchanged in position. The mildly enlarged noting atherosclerotic calcification of the thoracic aorta. The pulmonary vasculature is noncongested. The lungs and pleura l spaces are clear. No pneumothorax is seen. The skeletal structures are osteopenic. The bony thorax is grossly intact. IMPRESSION: 1. Mild cardiac enlargement and cardiac pacemaker. There is no radiographic evidence of congestive fa ilure. 2. No airspace consolidation or pleural effusion is identified. ACT 112: Negative or not required by law. Electronically signed by: Tray Vital M.D. 09/27/2019 12:09 PM
[2019-09-27 12:12] LABS: Alanine Aminotransferase 35 U/L (12-78); Albumin Level 3.6 gm/dl (3.4-5.0); Aspartate Aminotransferase 37 U/L (15-37); BUN Creatinine Ratio 15.2 (10-20); Blood Urea Nitrogen 16 mg/dl (7-18); Calcium 8.7 mg/dl (8.5-10.1); Carbon Dioxide 25 mmol/L (21-32); Chloride 107 mmol/L (98-107); Creatinine Clr Calc Pharmacy 70.4 ml/min; Est GFR (African American) 86.7; Est GFR (Non-African American) 74.8; Glucose 98 mg/dl (70-99); Magnesium 1.8 mg/dl (1.8-2.4); Potassium 3.8 mmol/L (3.5-5.1); Sodium 141 mmol/L (136-145)
[2019-09-27 12:23] LABS: Albumin Globulin Ratio 1.2 (0.9-2); Alkaline Phosphatase 63 U/L (45-117); Bilirubin,Total 0.7 mg/dl (0.2-1); Total Protein 6.6 gm/dl (6.4-8.2); Troponin I < 0.015 ng/ml (0-0.045)
[2019-09-27 12:55] LABS: Appearance Urine Clear (Clear); Bilirubin Urine Negative (Negative); Blood Urine Negative (Negative); Color Urine Yellow; Glucose Urine UA Negative (Negative); Ketones Urine Negative (Negative); Leukocyte Esterase Urine Negative (Negative); Nitrite Urine Negative (Negative); Protein Urine Negative (Negative); Specific Gravity Urine 1.005 (1.000-1.030); Urobilinogen Urine Negative (Negative)
--- NOTE | 2019-09-27 13:32 | History & Physical Report ---
Date of Service September 27, 2019 Assessment & Plan (1) SSS (sick sinus syndrome): This is a 68-year-old male with PMH of SSS s/p pacemaker placement 2008, HTN, dyslipidemia, history of AAA and other medical problems listed below who presents after near syncopal episode earlier today. -Near syncope earlier today. Due for dual chamber ppm generator change by Dr. Saldivar on October 29 -EKG with sinus rhythm with frequent ventricular-paced complexes -ED provider discussed with Dr. Jordan, who recommends monitoring on telemetry until able to have pacemaker replaced -Telemetry, external pacer pads at bedside, holding Toprol, NPO @ midnight (2) HTN (hypertension): Holding Toprol for now in setting of SSS (3) AAA (abdominal aortic aneurysm): Stable - abdominal aortic duplex in 01/2019 with evidence of a 3.3 centimeter abdominal aortic aneurysm. Repeat scheduled for Jan 2020 (4) Tobacco use disorder: Encouraged cessation DVT Ppx: SCDs Code status: FULL PCP: Kaushal Dispo: Admit to PCU. Plan to return home once medically stable. Patient seen in collaboration with Dr. Moscoso. Please see addendum. History of Present Illness Chief Complaint: Near syncope Primary Care Provider: NO PCP This is a 68-year-old male with PMH of SSS s/p pacemaker placement 2008, HTN, dyslipidemia, history of AAA and other medical problems listed below who presents after near syncopal episode earlier today. Patient recently evaluated by EP manager night Dr. Saldivar with recommendation for dual chamber ppm generator change scheduled for this coming September 28. Patient has been feeling fine and has been able to work in his yard without symptoms until this morning, when he felt near syncopal at rest with associated lightheadedness, tingling of hands and shortness of breath. Denies any syncopal event, visual changes or chest pain. Came to ED for further evaluation. Currently feels asymptomatic at rest. jewel bearing maker shows paced rhythm at 65 bpm. Denies any fever, chills, headache, confusion, chest pain, shortness of breath, nausea, vomiting, abdominal pain, dysuria, diarrhea or constipation. ED provider discussed with manager night on-call, Dr. Jordan, with plans for monitoring and pacemaker replacement during admission. Allergies Allergy/AdvReac Type Severity Reaction Status Date / Time Sulfa (Sulfonamide Allergy Intermediate HIVES Verified 09/27/19 11:20 Antibiotics) Home Medications Home Medications Medication Instructions Recorded Confirmed Type aspirin [Aspir-81] 81 mg PO QPM 12/22/17 09/27/19 History atorvastatin 40 mg PO QPM 12/22/17 09/27/19 History cyanocobalamin (vitamin B-12) 1,000 mcg PO HS 12/22/17 09/27/19 History magnesium oxide 400 mg PO HS 12/22/17 09/27/19 History metoprolol succinate 100 mg PO QAM 12/22/17 09/27/19 History Past Med/Surg History Medical History (Updated 09/27/19 @ 14:39 by Skylar Young PA-C) AAA (abdominal aortic aneurysm) stable - Abdominal aortic duplex report 01/2019: evidence of a 3.3 centimeter abdominal aortic aneurysm. Repeat 01/21 Dyslipidemia HTN (hypertension) Paroxysmal atrial fibrillation SSS (sick sinus syndrome) s/p PM placement in 2008 Tobacco use disorder Surgical History H/O hernia repair Pacemaker 2008 Family History (Updated 09/27/19 @ 14:24 by Skylar Young PA-C) Other Lung disease Social History (Updated 09/27/19 @ 14:25 by Skylar Young PA-C) Smoking Status: Current every day smoker Cigarettes Per Day: 10; Second Hand Exposure: No; Do You Dip or Chew Tobacco: No; Tobacco Cessation Education Requested by Patient: No Hx Alcohol Use: Yes Alcohol type: beer Alcohol Intake Frequency: 4 or More x per/Week Hx Substance Use: No Preferred Language: Armenian Communication Ability: Effective Forensic Specialist Required: No Beliefs That Will Affect Care: None Current Living Situation: Spouse Other Information That Helps Us Care for You: No Feels Safe at Home: Yes Safety Concerns: Feels Safe At This Time Review of Systems Review of Systems: At least ten systems reviewed and negative except as noted in the HPI. Physical Exam Physical Exam: General Appearance: WD/WN, vitals as above, NAD, sitting up in bed, pleasant, conversing easily Head: normocephalic, atraumatic Eyes: normal inspection, PERRL, conjunctivae normal, anicteric sclerae ENT: external ear and nose normal, oropharynx normal Neck: trachea midline, no thyromegaly, normal visual inspection Respiratory: normal respiratory effort, lungs clear to auscultation, no wheeze, rales, rhonchi Cardiovascular: regular rate, rhythm, no murmur appreciated, normal peripheral pulses. Vessels: no JVD Chest: normal inspection of chest Abdomen/GI: normal bowel sounds, soft, nontender, no hepatosplenomegaly Extremities/Musculoskeletal: no cyanosis or clubbing, extremities motor strength 5/5 Neurologic: PERRL, EOMI, accommodation nl, no face palsy, no dysarthria, CN's II-XI intact bilaterally and moves all extremities Psychiatric: A+Ox3, euthymic affect Skin: no rashes, normal color, warm/dry Results & Data Results & Data ([facility]) Vital Signs (Past 12 Hours) Vital Signs Temp Pulse Resp BP Pulse Ox 09/27/19 12:41 65 19 121/56 L 100 09/27/19 12:39 66 22 110/66 100 09/27/19 12:00 66 12 106/67 100 09/27/19 11:43 98 09/27/19 11:39 66 18 100/37 L 98 09/27/19 11:30 65 14 88/63 L 98 09/27/19 11:00 65 108/77 97 09/27/19 10:49 66 21 96/64 L 98 09/27/19 10:45 97 09/27/19 10:39 37.0 C 19 L 19 118/72 97 09/27/19 10:36 65 14 118/72 97 Laboratory Results Short CBC 09/27/19 Range/Units 10:45 WBC 4.80 (4.8-10.8) K/uL Hgb 14.5 (14.0-18.0) g/dL Hct 43.0 (42-52) % Plt Count 179 (130-400) K/uL BMP 09/27/19 10:45 Sodium 141 Potassium 3.8 Chloride 107 Carbon Dioxide 25 BUN 16 Creatinine 1.03 Glucose 98 Calcium 8.7 Cardiac Enzymes 09/27/19 Range/Units 10:45 Troponin I < 0.015 (0-0.045) ng/ml Liver Function 09/27/19 Range/Units 10:45 Total Bilirubin 0.7 (0.2-1) mg/dl AST 37 (15-37) U/L ALT 35 (12-78) U/L Alkaline Phosphatase 63 (45-117) U/L Albumin 3.6 (3.4-5.0) gm/dl Urine 09/27/19 Range/Units 12:30 Urine Color Yellow Urine Appearance Clear (Clear) Urine pH 8.0 H (4.5-7.5) Ur Specific [place] 1.005 (1.000-1.030) Urine Protein Negative (Negative) Urine Glucose (UA) Negative (Negative) Diagnostic Findings CXR: IMPRESSION: 1. Mild cardiac enlargement and cardiac pacemaker. There is no radiographic evidence of congestive failure. 2. No airspace consolidation or pleural effusion is identified. Supervising Physician Co-Signing Physician Notes Attending addendum: Patient seen and examined, care coordinated with Skylar Young PA-C This is 68-year-old male with history of sick sinus syndrome, status post pacemaker placement in Pacemaker found to be at the end of battery life, Pacemaker generator exchange scheduled for this September [address] Saldivar Admitted to ER with episode of dizzy spell lightheadedness, presyncope Physical exam: Brief General: No sign of distress, comfortable Heart regular S1-S2 no murmur gallop no lower extremity, Lungs: Clear to auscultate no wheeze or rales Abdomen: Soft nontender Extremity: No rash no deformity Neuro: No focal neurological deficit Assessment and plan: Presyncope: Possible secondary to cardiac arrhythmia/bradycardia in this setting of end of battery life of pacemaker Patient also took his morning dose of Toprol-XL 100 mg-felt dizzy lightheaded within half an hour of taking a.m. meds Admit to telemetry Beta-potrer kept on hold N.p.o. past midnight Cardiology consulted for pacemaker generator change Please refer to further documentation by Skylar Young PA-C for discussion of other chronic issues Gale Moscoso MD
[2019-09-27] MEDS ORDERED: NITROGLYCERIN SL 0.4 MG/TAB TAB SL PRN (14:40)
[2019-09-27] MEDS ORDERED: ACETAMINOPHEN 325 MG TAB PO PRN (14:40)
[2019-09-27 16:21] LABS: Hematocrit (blood only) 41.4 % (42-52); Hemoglobin 14.1 g/dL (14.0-18.0); Mean Corpuscular Hemoglobin 32.1 pg (25-34); Mean Corpuscular Hgb Conc 34.1 g/dL (32-36); Mean Corpuscular Volume 94.3 fL (80-100); Platelet Count 170 K/uL (130-400); RDW Coefficient of Variation 13.3 % (11.5-14.5); RDW Standard Deviation 46.2 fL (36.4-46.3); Red Blood Count 4.39 M/uL (4.7-6.1); White Blood Count 6.05 K/uL (4.8-10.8)
[2019-09-27] MEDS: ATORVASTATIN 40 MG TAB PO SCH (20:45)
[2019-09-27] MEDS: MAGNESIUM OXIDE 400 MG TAB PO SCH (20:45)
[2019-09-27] MEDS: CYANOCOBALAMIN 500 MCG TABLET (VITAMIN B-12) PO SCH (20:45)
[2019-09-28 07:58] LABS: BUN Creatinine Ratio 13.5 (10-20); Calcium 8.1 mg/dl (8.5-10.1); Creatinine Clr Calc Pharmacy 75.5 ml/min; Est GFR (African American) 94.4; Est GFR (Non-African American) 81.5; Potassium 4.8 mmol/L (3.5-5.1)
--- NOTE | 2019-09-28 09:32 | Cardiology Consultation ---
Date of Consultation September 28, 2019 Assessment & Plan (1) Near syncope: (2) Dizziness: (3) Pacemaker complications: (4) Paroxysmal atrial fibrillation: (5) Tachy-tien syndrome: The patient's symptoms may have been situational and some anxiety due to his awareness of his pacemaker. He does have sinus rhythm and it certainly could be that when he took his beta-porter because of the switch to VVI pacing this may have contributed to his dizziness. His Eliquis and beta-porter have been held. We will continue to have him n.p.o. and hopefully his pacemaker can be completed today, if not then tomorrow. History of Present Illness Attending Physician: Gale Moscoso MD History of Present Illness This is a 68-year-old male patient who was scheduled to have an elective pacemaker upgrade tomorrow. 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 Yesterday morning he took his beta-porter and within a few minutes after that he became weak and dizzy. He did not pass out. He was concerned that his pacemaker was not functioning right and came to the emergency department where he was admitted. He has had an uneventful night. It appears that he is mostly VVI pacing which may be a safety mode for a dual-chamber pacemaker. Allergies Allergy/AdvReac Type Severity Reaction Status Date / Time Sulfa (Sulfonamide Allergy Intermediate HIVES Verified 09/27/19 11:20 Antibiotics) Home Medications Home Medications Medication Instructions Recorded Confirmed Type aspirin [Aspir-81] 81 mg PO QPM 12/22/17 09/27/19 History atorvastatin 40 mg PO QPM 12/22/17 09/27/19 History cyanocobalamin (vitamin B-12) 1,000 mcg PO HS 12/22/17 09/27/19 History magnesium oxide 400 mg PO HS 12/22/17 09/27/19 History metoprolol succinate 100 mg PO QAM 12/22/17 09/27/19 History Patient History Medical History AAA (abdominal aortic aneurysm) stable - Abdominal aortic duplex report 01/2019: evidence of a 3.3 centimeter abdominal aortic aneurysm. Repeat 01/21 Dyslipidemia HTN (hypertension) Paroxysmal atrial fibrillation SSS (sick sinus syndrome) s/p PM placement in 2008 Tobacco use disorder Surgical History H/O hernia repair Pacemaker 2009 Family History Other Lung disease Social History Smoking Status: Current every day smoker Cigarettes Per Day: 10; Second Hand Exposure: No; Do You Dip or Chew Tobacco: No; Tobacco Cessation Education Requested by Patient: No Hx Alcohol Use: Yes Alcohol type: beer Alcohol Intake Frequency: 4 or More x per/Week Hx Substance Use: No Preferred Language: Palestinian Communication Ability: Effective Manager Domestic Required: No Beliefs That Will Affect Care: None Current Living Situation: Spouse Other Information That Helps Us Care for You: No Feels Safe at Home: Yes Safety Concerns: Feels Safe At This Time Review of Systems Review of Systems: All systems reviewed & are unremarkable except as noted in HPI & below Nothing additional to add Physical Exam Physical Exam: General: no acute distress and stated age Head: normocephalic, no masses, lesions, tenderness or abnormalities Eyes: conjunctiva are pink and non-injected, sclera clear Neck: supple, no adenopathy, no bruits, normal jugular venous pulse, no hepatojugular reflux Chest: normal shape and normal respiratory effort Lungs: clear to auscultation and percussion Cardiac Exam: - regular rate & rhythm, no murmurs gallops or rubs - normal S1, normal S2 Pulses: 2(+) throughout Abdomen: abdomen soft, non-tender, no abnormal masses and no hepatosplenomegaly Musculoskeletal: no gait disturbance, no joint inflammation, no deforming arthritis Extremities: no edema and no cyanosis Neuro: grossly normal exam Results & Data ([facility]) Vital Signs (Past 12 Hours) Vital Signs Temp Pulse Pulse Resp BP Pulse Ox 09/28/19 07:56 36.8 C 74 16 120/60 97 09/28/19 07:17 65 09/28/19 05:02 36.5 C 65 18 100/60 99 09/28/19 00:37 36.4 C L 69 18 83/47 L 91 09/27/19 21:33 70 119/56 L Laboratory Results Laboratory Results - last 24 hr 09/27/19 09/27/19 09/27/19 10:45 10:45 12:30 WBC 4.80 RBC 4.58 L Hgb 14.5 Hct 43.0 MCV 93.9 MCH 31.7 MCHC 33.7 RDW Std Deviation 46.5 H RDW Coeff of Kj 13.4 Plt Count 179 MPV 12.2 H Immature Gran % (Auto) 0.0 Neut % (Auto) 36.9 Lymph % (Auto) 48.1 Vernon % (Auto) 12.5 Eos % (Auto) 2.3 Baso % (Auto) 0.2 Neut # (Auto) 1.77 Lymph # (Auto) 2.31 Vernon # (Auto) 0.60 H Eos # (Auto) 0.11 Baso # (Auto) 0.01 Immature Gran # (Auto) 0.00 Sodium 141 Potassium 3.8 Chloride 107 Carbon Dioxide 25 Anion Gap 9.0 BUN 16 Creatinine 1.03 Est Cr Clr Drug Dosing 70.4 Est GFR ( Amer) 86.7 Est GFR (Non-Af Amer) 74.8 BUN/Creatinine Ratio 15.2 Glucose 98 Calcium 8.7 Magnesium 1.8 Total Bilirubin 0.7 AST 37 ALT 35 Alkaline Phosphatase 63 Troponin I < 0.015 Total Protein 6.6 Albumin 3.6 Globulin 3.0 Albumin/Globulin Ratio 1.2 TSH 1.290 Urine Color Yellow Urine Appearance Clear Urine pH 8.0 H Ur Specific [place] 1.005 Urine Protein Negative Urine Glucose (UA) Negative Urine Ketones Negative Urine Blood Negative Urine Nitrite Negative Urine Bilirubin Negative Urine Urobilinogen Negative Ur Leukocyte Esterase Negative 09/27/19 09/28/19 15:32 07:05 WBC 6.05 RBC 4.39 L Hgb 14.1 Hct 41.4 L MCV 94.3 MCH 32.1 MCHC 34.1 RDW Std Deviation 46.2 RDW Coeff of Kj 13.3 Plt Count 170 MPV 12.0 H Immature Gran % (Auto) Neut % (Auto) Lymph % (Auto) Vernon % (Auto) Eos % (Auto) Baso % (Auto) Neut # (Auto) Lymph # (Auto) Vernon # (Auto) Eos # (Auto) Baso # (Auto) Immature Gran # (Auto) Sodium 143 Potassium 4.8 D Chloride 112 H Carbon Dioxide 28 Anion Gap 3.0 BUN 13 Creatinine 0.96 Est Cr Clr Drug Dosing 75.5 Est GFR ( Amer) 94.4 Est GFR (Non-Af Amer) 81.5 BUN/Creatinine Ratio 13.5 Glucose 103 H Calcium 8.1 L Magnesium Total Bilirubin AST ALT Alkaline Phosphatase Troponin I Total Protein Albumin Globulin Albumin/Globulin Ratio TSH Urine Color Urine Appearance Urine pH Ur Specific [place] Urine Protein Urine Glucose (UA) Urine Ketones Urine Blood Urine Nitrite Urine Bilirubin Urine Urobilinogen Ur Leukocyte Esterase Medications Administered Current Inpatient Medications Acetaminophen (Tylenol) 650 mg PO Q4H PRN PRN Reason: Pain or Fever Stop: 10/27/19 14:39 Atorvastatin Calcium (Lipitor) 40 mg PO QPM [facility] Stop: 10/27/19 20:59 Last Admin: 09/27/19 20:45 Dose: 40 mg Documented by: Cyanocobalamin (Vitamin B-12) 1,000 mcg PO [facility] Stop: 10/27/19 20:59 Last Admin: 09/27/19 20:45 Dose: 1,000 mcg Documented by: Magnesium Oxide (Mag-Ox) 400 mg PO [facility] Stop: 10/27/19 20:59 Last Admin: 09/27/19 20:45 Dose: 400 mg Documented by: Nitroglycerin (Nitrostat) 0.4 mg SL UD PRN PRN Reason: Chest Pain Stop: 10/27/19 14:39 (1) Pacemaker complications Encounter type: initial encounter Qualified Code(s): T82.9XXA - Unspecified complication of cardiac and vascular prosthetic device, implant and graft, initial encounter
--- NOTE | 2019-09-28 13:55 | Electrocardiogram Report ---
Test Reason : Blood Pressure : / mmHG Vent. Rate : 067 BPM Atrial Rate : 067 BPM P-R Int : 164 ms QRS Dur : 108 ms QT Int : 396 ms P-R-T Axes : 080 066 041 degrees QTc Int : 418 ms Sinus rhythm with frequent ventricular-paced complexes Abnormal ECG When compared with ECG of 26-OCT-2016 07:29, Electronic ventricular pacemaker has replaced Electronic atrial pacemaker Confirmed by Trev George ([id number]) on 09/28/2019 1:55:14 PM Referred By: REFERRED SELF Confirmed By:Trev George
--- NOTE | 2019-09-28 16:23 | Hospitalist Progress Note ---
Date of Service September 28, 2019 Assessment & Plan (1) SSS (sick sinus syndrome): This is a 68-year-old male with PMH of SSS s/p pacemaker placement 2008, HTN, dyslipidemia, history of AAA and other medical problems listed below who presents after near syncopal episode Patient's dual-chamber pacemaker is at end of battery life Scheduled for generator exchange by Dr. Saldivar on Saturday, October 29 Patient presents with bradycardia presyncope after taking a.m. metoprolol -Appreciate input from cardiology Dr. Jordan -EP senior center director updated, pacemaker generator and new generator placement tomorrow -Continue Monitor on telemetry -Hold beta-porter/Ordered for n.p.o. past midnight (2) HTN (hypertension): Holding Toprol for now in setting of SSS (3) AAA (abdominal aortic aneurysm): Stable - abdominal aortic duplex in 01/2019 with evidence of a 3.3 centimeter abdominal aortic aneurysm. Repeat scheduled for Jan 2020 (4) Tobacco use disorder: Encouraged cessation DVT Ppx: SCDs Code status: FULL PCP: Dr Gail Easley Dispo: Possible discharge home tomorrow after pacemaker generator change Admission and Anticipated Discharge Date Admission Date: September 27, 2019 Subjective No complaint of chest pain or shortness of breath No dizzy spell or lightheadedness No fever or chills Heart rate remains stable at 60s on telemetry Physical Exam Constitutional: WD/WN, vitals as above Eyes: PERRL, conjunctivae normal, anicteric sclerae ENMT: external ear and nose normal, oropharynx normal Neck: trachea midline, no thyromegaly Respiratory: normal respiratory effort, lungs clear to auscultation Cardiovascular: RRR, no murmur, no edema Gastrointestinal (Abdomen): normal bowel sounds, soft, nontender, no hepatosplenomegaly Musculoskeletal: no cyanosis or clubbing, extremities motor strength 5/5 Skin: no rashes, warm and dry Neurologic: PERRL, EOMI, accommodation nl, no face palsy, no dysarthria Psychiatric: A+Ox3, euthymic affect Results & Data Results & Data ([facility]) Vital Signs (Past 12 Hours) Vital Signs Temp Pulse Pulse Resp BP Pulse Ox 09/28/19 15:24 36.7 C 66 18 91/58 L 98 09/28/19 14:53 66 09/28/19 12:02 36.6 C 83 18 129/61 98 09/28/19 07:56 36.8 C 74 16 120/60 97 09/28/19 07:17 65 09/28/19 05:02 36.5 C 65 18 100/60 99
[2019-09-28] MEDS: ATORVASTATIN 40 MG TAB PO SCH (21:03)
[2019-09-28] MEDS: MAGNESIUM OXIDE 400 MG TAB PO SCH (21:03)
[2019-09-28] MEDS: CYANOCOBALAMIN 500 MCG TABLET (VITAMIN B-12) PO SCH (21:03)
[2019-09-29] MEDS ORDERED: LIDOCAINE HCL 1% 20 ML VIAL ONE (07:46)
[2019-09-29] MEDS ORDERED: BACITRACIN INJ 50,000 UNIT VIAL ONE (07:46)
[2019-09-29] MEDS ORDERED: BUPIVACAINE 0.25% 30 ML VIAL ONE (07:46)
--- NOTE | 2019-09-29 08:24 | History & Physical Bridge Note ---
Date of Service September 29, 2019 History & Physical Bridge Note I have examined the patient, reviewed the History & Physical and in the interval since the performance of the History & Physical I have noted the following changes of clinical significance: pt for pacemaker battery generator change
--- NOTE | 2019-09-29 08:25 | Pre Anesthesia Assessment ---
Date of Service September 29, 2019 Pre Sedation Assessment Vital Signs Temp Pulse Pulse Resp BP BP Pulse Ox 09/29/19 07:58 36.5 C 64 22 108/73 100 09/29/19 07:03 65 09/29/19 04:08 36.6 C 66 18 99/65 L 97 09/28/19 23:59 36.5 C 64 18 120/68 98 09/28/19 19:45 36.7 C 62 18 85/51 L 98 09/28/19 15:24 36.7 C 66 18 91/58 L 98 09/28/19 14:53 66 09/28/19 12:02 36.6 C 83 18 129/61 98 Cardiovascular + regular rhythm Respiratory normal respiratory effort, lungs clear to auscultation Pre-Sedation Airway Assessment Smoking Status: Current every day smoker Hx Sleep Apnea: No Thyromental Distance: < 3.5 Finger Breadths Oral Cavity: + Dental Abnormalities ASA: ASA3 NPO Status Date of Last Intake of Fluids: 09/28/19 Date of Last Intake of Solid Food: 09/28/19 Procedure Planning Contraindications for Sedation: none Current Medications Reviewed: Yes Notes The planned sedation has been discussed with the patient. Informed Consent was obtained. I have identified the patient, determined the appropriateness of sedation and have assessed the patient immediately prior to the procedure. All medicine(s) and interventions are by my order.
[2019-09-29] MEDS ORDERED: MIDAZOLAM HCL 5 MG/ML 1 ML VIAL ONE (08:49)
[2019-09-29] MEDS ORDERED: fentaNYL citrate 100 MCG/2 ML VIAL ONE (08:49)
[2019-09-29] MEDS ORDERED: CEFAZOLIN 250 MG/ML 1 GM VIAL ONE (08:49)
--- NOTE | 2019-09-29 09:32 | Post Anesthesia Assessment ---
Date of Service September 29, 2019 Post Sedation Assessment Vital Signs Temp Pulse Pulse Resp BP BP Pulse Ox 09/29/19 07:58 36.5 C 64 22 108/73 100 09/29/19 07:03 65 09/29/19 04:08 36.6 C 66 18 99/65 L 97 09/28/19 23:59 36.5 C 64 18 120/68 98 09/28/19 19:45 36.7 C 62 18 85/51 L 98 09/28/19 15:24 36.7 C 66 18 91/58 L 98 09/28/19 14:53 66 09/28/19 12:02 36.6 C 83 18 129/61 98 Recovery Score Activity: Moves 4 extremities Respiration: Deep Breath/Cough Circulation: +/-20% PreAnes Value Consciousness: Fully Awake Oxygen Saturation: > 92% On Room Air Discharge Sedation Level of Care: Fast Track Phase II Post Sedation Plan On clinical assessment, the patient appears to have tolerated the sedation without complications. Patient is recovering as anticipated. Patient will continue to be monitored by nursing and may be discharged when sedation discharge criteria are met per below protocol. Upon Completions of procedure up to 15 minutes continue every 5 minute vital signs and the P.A.R. score; then discharge to a Phase I or Fast Track to Phase II per the following guidelines: * Discharge Patient to appropriate Phase II area if PAR is 8 or greater or return to pre- procedure baseline. The post - procedure orders will be as directed. * If PAR score is less than 8 or not return to pre-procedure baseline then patient will follow Phase I monitoring till PAR is reached for Phase II. The Phase I may be done in procedure room or may call to secure a Phase I area. * If naloxone or flumazenil are used for reversal, hold in Phase I for co ntinued monitoring from when last reversal dose was given for a minimum of 60 minutes or longer pending the nurse and/or physician discretion of patient condition before discharge to Phase II. Please call the Sedation Physician to re-evaluate and complete post-note for discharge to Phase II area. Do NOT discharge from procedure sedation or Phase 1 until post- sedation evaluation note is complete by procedure /sedation MD Sedation Discharge Instructions to be given to the patient at discharge to home.
--- NOTE | 2019-09-29 09:32 | Operative Report ---
Post Operative Report Pre & Post Diagnosis PPM at [facility] and SSS Operation Date: 09/29/19 08:30 <No data on this case meets the specified criteria> I identified the patient and participated in the time-out.: Yes Procedure Operation Date: 09/29/19 08:30 Actual Procedures p Pacer Gen Change Dual - Lyubov Saldivar DO Surgeon Lyubov Saldivar, DO [employer] none Estimated Blood Loss 5 Findings Consistent with Post-Op Diagnosis Specimens none Description of Procedure see official report I attest to the content of the Intraoperative Record and any orders documented therein. Any exceptions are noted below.
--- NOTE | 2019-09-29 11:29 | Discharge Summary ---
Date of Service September 29, 2019 Admission HPI Per Admitting Provider This is a 68-year-old male with PMH of SSS s/p pacemaker placement 2008, HTN, dyslipidemia, history of AAA and other medical problems listed below who presents after near syncopal episode earlier today. Patient recently evaluated by EP block engraver Dr. Saldivar with recommendation for dual chamber ppm generator change scheduled for this coming September 28. Patient has been feeling fine and has been able to work in his yard without symptoms until this morning, when he felt near syncopal at rest with associated lightheadedness, tingling of hands and shortness of breath. Denies any syncopal event, visual ch anges or chest pain. Came to ED for further evaluation. Currently feels asymptomatic at rest. child nutrition assistant shows paced rhythm at 65 bpm. Denies any fever, chills, headache, confusion, chest pain, shortness of breath, nausea, vomiting, abdominal pain, dysuria, diarrhea or constipation. ED provider discussed with block engraver on-call, Dr. Jordan, with plans for monitoring and pacemaker replacement during admission. Principal Diagnosis Syncope/pacemaker battery replacement Discharge Exam Constitutional WD/WN, vitals as above Eyes PERRL, conjunctivae normal, anicteric sclerae ENMT external ear and nose normal, oropharynx normal Neck trachea midline, no thyromegaly Respiratory normal respiratory effort, lungs clear to auscultation Cardiovascular RRR, no murmur, no edema Gastrointestinal (Abdomen) normal bowel sounds, soft, nontender, no hepatosplenomegaly Musculoskeletal no cyanosis or clubbing, extremities motor strength 5/5 Skin no rashes, warm and dry Neurologic PERRL, EOMI, accommodation nl, no face palsy, no dysarthria Psychiatric A+Ox3, euthymic affect Discharge Data Allergies Allergy/AdvReac Type Severity Reaction Status Date / Time Sulfa (Sulfonamide Allergy Intermediate HIVES Verified 09/27/19 11:20 Antibiotics) Consultations 09/27/19 13:19 ED Decision to Admit Stat 09/27/19 13:35 Consult Cardiology Routine Procedures Performed Operation Date: 09/29/19 08:30 Actual Procedures p Pacer Gen Change Dual - Lyubov Saldivar, Hospital Course (1) SSS (sick sinus syndrome): This is a 68-year-old male with PMH of SSS s/p pacemaker placement 2009, HTN, dyslipidemia, history of AAA and other medical problems listed below who presents after near syncopal episode Patient's dual-chamber pacemaker is at end of battery life Patient presents with bradycardia presyncope after taking a.m. metoprolol -Appreciate input from cardiology Dr. Jordan Status post dual-chamber pacemaker generator placement today Patient tolerated procedure well Updated by EP block engraver -PatientWill to be discharged home today Beta-porter resumed on discharge (2) HTN (hypertension): Holding Toprol for now in setting of SSS (3) AAA (abdominal aortic aneurysm): Stable - abdominal aortic duplex in 01/2019 with evidence of a 3.3 centimeter abdominal aortic aneurysm. Repeat scheduled for Jan 2020 (4) Tobacco use disorder: Encouraged cessation DVT Ppx: SCDs Code status: FULL PCP: Dr Gail Easley Dispo:Stable to be discharged home today Total Time Total Time Spent Total Time Spent (In Minutes): 35mins Total Time Includes: Examination of the Patient, Discharge Planning, Medication Reconciliation and Communication With Other Providers Discharge Plan Discharge Items Patient Disposition: Home - Self-Care Reason For Visit: SYNCOPE, PACEMAKER BATTERY REPLACEMENT Discharge Diagnosis: Pacemaker generator change Episode of syncope: Resolved Condition on Discharge: Good Activity: Resume your previous activity Lifting: None Bathing: Keep incision dry Bathing Comment: keep incision dry and dressing on until your wound check next week Driving/Machine Use: Resume 1 day after discharge Non-emergency contact: Primary Care Provider and Car Driver Call non-emergency contact if: you have any medication questions Follow-up/Referrals: Ramon Walter DO [Car Driver] - Gail Easley MD [Physician] - Diet: Heart Healthy Add Attending Provider Instructions: device and wound check next week as scheduled in [facility] ACTIVITY RECOMMENDATIONS: * Do not raise affected arm over head for 2 weeks. SPECIAL CARE INSTRUCTIONS: * If bleeding occurs, apply direct pressure to area for 5 minutes. * Call your doctor if you have severe pain, fever, drainage or bleeding at site. * Keep dressing on and dry for 48 hours then remove. * Keep any scheduled doctor's appointment. * Implant Card - hand held device with website information given. SKIN IRRITATION: * You may experience some redness and/or swelling in the area where radiation was administered. If any skin irritation occurs, please contact your family physician. FOLLOW UP VISIT: Keep any scheduled doctor appointments. Pending Studies at Discharge: No Stand-Alone Forms: My [facility], Smoking Cessation Medications and DC Order Prescriptions: Continued atorvastatin 40 mg Tablet 40 mg PO QPM RF: 0 metoprolol succinate 100 mg Tablet Extended Release 24 Hr 100 mg PO QAM RF: 0 aspirin [Aspir-81] 81 mg Tablet,Delayed Release (Dr/Ec) 81 mg PO QPM RF: 0 magnesium oxide 400 mg Capsule 400 mg PO HS RF: 0 cyanocobalamin (vitamin B-12) 1,000 mcg Capsule 1,000 mcg PO HS RF: 0 Discharge Orders: Discharge Order (Routine); Ordered 09/29/19 Ordered By: Gale Tipton/Other Patient Handouts: Discharge Instructions for Pacemaker Implantation Admission Data Admit Date/Time: 09/27/19 13:32 Attending Provider: Gale Moscoso Admit Provider: Gale Moscoso Primary Care Provider: PCP,NO Other Providers: Gale Moscoso ; Mikael Catalan ; Josep Arriola ; Oneil Ashton ; Ramon Walter ; Selwyn Jordan. ; Emigdio Delaney ; Nazia Montanez ; Lyubov Saldivar ; Osiel Richardson Other Interventions: Discharge Summary Assessment (RN) Last Done: 09/29/19 10:10
[2019-09-29 11:44] VITALS: O2SAT 99
[2019-09-29 11:52] VITALS: BP 110/72; PULSE 60; TEMP 97.5
--- NOTE | 2019-10-01 09:12 | Operative Report (OR) ---
DATE OF OPERATION: 09/29/2019 PREOPERATIVE DIAGNOSIS: Sick sinus syndrome and pacemaker TERENCE. POSTOPERATIVE DIAGNOSIS: Same. PROCEDURE: Dual chamber rate responsive permanent pacemaker generator change. SURGEON: Lyubov Saldivar DO. ASSISTANTS: None. ANESTHESIA: Monitored conscious sedation administered under my supervision by Tessie Nam. Start time 8:57, end time 9:28. Total of 4 mg of Versed, 100 mcg fentanyl. INTRAVENOUS FLUIDS: 16 mL. ANTIBIOTICS: 1 gram of Ancef. BLOOD LOSS: 5 mL URINE OUTPUT: Not applicable. SPECIMENS: None. FINDINGS: See below. DRAINS: None. INDICATIONS: This is a 68-year-old gentleman with past medical history for sick sinus syndrome, where he underwent a pacemaker in 2008, paroxysmal atrial fibrillation. As per medical chart he is on high dose metoprolol but he is not on any anticoagulation, so I am not sure of diagnosis, hyperlipidemia, chronic tobacco use, and hypertension. The patient was found to have his device hit TERENCE back in July and was recommended a generator change. Prior he actually was admitted to [facility] a few days earlier due to dizziness and so he remained in the hospital until his scheduled generator change. CONSENT: Consent was obtained prior to the patient going into electrophysiology lab. The patient understood risks, benefits and alternative procedure. Risks include but not limited to sudden cardiac , cardiac arrhythmias, cerebrovascular accident, myocardial infarction, bleeding and infection. The patient understood these risks and agreed with procedure as planned. Informed consent was obtained. DESCRIPTION OF THE PROCEDURE: The patient was brought into the electrophysiology lab in a fasting state. After continuous cardiac monitoring a timeout was performed to ensure patient identity and procedure itself. The patient received prophylactic antibiotics prior to incision. He was prepped and draped over the left infraclavicular space in normal surgical standard fashion. He received monitored conscious sedation throughout the procedure for patient's comfort level. Novinger precautions were taken. 10 mL of 1% lidocaine, bupivacaine mixture were given over the prior surgical incision. Incision was made over prior surgical incision. Blunt dissection performed down to the pulse generator. The pulse generator was removed from the pocket. The leads were tested intraoperatively, see below for results. The pocket was disrupted inferiorly and caudally to allow for new blood flow. The pocket was then flushed with copious amounts of bacitracin saline wash and inspected for hemostasis. The leads were attached to the new pulse generator making sure that the pins were in appropriate position, passed set screw and set screws were all tightened. Pulse generator was then placed in the pocket, making sure that the leads were lying flat beneath the device. The incision was then closed in 3-layer fashion with 2-0 Vicryl interrupted suture followed by 3-0 Vicryl interrupted suture followed by 4-0 Monocryl running stitch and Dermabond was applied followed then by Telfa and micropore dressing. EQUIPMENT: 1. Explanted generator is a [employer] Sandi GARCIA [id number], serial #[id number], implanted 10/09/2008, [employer] on 07/21/2019. 2. The new pulse generator is a [employer] Claude XT DR NAEEM [place] [id number], serial number [id number]. 3. Right atrial lead 4592-45 cm, serial [id number], implanted 10/09/2008. 4. Right ventricular lead, 4092-52 cm, serial [id number], implanted 10/09/2008. INTRAOPERATIVE TESTIN. Right atrial lead: P-wave 3 millivolts, impedance 454 ohms, threshold 0.6 volts at 0.4 milliseconds. 2. Right ventricular lead: R-wave 7.8 millivolts, impedance 437 ohms, threshold 1.2 volts at 0.4 milliseconds. Final Measurements through the device:. 1. Right atrial lead: P waves 2.6 millivolts, impedance 513 ohms, threshold 0.7 volts at 0.4 milliseconds. 2. Right ventricular lead: R-wave 8.4 millivolts, impedance 437 ohms, threshold 1.2 volts at 0.4 milliseconds. FINAL PARAMETERS: MVP/R 60/130, right atrial amplitude 1.5 volts, pulse width 0.4 milliseconds, sensitivity 0.3 millivolts. Right ventricular amplitude 2.5 volts, pulse width 0.4 milliseconds, sensitivity 1.2 millivolts. IMPRESSION: Successful dual chamber rate responsive permanent pacemaker generator change secondary to sick sinus syndrome and device at elective replacement indicator. PLAN: Monitor patient post-sedation. He can then go home. He is to leave the dressing on and dry until his wound check next week. I attest to the content of the Intraoperative Record and any orders documented therein. Any exceptions are noted below. MTDD
== END 2019-09-29 12:16 | disposition home or self-care (01) | DRG 310 ==
LOC: ED 10:28 → 2S 13:32

== ENCOUNTER 2023-06-11 18:03 | Observation (INO) ==
--- NOTE | 2023-06-11 18:11 | ED Triage Note ---
Date of Service June 11, 2023 Provider in Triage Author: Bella Montanez History of Present Illness This patient was briefly evaluated while in triage. An abbreviated physical exam was performed. This patient is a 72-year-old Male who presents to the ED for evaluation of TIA symptoms. He states that he feels lightheaded and confused. [place] 2:00 pm maybe. However, he can't really remember a lot of things from today. Earlier he could not remember what year or day of the week it was. However, he has gotten better per his . She feels that he is about 60-65% better than when symptoms first started. The patient states that he is feeling better right now, but still feels slightly confused and lightheaded. Thinks he might have just been dehydrated, but is also concerned about a stroke. Has had similar symptoms 4 previous times that were diagnosed as dehydration, but states that he never had a stroke work up that he knows of. On a baby ASA, but no other blood thinners. Physical Exam GENERAL: Non-toxic and in no acute distress. HEENT: Pupils equal. No obvious scleral icterus. HEART: Regular rate and rhythm. LUNGS: Clear to auscultation. No accessory muscle use. NEURO: Alert and oriented on quick Mini-Mental status exam in triage. The patient was able to answer questions appropriately in triage. No facial droop. No slurring of his words. Full range of motion of the bilateral upper and lower extremities. Strength 5/5 and equal in the bilateral upper and lower extremities. Normal sensation to light and sharp touch of the bilateral upper and lower extremities. No obvious neurological deficits on quick neuro exam. The patient was not felt to meet stroke alert criteria from triage due to the time of symptom onset, improvement of his symptoms, and no focal neurologic deficits on quick exam in triage. Initial orders for labs and / or imaging were placed and patient was taken directly back to a room. I sent a message via [employer] text to the ER doctors on shift alerting them to the patient and his symptoms. Please see further documentation for the full ED course. MDM / Impression Impression Impression: Stroke-like symptoms
[2023-06-11 18:41] LABS: Basophils # (auto) 0.06 K/uL (0.00-0.20); Basophils % (auto) 0.6 %; Eosinophils # (auto) 0.09 K/uL (0.00-0.50); Eosinophils % (auto) 0.9 %; Hematocrit (blood only) 43.9 % (42.0-52.0); Hemoglobin 14.8 g/dl (14.0-18.0); Immature Granulocytes # (auto) 0.03 K/uL (0.01-0.20); Immature Granulocytes % (auto) 0.3 %; Lymphocytes # (auto) 2.33 K/uL (1.20-3.40); Lymphocytes % (auto) 22.1 %; Mean Corpuscular Hemoglobin 31.8 pg (25.0-34.0); Mean Corpuscular Hgb Conc 33.7 g/dL (32.0-36.0); Mean Corpuscular Volume 94.4 fL (80.0-100.0); Mean Platelet Volume 11.1 fL (9.4-12.4); Monocytes # (auto) 0.87 K/uL (0.11-0.59); Monocytes % (auto) 8.3 %; Neutrophils # (auto) 7.16 K/uL (1.40-6.50); Neutrophils % (auto) 67.8 %; Platelet Count 212 K/uL (130-400); RDW Coefficient of Variation 12.5 % (11.5-14.5); RDW Standard Deviation 43.5 fL (36.4-46.3); Red Blood Count 4.65 M/uL (4.70-6.10); White Blood Count 10.54 K/ul (4.8-10.8)
[2023-06-11 18:43] LABS: iSTAT Creatinine 1.1 mg/dl (0.6-1.3); iSTAT Hemoglobin 15.3 g/dl (14.0-18.0); iSTAT Ionized Calcium 1.25 mmol/l (1.12-1.32)
[2023-06-11 18:54] LABS: Albumin Globulin Ratio 1.7 (0.9-2); Albumin Level 4.5 gm/dl (3.4-5.0); Bilirubin,Total 0.6 mg/dl (0.2-1.0); Calcium 9.9 mg/dl (8.6-10.3); Creatinine Clr Calc Pharmacy 69.2 ml/min; Est GFR (African American) 87.4 ml/min; Est GFR (Non-African American) 75.4 ml/min; Globulin 2.7 gm/dl (2.5-4.0); Magnesium 1.9 mg/dl (1.7-2.4); Total Protein 7.2 gm/dl (6.0-8.3)
[2023-06-11 19:01] LABS: Troponin I High Sensitivity 4.5 pg/ml (0-20)
--- NOTE | 2023-06-11 19:01 | XRay Report ---
XR chest 1V portable CLINICAL HISTORY: dizziness, confusion TECHNIQUE: Single frontal radiograph of the chest was obtained. Comparison: Comparison is made to chest radiograph 09/27/2019 FINDINGS: An implanted pacemaker is seen. Calcified aortic knob is seen. The lungs are clear. No evidence of pl eural effusion or pneumothorax. IMPRESSION: No acute chest disease. ACT 112: Negative or not required by law. Electronically signed by: Oren Serrano M.D. 06/11/2023 7:00 PM
[2023-06-11 19:03] LABS: Partial Thromboplastin Ratio 1.1; Partial Thromboplastin Time 30 Seconds (21-31)
[2023-06-11 19:10] LABS: Thyroid Stimulating Hormone 1.405 uIu/ml (0.300-4.500)
--- NOTE | 2023-06-11 19:30 | Emergency Department Note ---
Impression & Plan Stroke-like symptoms ED Provider Note HISTORY OF PRESENT ILLNESS: Patient is a 72-year-old male presenting with confusion. Patient reports that around 1400 today [place] he suddenly became very confused and had difficulties getting out words. at bedside provides more history. Reports that the friends he was golfing with states that the patient was not alert or oriented and was unable to answer questions appropriately. That episode lasted for about 30 minutes. He then came home and was feeling slightly better and laid down for a nap but then woke up and alerted his that he was still confused and he wanted to come to the ER. On arrival to the ER, the patient reports that he still feels like it is difficult to get his words out. He states if he has trouble finding the words he wants to say. He denies any recent head injuries or chiropractic manipulation of his neck. He denies any history of CVA. He is on a baby aspirin daily but no other anticoagulation or antiplatelet therapy. Denies any chest pain or shortness of breath. No recent fevers. Denies any numbness, tingling or weakness in extremities. Denies any difficulty swallowing or slurred speech. ROS: as above PHYSICAL EXAM: Constitutional: Patient appears in no acute distress. HENT: Head: Normocephalic and atraumatic. Eyes: EOMI, PERRL Mouth/Throat: Mucous membranes moist. Neck: Trachea midline. Neck supple. Cardiovascular: Paced rhythm. No murmurs, rubs or gallops. Intact distal pulses. Pulmonary/Chest: No respiratory distress. Breath sounds clear and equal bilaterally. No wheezes or rales. Abdominal: Abdomen soft, no tenderness, rebound or guarding. Musculoskeletal: No edema, tenderness or deformity noted. Skin: Warm and dry. No rash, erythema, pallor or cyanosis Psychiatric: Appropriate mood and affect for situation. Neurological: Alert and keenly responsive. Facies symmetric. Able to raise eyebrows, close eyes, smile, puff mouth, stick out tongue, move tongue left and right and raise palate symmetrically. Able to shrug shoulders. PERRLA. SILT to forehead below eye and at jawline. Can hear soft noise bilaterally. Good finger to nose. Strength 5/5 in bilateral upper and lower extremities. SILT throughout bilateral upper and lower extremities. NIHSS 0. MDM: - Vitals signs showed hypertension - History obtained via patient. History as above. - Chronic conditions affecting care: sick sinus syndrome (s/p pacemaker); AAA; paroxysmal Afib; HTN; HLD - Differential diagnoses include, but are not limited to: CVA; intracranial hemorrhage; dysrhythmia; electrolyte abnormality; dehydration; ACS - Order placed for continuous cardiac monitoring. At this time, monitor showed rate of 75 bpm with paced rhythm, per my interpretation. - External medical records reviewed. Discharge summary dated 09/29/2019 was reviewed. Patient was admitted at that time for syncopal episode. - EKG interpreted by myself showed atrial paced rhythm. Rate 72 bpm - Laboratory workup interpreted by myself showed normal WBC; stable electyrolytes; normal TSH; normal troponin; normal PT/INR - UA negative for infection - CXR negative for pneumonia, per my interpretation - CT head wo contrast negative for acute intracranial pathology - CTA head/neck negative for acute pathology - MRI ordered, but technical communication teacher called to alert me that the patient's pacemaker is not MRI compatible. - Patient is still complaining of difficulties with finding words. Significant concern for potential stroke. Will admit to the hospital service for further stroke workup. - Discussion was had with caser in about patient's case and need for admission - Hospitalist consulted for admission - [facility] ASSESSMENT AND PLAN: Diagnosis: Stroke-like symptoms Plan: admit Past Med/Surg History Medical History (Updated 06/11/23 @ 22:14 by Demi Wood MD) SSS (sick sinus syndrome) s/p PM placement in 2008 AAA (abdominal aortic aneurysm) stable - Abdominal aortic duplex report 01/2019: evidence of a 3.3 centimeter abdominal aortic aneurysm. Repeat 01/21 Paroxysmal atrial fibrillation Dyslipidemia HTN (hypertension) Tobacco use disorder Surgical History H/O hernia repair Pacemaker 2008 Family History Other Lung disease Social History Smoking Status: Never smoker Cigarettes Per Day: 10; Second Hand Exposure: No; Do You Dip or Chew Tobacco: No; Hx Alcohol Use: Yes Alcohol type: beer Alcohol Intake Frequency: 4 or More x per/Week Hx Substance Use: No Preferred Language: German Communication Ability: Effective Supervisor Stone Required: No Beliefs That Will Affect Care: None Current Living Situation: Spouse Feels Safe at Home: Yes Assistive Devices: None Allergies Allergies Allergy/AdvReac Type Severity Reaction Status Date / Time Sulfa (Sulfonamide Allergy Intermediate HIVES Verified 06/11/23 21:56 Antibiotics) Home Meds Home Medications Medication Instructions Recorded Confirmed atorvastatin 40 mg tablet 40 mg PO QPM 12/22/17 06/11/23 cyanocobalamin (vitamin B-12) 1,000 mcg PO 2XWK 12/22/17 06/11/23 1,000 mcg capsule magnesium oxide 400 mg PO 2XWK 12/22/17 06/11/23 metoprolol succinate 100 mg 100 mg PO QAM 12/22/17 06/11/23 tablet,extended release 24 hr aspirin 81 mg tablet,delayed 81 mg PO DAILY 06/11/23 06/11/23 release Results & Data (ED) Vital Signs Vital Signs - 24 hr 06/11/23 18:10 06/11/23 18:33 06/11/23 18:34 Temperature 36.5 C Temperature Source Temporal Artery Scan Pulse Rate 79 75 Pulse Rate [Apical] 70 Respiratory Rate 20 23 Blood Pressure 153/83 H Blood Pressure [Left Arm] 143/80 H Blood Pressure Mean 106 Blood Pressure Mean [Left Arm] 101 Pulse Oximetry 96 Oxygen Delivery Method Room Air Sepsis Recent Fever Within 48 Hours No Sepsis New/Unexplained Change in Mental Status No Sepsis Action Taken by Nursing No Action Required Laboratory Data 06/11/23 18:24 06/11/23 18:24 Lab Results 06/11/23 06/11/23 06/11/23 Range/Units 18:24 18:31 18:49 WBC 10.54 (4.8-10.8) K/ul RBC 4.65 L (4.70-6.10) M/uL Hgb 14.8 (14.0-18.0) g/dl POC Hgb 15.3 (14.0-18.0) g/dl Hct 43.9 (42.0-52.0) % POC Hct 45 (42-52) % MCV 94.4 (80.0-100.0) fL MCH 31.8 (25.0-34.0) pg MCHC 33.7 (32.0-36.0) g/dL RDW Std Deviation 43.5 (36.4-46.3) fL RDW Coeff of Kj 12.5 (11.5-14.5) % Plt Count 212 (130-400) K/uL MPV 11.1 (9.4-12.4) fL Immature Gran % (Auto) 0.3 % Neut % (Auto) 67.8 % Lymph % (Auto) 22.1 % [place] % (Auto) 8.3 % Eos % (Auto) 0.9 % Baso % (Auto) 0.6 % Neut # (Auto) 7.16 H (1.40-6.50) K/uL Lymph # (Auto) 2.33 (1.20-3.40) K/uL [place] # (Auto) 0.87 H (0.11-0.59) K/uL Eos # (Auto) 0.09 (0.00-0.50) K/uL Baso # (Auto) 0.06 (0.00-0.20) K/uL Immature Gran # (Auto) 0.03 (0.01-0.20) K/uL PT 11.0 (9.0-12.0) Seconds INR 1.0 (0.9-1.1) APTT 30 (21-31) Seconds PTT Ratio 1.1 POC Sodium 140 (135-144) mmol/L Sodium 138 (136-145) mmol/L POC Potassium 4.0 (3.3-5.0) mmol/L Potassium 4.0 (3.5-5.1) mmol/L POC Chloride 102 (101-112) mmol/L Chloride 105 (98-107) mmol/L Carbon Dioxide 28 (21-32) mmol/L POC Total CO2 28 (24-31) mmol/L Anion Gap 5 (3-11) POC Anion Gap 14.0 L (16-25) mmol/L POC BUN 12 (7-18) mg/dl BUN 14 (6-23) mg/dl Creatinine 1.00 (0.6-1.4) mg/dl POC Creatinine 1.1 (0.6-1.3) mg/dl Est Cr Clr Drug Dosing 69.2 ml/min Est GFR ( Amer) 87.4 ml/min Est GFR (Non-Af Amer) 75.4 ml/min BUN/Creatinine Ratio 14.0 (10-20) Glucose 81 (70-99(Fasting)) mg/dl POC Glucose (other) 81 (70-99) mg/dl Calcium 9.9 (8.6-10.3) mg/dl POC Ioniz Calcium [place] 1.25 (1.12-1.32) mmol/l Magnesium 1.9 (1.7-2.4) mg/dl Total Bilirubin 0.6 (0.2-1.0) mg/dl AST 24 (13-39) U/L ALT 17 (7-52) U/L Alkaline Phosphatase 60 (34-104) U/L Troponin I High Sens 4.5 (0-20) pg/ml Total Protein 7.2 (6.0-8.3) gm/dl Albumin 4.5 (3.4-5.0) gm/dl Globulin 2.7 (2.5-4.0) gm/dl Albumin/Globulin Ratio 1.7 (0.9-2) TSH 1.405 (0.300-4.500) uIu/ml Urine Color Urine Appearance (Clear) Urine pH (4.5-7.5) Ur Specific [place] (1.000-1.030) Urine Protein (Negative) Urine Glucose (UA) (Negative) Urine Ketones (Negative) Urine Blood (Negative) Urine Nitrite (Negative) Urine Bilirubin (Negative) Urine Urobilinogen (Negative) Ur Leukocyte Esterase (Negative) Blood Type O Negative Antibody Screen NEGATIVE 06/11/23 Range/Units 19:26 WBC (4.8-10.8) K/ul RBC (4.70-6.10) M/uL Hgb (14.0-18.0) g/dl POC Hgb (14.0-18.0) g/dl Hct (42.0-52.0) % POC Hct (42-52) % MCV (80.0-100.0) fL MCH (25.0-34.0) pg MCHC (32.0-36.0) g/dL RDW Std Deviation (36.4-46.3) fL RDW Coeff of Kj (11.5-14.5) % Plt Count (130-400) K/uL MPV (9.4-12.4) fL Immature Gran % (Auto) % Neut % (Auto) % Lymph % (Auto) % [place] % (Auto) % Eos % (Auto) % Baso % (Auto) % Neut # (Auto) (1.40-6.50) K/uL Lymph # (Auto) (1.20-3.40) K/uL [place] # (Auto) (0.11-0.59) K/uL Eos # (Auto) (0.00-0.50) K/uL Baso # (Auto) (0.00-0.20) K/uL Immature Gran # (Auto) (0.01-0.20) K/uL PT (9.0-12.0) Seconds INR (0.9-1.1) APTT (21-31) Seconds PTT Ratio POC Sodium (135-144) mmol/L Sodium (136-145) mmol/L POC Potassium (3.3-5.0) mmol/L Potassium (3.5-5.1) mmol/L POC Chloride (101-112) mmol/L Chloride (98-107) mmol/L Carbon Dioxide (21-32) mmol/L POC Total CO2 (24-31) mmol/L Anion Gap (3-11) POC Anion Gap (16-25) mmol/L POC BUN (7-18) mg/dl BUN (6-23) mg/dl Creatinine (0.6-1.4) mg/dl POC Creatinine (0.6-1.3) mg/dl Est Cr Clr Drug Dosing ml/min Est GFR ( Amer) ml/min Est GFR (Non-Af Amer) ml/min BUN/Creatinine Ratio (10-20) Glucose (70-99(Fasting)) mg/dl POC Glucose (other) (70-99) mg/dl Calcium (8.6-10.3) mg/dl POC Ioniz Calcium [place] (1.12-1.32) mmol/l Magnesium (1.7-2.4) mg/dl Total Bilirubin (0.2-1.0) mg/dl AST (13-39) U/L ALT (7-52) U/L Alkaline Phosphatase (34-104) U/L Troponin I High Sens (0-20) pg/ml Total Protein (6.0-8.3) gm/dl Albumin (3.4-5.0) gm/dl Globulin (2.5-4.0) gm/dl Albumin/Globulin Ratio (0.9-2) TSH (0.300-4.500) uIu/ml Urine Color Yellow Urine Appearance Clear (Clear) Urine pH 7.5 (4.5-7.5) Ur Specific [place] 1.007 (1.000-1.030) Urine Protein Negative (Negative) Urine Glucose (UA) Negative (Negative) Urine Ketones Negative (Negative) Urine Blood Negative (Negative) Urine Nitrite Negative (Negative) Urine Bilirubin Negative (Negative) Urine Urobilinogen Negative (Negative) Ur Leukocyte Esterase Negative (Negative) Blood Type Antibody Screen Administered Medications Discontinued Medications Ioversol (Optiray 320 125ml) 117 ml IV ONCE ONE Stop: 06/11/23 20:43 Last Admin: 06/11/23 20:43 Dose: 117 ml Documented By: EAVitaly Imaging Data Radiologist's Impression: Chest X-Ray 06/11/23 18:12 XR chest 1V portable CLINICAL HISTORY: dizziness, confusion TECHNIQUE: Single frontal radiograph of the chest was obtained. Comparison: Comparison is made to chest radiograph 09/27/2019 FINDINGS: An implanted pacemaker is seen. Calcified aortic knob is seen. The lungs are clear. No evidence of pleural effusion or pneumothorax. IMPRESSION: No acute chest disease. ACT 112: Negative or not required by law. Electronically signed by: Oren Serrano M.D. 06/11/2023 7:[address] 06/11/23 18:12 CT angio neck with con, CT head/brain wo con, CT angio head w con CLINICAL HISTORY: dizziness, confusion TECHNIQUE: Contiguous axial CT images of the head were acquired from the base of the skull to the vertex without intravenous contrast administration. CT angiography of the head and neck was performed following intravenous administration of iodinated contrast. Coronal and sagittal MIPS were obtained from the axial data set and were submitted for review. Automated dose lowering techniques and/or adjustment according to patient size were utilized for this examination. All measurements were calculated based on NASCET criteria. CT DOSE: 1041.92 mGy.cm Comparison: Comparison is made to CTA neck 11/29/2009 FINDINGS: CT head: There is no acute intracranial hemorrhage or evidence of acute territorial infarction. No shift of the midline structures, mass effect, or extra-axial abnormalities are shown. 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 Lungs and soft tissues are unremarkable. CTA Neck: A 3 vessel aortic arch is shown. There is no significant atherosclerotic plaque in the aortic arch or the origins of the innominate, left common carotid, and left subclavian arteries. There is mild calcified atherosclerotic plaque at the bifurcation of the bilateral common carotid arteries without hemodynamically significant flow stenosis. There is no dissection present. The left vertebral artery is dominant. CTA Head: The anterior and posterior cerebral circulations are patent. No hemodynamically significant stenosis, aneurysm, dissection, or arteriovenous malformation is shown. IMPRESSION: 1. No acute intracranial hemorrhage, evidence of acute territorial infarction, or other acute intracranial disease process. 2. No occlusion, hemodynamically significant stenosis, or dissection in the major cervical arteries. 3. No occlusion, hemodynamically significant stenosis, aneurysm, dissection, or arteriovenous malformation in the major intracranial arteries. Assessment of stenosis of the internal carotid arteries is based on NASCET criteria. ACT 112: Negative or not required by law. Electronically signed by: Oren Serrano M.D. 06/11/2023 9:10 PM Head CTA 06/11/23 18:12 CT angio neck with con, CT head/brain wo con, CT angio head w con CLINICAL HISTORY: dizziness, confusion TECHNIQUE: Contiguous axial CT images of the head were acquired from the base of the skull to the vertex without intravenous contrast administration. CT angiography of the head and neck was performed following intravenous administration of iodinated contrast. Coronal and sagittal MIPS were obtained from the axial data set and were submitted for review. Automated dose lowering techniques and/or adjustment according to patient size were utilized for this examination. All measurements were calculated based on NASCET criteria. CT DOSE: 1041.92 mGy.cm Comparison: Comparison is made to CTA neck 11/29/2009 FINDINGS: CT head: There is no acute intracranial hemorrhage or evidence of acute territorial infarction. No shift of the midline structures, mass effect, or extra-axial abnormalities are shown. 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 Lungs and soft tissues are unremarkable. CTA Neck: A 3 vessel aortic arch is shown. There is no significant atherosclerotic plaque in the aortic arch or the origins of the innominate, left common carotid, and left subclavian arteries. There is mild calcified atherosclerotic plaque at the bifurcation of the bilateral common carotid arteries without hemodynamically significant flow stenosis. There is no dissection present. The left vertebral artery is dominant. CTA Head: The anterior and posterior cerebral circulations are patent. No hemodynamically significant stenosis, aneurysm, dissection, or arteriovenous malformation is shown. IMPRESSION: 1. No acute intracranial hemorrhage, evidence of acute territorial infarction, or other acute intracranial disease process. 2. No occlusion, hemodynamically significant stenosis, or dissection in the major cervical arteries. 3. No occlusion, hemodynamically significant stenosis, aneurysm, dissection, or arteriovenous malformation in the major intracranial arteries. Assessment of stenosis of the internal carotid arteries is based on NASCET criteria. ACT 112: Negative or not required by law. Electronically signed by: Oren Serrano M.D. 06/11/2023 9:10 PM Neck CTA 06/11/23 18:12 CT angio neck with con, CT head/brain wo con, CT angio head w con CLINICAL HISTORY: dizziness, confusion TECHNIQUE: Contiguous axial CT images of the head were acquired from the base of the skull to the vertex without intravenous contrast administration. CT angiography of the head and neck was performed following intravenous administration of iodinated contrast. Coronal and sagittal MIPS were obtained from the axial data set and were submitted for review. Automated dose lowering techniques and/or adjustment according to patient size were utilized for this examination. All measurements were calculated based on NASCET criteria. CT DOSE: 1041.92 mGy.cm Comparison: Comparison is made to CTA neck 11/29/2009 FINDINGS: CT head: There is no acute intracranial hemorrhage or evidence of acute territorial infarction. No shift of the midline structures, mass effect, or extra-axial abnormalities are shown. 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 Lungs and soft tissues are unremarkable. CTA Neck: A 3 vessel aortic arch is shown. There is no significant atherosclerotic plaque in the aortic arch or the origins of the innominate, left common carotid, and left subclavian arteries. There is mild calcified atherosclerotic plaque at the bifurcation of the bilateral common carotid arteries without hemodynamically significant flow stenosis. There is no dissection present. The left vertebral artery is dominant. CTA Head: The anterior and posterior cerebral circulations are patent. No hemodynamically significant stenosis, aneurysm, dissection, or arteriovenous malformation is shown. IMPRESSION: 1. No acute intracranial hemorrhage, evidence of acute territorial infarction, or other acute intracranial disease process. 2. No occlusion, hemodynamically significant stenosis, or dissection in the major cervical arteries. 3. No occlusion, hemodynamically significant stenosis, aneurysm, dissection, or arteriovenous malformation in the major intracranial arteries. Assessment of stenosis of the internal carotid arteries is based on NASCET criteria. ACT 112: Negative or not required by law. Electronically signed by: Oren Serrano M.D. 06/11/2023 9:10 PM Discharge Plan Visit Data Chief Complaint: TIA Symptoms Stated Complaint: CONFUSION, DIZZY, HEADACHE ED Provider: Demi Wood Discharge Problem: Stroke-like symptoms Forms Stand Alone Forms: [employer] Prescriptions Prescriptions: No Action atorvastatin 40 mg Tablet 40 mg PO QPM metoprolol succinate 100 mg Tablet Extended Release 24 Hr 100 mg PO QAM magnesium oxide 400 mg Capsule 400 mg PO 2XWK cyanocobalamin (vitamin B-12) 1,000 mcg Capsule 1,000 mcg PO 2XWK aspirin [Aspir-Low] 81 mg Tablet,Delayed Release (Dr/Ec) 81 mg PO DAILY Referrals Referrals: PCP,NO [Primary Care Provider] -
[2023-06-11 19:49] LABS: Appearance Urine Clear (Clear); Bilirubin Urine Negative (Negative); Blood Urine Negative (Negative); Color Urine Yellow; Glucose Urine UA Negative (Negative); Ketones Urine Negative (Negative); Leukocyte Esterase Urine Negative (Negative); Nitrite Urine Negative (Negative); Protein Urine Negative (Negative); Specific Gravity Urine 1.007 (1.000-1.030); Urobilinogen Urine Negative (Negative); pH Urine 7.5 (4.5-7.5)
[2023-06-11] MEDS: OPTIRAY 320 125ml IV ONE (20:43)
--- NOTE | 2023-06-11 21:12 | CT Scan Report ---
CT angio neck with con, CT head/brain wo con, CT angio head w con CLINICAL HISTORY: dizziness, confusion TECHNIQUE: Contiguous axial CT images of the head were acquired from the base of the skull to the quang benson without intravenous contrast administration. CT angiography of the head and neck was performed f ollowing intravenous administration of iodinated contrast. Coronal and sagittal MIPS were obtained fr om the axial data set and were submitted for review. Automated dose lowering techniques and/or adjus tment according to patient size were utilized for this examination. All measurements were calculated based on NASCET criteria. CT DOSE: 1041.92 mGy.cm Comparison: Comparison is made to CTA neck 11/29/2009 FINDINGS: CT head: There is no acute intracranial hemorrhage or evidence of acute territorial infarction. No sh ift of the midline structures, mass effect, or extra-axial abnormalities are shown. Focal encephaloma lacia is seen in the left internal capsule compatible with old infarct. Lungs and soft tissues are unremarkable. CTA Neck: A 3 vessel aortic arch is shown. There is no significant atherosclerotic plaque in the aor tic arch or the origins of the innominate, left common carotid, and left subclavian arteries. There is mild calcified atherosclerotic plaque at the bifurcation of the bilateral common carotid arteries without hemodynamically significant flow stenosis. There is no dissection present. The left vertebral artery is dominant. CTA Head: The anterior and posterior cerebral circulations are patent. No hemodynamically significan t stenosis, aneurysm, dissection, or arteriovenous malformation is shown. IMPRESSION: 1. No acute intracranial hemorrhage, evidence of acute territorial infarction, or other acute intrac ranial disease process. 2. No occlusion, hemodynamically significant stenosis, or dissection in the major cervical arteries. 3. No occlusion, hemodynamically significant stenosis, aneurysm, dissection, or arteriovenous malfor mation in the major intracranial arteries. Assessment of stenosis of the internal carotid arteries is based on NASCET criteria. ACT 112: Negative or not required by law. Electronically signed by: Oren Serrano M.D. 06/11/2023 9:10 PM
[2023-06-11] MEDS: SODIUM CHLORIDE 0.9% 1,000 ML IV ONE (22:34)
[2023-06-11] MEDS: MAGNESIUM SULFATE / D5W 1 GM/100 ML BAG IV ONE (22:34)
--- NOTE | 2023-06-12 00:38 | History & Physical Report ---
Date of Service June 12, 2023 Assessment & Plan (1) TIA (transient ischemic attack): Plan: Erratic ASA compliance nonocclusive CAD/PVD, hx SSS status post PPM hypertension, patient currently normotensive hyperlipidemia on statin Rx COPD, at baseline prediabetes, hemoglobin A1c of 5.5 from last year ongoing tobacco abuse OBS Medical telemetry Neurochecks Aspirin now Continue statin Rx Patient counseled regarding need for daily compliance given vascular disease. Decrease maintenance beta-porter dose for now until stroke ruled out given normotension CT head after 24 hours, MRI precluded by PPM Neurology consult contingent on workup results Update lipid profile and hemoglobin A1c Nicotine replacement therapy as needed DVT prophylaxis. Lovenox subcu Full code Text document was generated using Partender voice recognition software. It may contain grammatical or spelling errors. Kindly contact undersigned for clarification of any documentation item in question. History of Present Illness Chief Complaint: Strokelike symptoms Primary Care Provider: Gail Easley MD History obtained from patient and records. Medical history significant for SSS status post PPM, nonocclusive CAD, PVD, hypertension, hyperlipidemia, COPD, prediabetes, complicated diverticulitis status post surgery, ongoing tobacco abuse. Last confinement September 2019 for near syncope status post PPM. [place] yesterday afternoon when he had trouble getting words out. No headache, no chest pain, no SOB. Thinks it may have happened before related to his dehydration. Patient admits to not taking home aspirin regularly for unclear reasons. Last dose was about 2 days ago. Patient symptoms improving upon arrival at the ER. Medical History as above Surgical History : PPM, bowel surgery, tonsillectomy, hernia repair Family History : Lung cancer Personal/Social history : Few cigarettes a day, occasional EtOH intake, retired from [employer] Allergies Allergy/AdvReac Type Severity Reaction Status Date / Time Sulfa (Sulfonamide Allergy Intermediate HIVES Verified 06/11/23 21:56 Antibiotics) Home Medications Medication Instructions Recorded Confirmed Type atorvastatin 40 mg tablet 40 mg PO QPM 12/22/17 06/11/23 History cyanocobalamin (vitamin B-12) 1,000 mcg PO 2XWK 12/22/17 06/11/23 History 1,000 mcg capsule magnesium oxide 400 mg PO 2XWK 12/22/17 06/11/23 History metoprolol succinate 100 mg 100 mg PO QAM 12/22/17 06/11/23 History tablet,extended release 24 hr aspirin 81 mg tablet,delayed 81 mg PO DAILY 06/11/23 06/11/23 History release Past Med/Surg History Medical History (Updated 06/12/23 @ 09:23 by Kevyn Perdomo MD) SSS (sick sinus syndrome) s/p PM placement in 2008 AAA (abdominal aortic aneurysm) stable - Abdominal aortic duplex report 01/2019: evidence of a 3.3 centimeter abdominal aortic aneurysm. Repeat 01/21 Paroxysmal atrial fibrillation Dyslipidemia HTN (hypertension) Tobacco use disorder Surgical History H/O hernia repair Pacemaker 2008 Family History Other Lung disease Social History Smoking Status: Current every day smoker Tobacco Type: Cigarettes Cigarettes Per Day: 10; Second Hand Exposure: No; Do You Dip or Chew Tobacco: No; Hx Alcohol Use: Yes Alcohol type: beer Alcohol Intake Frequency: 4 or More x per/Week Hx Substance Use: No Preferred Language: [place]an Communication Ability: Effective Tin Dipper Required: No Beliefs That Will Affect Care: None Current Living Situation: Spouse Feels Safe at Home: Yes Assistive Devices: None Review of Systems Review of Systems: As per HPI, all other systems reviewed and negative Physical Exam Physical Exam: GENERAL: Comfortable, pleasant, no respiratory distress SKIN: Normal color, warm HEENT: [place] palpebral conjunctivae, no ptosis, dry buccal mucosa NECK : Supple, no tenderness CHEST : CTA, no tenderness HEART : RRR, no obvious murmurs ABDOMEN: no distention, nontender EXTREMITIES : No LE swelling/tenderness, no other conspicuous deformities noted NEUROLOGIC : Coherent, no facial asymmetry, MMTs 4/5, no pronator drift, gait and stance not assessed Results & Data Results & Data Vital Signs (Past 12 Hours) Vital Signs Temp Pulse Pulse Resp BP BP Pulse Ox 06/11/23 22:29 88 16 122/73 98 06/11/23 22:23 62 06/11/23 18:34 75 06/11/23 18:33 70 23 143/80 H 06/11/23 18:10 36.5 C 79 20 153/83 H 96 O2 Del Method 06/11/23 22:29 Room Air 06/11/23 22:23 06/11/23 18:34 06/11/23 18:33 06/11/23 18:10 Room Air Laboratory Results Laboratory Results WBC 10.54 K/ul (4.8-10.8) 06/11/23 18: RBC 4.65 M/uL (4.70-6.10) L 06/11/23 18:24 Hgb 14.8 g/dl (14.0-18.0) 06/11/23 18: POC Hgb 15.3 g/dl (14.0-18.0) 06/11/23 18:31 Hct 43.9 % (42.0-52.0) 06/11/23 18: POC Hct 45 % (42-52) 06/11/23 18:31 MCV 94.4 fL (80.0-100.0) 06/11/23 18: MCH 31.8 pg (25.0-34.0) 06/11/23 18:24 MCHC 33.7 g/dL (32.0-36.0) 06/11/23 18: RDW Std Deviation 43.5 fL (36.4-46.3) 06/11/23 18: RDW Coeff of Kj 12.5 % (11.5-14.5) 06/11/23 18: Plt Count 212 K/uL (130-400) 06/11/23: MPV 11.1 fL (9.4-12.4) 06/11/23 18:24 Immature Gran % (Auto) 0.3 % 06/11/23 18: Neut % (Auto) 67.8 % 06/11/23 18: Lymph % (Auto) 22.1 % 06/11/23 18: [place] % (Auto) 8.3 % 06/11/23 18: Eos % (Auto) 0.9 % 06/11/23 18: Baso % (Auto) 0.6 % 06/11/23 18:24 Neut # (Auto) 7.16 K/uL (1.40-6.50) H 06/11/23 18:24 Lymph # (Auto) 2.33 K/uL (1.20-3.40) 06/11/23 18:24 [place] # (Auto) 0.87 K/uL (0.11-0.59) H 06/11/23 18:24 Eos # (Auto) 0.09 K/uL (0.00-0.50) 06/11/23 18:24 Baso # (Auto) 0.06 K/uL (0.00-0.20) 06/11/23 18:24 Immature Gran # (Auto) 0.03 K/uL (0.01-0.20) 06/11/23 18:24 PT 11.0 Seconds (9.0-12.0) 06/11/23 18: INR 1.0 (0.9-1.1) 06/11/23 18: APTT 30 Seconds (21-31) 06/11/23 18: PTT Ratio 1.1 06/11/23 18: POC Sodium 140 mmol/L (135-144) 06/11/23 18:31 Sodium 138 mmol/L (136-145) 06/11/23 18:24 POC Potassium 4.0 mmol/L (3.3-5.0) 06/11/23 18:31 Potassium 4.0 mmol/L (3.5-5.1) 06/11/23 18:24 POC Chloride 102 mmol/L (101-112) 06/11/23 18:31 Chloride 105 mmol/L (98-107) 06/11/23 18:24 Carbon Dioxide 28 mmol/L (21-32) 06/11/23 18:24 POC Total CO2 28 mmol/L (24-31) 06/11/23 18:31 Anion Gap 5 (3-11) 06/11/23 18:24 POC Anion Gap 14.0 mmol/L (16-25) L 06/11/23 18:31 POC BUN 12 mg/dl (7-18) 06/11/23 18: BUN 14 mg/dl (6-23) 06/11/23 18:24 Creatinine 1.00 mg/dl (0.6-1.4) 06/11/23 18:24 POC Creatinine 1.1 mg/dl (0.6-1.3) 06/11/23 18:31 Est Cr Clr Drug Dosing 69.2 ml/min 06/11/23 18:24 Est GFR ( Amer) 87.4 ml/min 06/11/23 18:24 Est GFR (Non-Af Amer) 75.4 ml/min 06/11/23 18:24 BUN/Creatinine Ratio 14.0 (10-20) 06/11/23 18:24 Glucose 81 mg/dl (70-99(Fasting)) 06/11/23 18:24 POC Glucose (other) 81 mg/dl (70-99) 06/11/23 18:31 Calcium 9.9 mg/dl (8.6-10.3) 06/11/23 18: POC Ioniz Calcium [place] 1.25 mmol/l (1.12-1.32) 06/11/23 18: Magnesium 1.9 mg/dl (1.7-2.4) 06/11/23 18:24 Total Bilirubin 0.6 mg/dl (0.2-1.0) 06/11/23 18: AST 24 U/L (13-39) 06/11/23 18: ALT 17 U/L (7-52) 06/11/23 18:24 Alkaline Phosphatase 60 U/L (34-104) 06/11/23 18:24 Troponin I High Sens 4.5 pg/ml (0-20) 06/11/23 18: Total Protein 7.2 gm/dl (6.0-8.3) 06/11/23 18:24 Albumin 4.5 gm/dl (3.4-5.0) 06/11/23 18: Globulin 2.7 gm/dl (2.5-4.0) 06/11/23 18: Albumin/Globulin Ratio 1.7 (0.9-2) 06/11/23 18:24 TSH 1.405 uIu/ml (0.300-4.500) 06/11/23 18: Urine Color Yellow 06/11/23 19:26 Urine Appearance Clear (Clear) 06/11/23: Urine pH 7.5 (4.5-7.5) 06/11/23 19: Ur Specific [place] 1.007 (1.000-1.030) 06/11/23 19: Urine Protein Negative (Negative) 06/11/23 19:26 Urine Glucose (UA) Negative (Negative) 06/11/23 19:26 Urine Ketones Negative (Negative) 06/11/23 19:26 Urine Blood Negative (Negative) 06/11/23 19:26 Urine Nitrite Negative (Negative) 06/11/23 19:26 Urine Bilirubin Negative (Negative) 06/11/23 19:26 Urine Urobilinogen Negative (Negative) 06/11/23 19:26 Ur Leukocyte Esterase Negative (Negative) 06/11/23 19:26 Blood Type O Negative 06/11/23 18:49 Antibody Screen NEGATIVE 06/11/23 18:49 Impressions Chest X-Ray 06/11/23 18:12 XR chest 1V portable CLINICAL HISTORY: dizziness, confusion TECHNIQUE: Single frontal radiograph of the chest was obtained. Comparison: Comparison is made to chest radiograph 09/27/2019 FINDINGS: An implanted pacemaker is seen. Calcified aortic knob is seen. The lungs are clear. No evidence of pleural effusion or pneumothorax. IMPRESSION: No acute chest disease. ACT 112: Negative or not required by law. Electronically signed by: Oren Serrano M.D. 06/11/2023 7:[address] 06/11/23 18:12 CT angio neck with con, CT head/brain wo con, CT angio head w con CLINICAL HISTORY: dizziness, confusion TECHNIQUE: Contiguous axial CT images of the head were acquired from the base of the skull to the vertex without intravenous contrast administration. CT angiogr aphy of the head and neck was performed following intravenous administration of iodinated contrast. Coronal and sagittal MIPS were obtained from the axial data set and were submitted for review. Automated dose lowering techniques and/or adjustment according to patient size were utilized for this examination. All measurements were calculated based on NASCET criteria. CT DOSE: 1041.92 mGy.cm Comparison: Comparison is made to CTA neck 11/29/2009 FINDINGS: CT head: There is no acute intracranial hemorrhage or evidence of acute territorial infarction. No shift of the midline structures, mass effect, or extra-axial abnormalities are shown. 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 Lungs and soft tissues are unremarkable. CTA Neck: A 3 vessel aortic arch is shown. There is no significant atherosclerotic plaque in the aortic arch or the origins of the innominate, left common carotid, and left subclavian arteries. There is mild calcified atherosclerotic plaque at the bifurcation of the bilateral common carotid arteries without hemodynamically significant flow stenosis. There is no dissection present. The left vertebral artery is dominant. CTA Head: The anterior and posterior cerebral circulations are patent. No hemodynamically significant stenosis, aneurysm, dissection, or arteriovenous malformation is shown. IMPRESSION: 1. No acute intracranial hemorrhage, evidence of acute territorial infarction, or other acute intracranial disease process. 2. No occlusion, hemodynamically significant stenosis, or dissection in the major cervical arteries. 3. No occlusion, hemodynamically significant stenosis, aneurysm, dissection, or arteriovenous malformation in the major intracranial arteries. Assessment of stenosis of the internal carotid arteries is based on NASCET criteria. ACT 112: Negative or not required by law. Electronically signed by: Oren Serrano M.D. 06/11/2023 9:10 PM Head CTA 06/11/23 18:12 CT angio neck with con, CT head/brain wo con, CT angio head w con CLINICAL HISTORY: dizziness, confusion TECHNIQUE: Contiguous axial CT images of the head were acquired from the base of the skull to the vertex without intravenous contrast administration. CT angiography of the head and neck was performed following intravenous administration of iodinated contrast. Coronal and sagittal MIPS were obtained from the axial data set and were submitted for review. Automated dose lowering techniques and/or adjustment according to patient size were utilized for this ex amination. All measurements were calculated based on NASCET criteria. CT DOSE: 1041.92 mGy.cm Comparison: Comparison is made to CTA neck 11/29/2009 FINDINGS: CT head: There is no acute intracranial hemorrhage or evidence of acute territorial infarction. No shift of the midline structures, mass effect, or extra-axial abnormalities are shown. 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 Lungs and soft tissues are unremarkable. CTA Neck: A 3 vessel aortic arch is shown. There is no significant atherosclerotic plaque in the aortic arch or the origins of the innominate, left common carotid, and left subclavian arteries. There is mild calcified atherosclerotic plaque at the bifurcation of the bilateral common carotid arteries without hemodynamically significant flow stenosis. There is no dissection present. The left vertebral artery is dominant. CTA Head: The anterior and posterior cerebral circulations are patent. No hemodynamically significant stenosis, aneurysm, dissection, or arteriovenous malformation is shown. IMPRESSION: 1. No acute intracranial hemorrhage, evidence of acute territorial infarction, or other acute intracranial disease process. 2. No occlusion, hemodynamically significant stenosis, or dissection in the major cervical arteries. 3. No occlusion, hemodynamically significant stenosis, aneurysm, dissection, or arteriovenous malformation in the major intracranial arteries. Assessment of stenosis of the internal carotid arteries is based on NASCET criteria. ACT 112: Negative or not required by law. Electronically signed by: Oren Serrano M.D. 06/11/2023 9:10 PM Neck CTA 06/11/23 18:12 CT angio neck with con, CT head/brain wo con, CT angio head w con CLINICAL HISTORY: dizziness, confusion TECHNIQUE: Contiguous axial CT images of the head were acquired from the base of the skull to the vertex without intravenous contrast administration. CT angiogr aphy of the head and neck was performed following intravenous administration of iodinated contrast. Coronal and sagittal MIPS were obtained from the axial data set and were submitted for review. Automated dose lowering techniques and/or adjustment according to patient size were utilized for this examination. All measurements were calculated based on NASCET criteria. CT DOSE: 1041.92 mGy.cm Comparison: Comparison is made to CTA neck 11/29/2009 FINDINGS: CT head: There is no acute intracranial hemorrhage or evidence of acute territorial infarction. No shift of the midline structures, mass effect, or extra-axial abnormalities are shown. 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 Lungs and soft tissues are unremarkable. CTA Neck: A 3 vessel aortic arch is shown. There is no significant atherosclerotic plaque in the aortic arch or the origins of the innominate, left common carotid, and left subclavian arteries. There is mild calcified atherosclerotic plaque at the bifurcation of the bilateral common carotid arteries without hemodynamically significant flow stenosis. There is no dissection present. The left vertebral artery is dominant. CTA Head: The anterior and posterior cerebral circulations are patent. No hemodynamically significant stenosis, aneurysm, dissection, or arteriovenous malformation is shown. IMPRESSION: 1. No acute intracranial hemorrhage, evidence of acute territorial infarction, or other acute intracranial disease process. 2. No occlusion, hemodynamically significant stenosis, or dissection in the major cervical arteries. 3. No occlusion, hemodynamically significant stenosis, aneurysm, dissection, or arteriovenous malformation in the major intracranial arteries. Assessment of stenosis of the internal carotid arteries is based on NASCET criteria. ACT 112: Negative or not required by law. Electronically signed by: Oren Serrano M.D. 06/11/2023 9:10 PM Diagnostic Findings EKG as per my interpretation :rate 70, paced rhythm
[2023-06-12] MEDS ORDERED: PHARMACIST DISCHARGE MED REC CONSULT PRN (00:40)
[2023-06-12] MEDS ORDERED: PROMETHAZINE HCL 6.25 MG in SODIUM CHLORIDE 0.9% 50 ML IV PRN (00:43)
[2023-06-12] MEDS ORDERED: ACETAMINOPHEN 325 MG TAB PO PRN ×2 (00:43→14:14)
[2023-06-12] MEDS: ASPIRIN 81 MG CHEW PO STA (01:04)
[2023-06-12 04:35] LABS: Basophils # (auto) 0.04 K/uL (0.00-0.20); Basophils % (auto) 0.6 %; Eosinophils # (auto) 0.19 K/uL (0.00-0.50); Eosinophils % (auto) 2.9 %; Hematocrit (blood only) 38.9 % (42.0-52.0); Hemoglobin 13.4 g/dl (14.0-18.0); Immature Granulocytes # (auto) 0.01 K/uL (0.01-0.20); Immature Granulocytes % (auto) 0.2 %; Lymphocytes % (auto) 42.9 %; Mean Corpuscular Hemoglobin 32.2 pg (25.0-34.0); Mean Corpuscular Hgb Conc 34.4 g/dL (32.0-36.0); Mean Corpuscular Volume 93.5 fL (80.0-100.0); Mean Platelet Volume 11.2 fL (9.4-12.4); Monocytes # (auto) 0.71 K/uL (0.11-0.59); Monocytes % (auto) 10.9 %; Neutrophils # (auto) 2.77 K/uL (1.40-6.50); Neutrophils % (auto) 42.5 %; Platelet Count 180 K/uL (130-400); RDW Coefficient of Variation 12.6 % (11.5-14.5); RDW Standard Deviation 43.8 fL (36.4-46.3); Red Blood Count 4.16 M/uL (4.70-6.10); White Blood Count 6.52 K/ul (4.8-10.8)
[2023-06-12 04:47] LABS: BUN Creatinine Ratio 14.6 (10-20); Calcium 8.9 mg/dl (8.6-10.3); Chol HDL Ratio 2.8 (0-5); Creatinine Clr Calc Pharmacy 72.1 ml/min; Est GFR (African American) 91.8 ml/min; Est GFR (Non-African American) 79.2 ml/min; Potassium 3.8 mmol/L (3.5-5.1)
[2023-06-12 07:56] LABS: Estimated Average Glucose 114 mg/dl; Hemoglobin A1C 5.6 % (4.5-5.6)
[2023-06-12] MEDS: METOPROLOL SUCC 25MG EXT REL TAB PO SCH (08:04)
[2023-06-12] MEDS: ENOXAPARIN INJ 30 MG/0.3 ML SYR SQ SCH (08:04)
--- OUTSIDE RECORDS SUMMARY | 2023-06-12 09:34 | External Medical Summary | Summary of Care ---
Author Name Unknown Organization [facility] Address [address] [place] [address] Phone [phone] Care Team Providers Care Food Assembler Name Role Phone Gail Easley MD Primary Care Provider + Encounter Details Date Type Department Care Team ([facility] st Contact Info) Description 02/19/2023 Result Scan Unspecified Department Ramon Walter, [address] [place] [address] <No scans attached> Allergies Active Allergy Reactions Criticality Noted Date Comments Sulfa Antibiotics 02/21/1998 erythema multiforme documented as of this encounter (statuses as of 02/19/2023) Medications Medication Sig Dispensed Refills Start Date End Date Status ASPIRIN 81 MG PO CHEWIndications:Sinoat rial node dysfunction (HCC) One pill by mouth once a day with food 100 5 10/21/2008 Active Naproxen Sodium 220 MG Oral Tablet Take 2 Tablets by mouth daily as needed for Pain. 0 Active Atorvastatin Calcium 40 MG Oral Tablet (Lipitor)Indications:D yslipidemia, goal LDL below 100 TAKE 1 TABLET BY MOUTH ONCE DAILY 90 Tablet 3 04/06/2022 Active Metoprolol Succinate ER 100 MG Oral Tablet Extended Release 24 Hour (toPROL XL)Indications:PAT (paroxysmal atrial tachycardia),Paroxysma l atrial fibrillation (HCC) TAKE 1 TABLET BY MOUTH ONCE DAILY 90 Tablet 3 12/17/2022 Active documented as of this encounter (statuses as of 02/19/2023) Active Problems Problem Noted Date Diagnosed Date Pulmonary emphysema 2022 Atherosclerosis of coronary artery of [place] heart without angina pectoris 2022 PAT (paroxysmal atrial tachycardia) 01/09/2022 HTN, goal below 140/90 01/11/2021 Paroxysmal atrial fibrillation 05/15/2019 AAA (abdominal aortic aneurysm) 05/15/2019 Diverticulitis of large intestine with abscess 1 Diverticulitis of sigmoid colon 12/22/2017 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/2017 Overview: Repeat US in 2-3 years (2020) Tobacco use disorder 05/02/2017 Cardiac pacemaker in situ 11/26/2012 Dyslipidemia, goal LDL below 100 03/15/2010 SINOATRIAL NODE DYSFUNCTION-s/p pacer 10/10 documented as of this encounter (statuses as of 02/19/2023) Resolved Problems Problem Noted Date Diagnosed Date Resolved Date Prediabetes 12/14/2019 08/16/2022 Overview: Per Prediabetes protocol PAT (paroxysmal atrial tachycardia) 07/13/2015 12/13/2021 Overview: More specified condition of afib on pl Positional lightheadedness 07/13/2015 0 11/07/2017 Atrial fibrillation 03/10/2009 10/30/19 17 Shortness of breath 11/23/2008 10/30/19 17 Malaise and fatigue 11/23/2008 10/30/19 17 documented as of this encounter (statuses as of 02/19/2023) Immunizations Name Administration Dates Next Due COVID-19 mRNA, LNP-s, No Pre serve, 2-Dose Series (Moderna) 06/06/2020,05/09/2020 Covid-19, Mrna, Lnp-s, Pf, B ivalent, 30 Mcg, IM, 12 yrs and above (Pfizer) 01/18/2022 Pneumococcal Conjugate Vacc, 13 Valent (Prevnar) 11/07/2017 Pneumococcal Polysaccharide PPV23 (Pneumovax) 05/15/2019,04/17/2018() Season Influenza, Quad, PF, Adjuvanted, 65+ Yrs, IM (FLUAD) 11/24/2019 Seasonal Influenza, PF, 6 M & above, IM , (FluLaval or Fluzone) 11/28/2018,04/17/2018(Deferred: - dr. sánchez is aware) Seasonal Influenza, Quadriva lent Hd (Fluzone Hd) 2022 TD - Tetanus/Diptheria (ADULT) 07/12/2022 TDAP (age 10 and older)(Boostrix) 08/23/2009 TDAP (age 11 and older)(Adacel) 08/23/2009 Zoster Vaccine Recombinant (Shingrix) 04/24/2018 ,11/07/2017 documented as of this encounter Social History Tobacco Use Types Packs/Day Years Used Date Smoking Tobacco: Every Day Cigarettes 0.5 47 Cigars Smokeless Tobacco: Never Alcohol Use Standard Drinks/Week Comments Yes 0 (1 standard drink = 0.6 oz pur e alcohol) 3 beers per week AUDIT-C Answer Date Recorded Q1: How often do you have a drink containing alc ohol? 2-3 times a week 10/05/2020 Q2: How many drinks containi ng alcohol do you have on a typical day when you are drinking? 1 or 2 10/05/2020 Q3: How often do you have si x or more drinks on one occasion? Not asked 10/05/2020 PHQ-2 Answer Date Recorded PHQ Adult Total Score 1 07/12/2022 Hunger Vital Sign Answer Date Recorded Within the past 12 months, y ou worried that your food would run out before you got the money to buy more. Never true 07/13/19 23 Within the past 12 months, t he food you bought just didn't last and you didn't have money to get more. Never true 07/12/2022 Sex and Gender Information Value Date Recorded Sex Assigned at Male 11/06/2018 1:40 PM EDT Gender Identity Male 11/06/2018 1:40 PM EDT Sexual Orientation Straight 11/06/2018 1: 40 PM EDT Job Start Date Occupation Industry Not on file Not on file Not on file documented as of this encounter Functional Status Functional Status Response Date of Assess ment Are you deaf or do you have serious difficulty h earing? No 04/14/2018 Are you blind or do you have serious difficulty seeing, even when wearing glasses? No 04/14/2018 Do you have serious difficul ty walking or climbing stairs? (5 years old or older) No 04/14/2018 Do you have difficulty dress ing or bathing? (5 years old or older) No 04/14/2018 Because of a physical, menta l, or emotional condition, do you have difficulty doing errands alone such as visiting a doctor s office or shopping? (15 years old or older) No 04/14/19 19 Cognitive Status Response Date of Assessm ent Because of a physical, menta l, or emotional condition, do you have serious difficulty concentrating, remembering, or making decisions? (5 years old or older) No 04/14/2018 documented as of this encounter Plan of Treatment Upcoming Encounters Date Type Department Care Team (Late st Contact Info) Description 03/14/2023 8:00 AM EST Office Visit General Internal Medicine [facility] [place] [address] [place] [address] Gail Easley MD [address] [place] [address] 03/22/2023 10:45 AM EST Office Visit General Surgery, [place] [address] [place] [address] Larry Stringer MD [address] [place] [address] 07/16/2023 8:20 AM EDT Office Visit General Internal Medicine [facility] [place] [address] [place] [address] Gail Easley MD [address] [place] [address] [address] 07/24/2023 8:00 AM EDT Nurse Only Ancillary [facility] [place] [address] [place] [address] [address] Im, Nurse Annual Wellness [facility] [address] [place] [address] Health Maintenance Due Date Last Done Comments DISCUSS TOBACCO CESSATION (REFER TO SMARTSET #3291) 1950 Alpha-1 Antitrypsin 12/03/1969 Cologuard 12/03/1996 Fecal Occult Blood Test 12/03/1996 Sigmoidoscopy 12/03/1996 COVID-19 Vaccine ( season) 2022 01/18/2022, 06/06/2020, 05/09/2020 *COPD SEVERITY VERIFIED BY PFT 12/07/2022 Depression Screening 07/13/2023 07/12/2022 GFR 12/05/2023 2022, 07/02, 01/09/2022, Additional history exists O2 ASSESSMENT COMPLETED IN PAST YEAR FOR COPD 12/05/2023 2022 Albumin/Creatinine Ratio 01/09/2025 01/09/2022 Colonoscopy 02/19/2028 02/18/2018, 02/01, 06/05/2017 Colorectal Cancer Screening 02/19/2028 DTaP,Tdap,and Td Vaccines (4 - Td or Tdap) 07/12/2032 07/12/2022, 08/23/2009, 08/23/2009 Zoster Vaccines Completed 04/24/2018, 11/07/2017 Pneumococcal Vaccine: 65+ Years Completed 05/15/2019, 11/07/2017 LUNG CANCER SCREENING - USE SMARTSET [id number] Completed 01/18/2022 Influenza Vaccine (FLU shot) Completed 05/2022, 11/24/2019, 11/28/2018 GARDASIL-HPV IMMUNIZATION SERIES Aged Out No longer eligible based on patient's age to complete this topic Hepatitis B Aged Out No longer eligi ble based on patient's age to complete this topic MENINGOCOCCAL (MENACTRA/MENVEO) Aged Out No longer eligible based on patient's age to complete this topic documented as of this encounter Medical Devices Not on filedocumented as of this encounter Procedures Procedure Name Priority Date/Time Associated Diagnosis Comments CARDIOLOGY SCANNED RESULT 02/19/2023 documented in this encounter Results * CARDIOLOGY SCANNED RESULT (02/19/2023) 02/19/2023 Ramon JORDAN documented in this encounter Advance Directives Latest Code Status on File Code Status Date Activated Date Inactivated Comments Full Code 04/14/2018 9:56 AM 04/17/2018 2:37 PM Question Answer Comments Discussion of Advance Direct molly occurred with: Not Discussed Does the patient have a Living Will? No Does the patient have Health Care Power of Hand Dry Cleaner? No Code Status History Code Status Date Activated Date Inactivated Comments Full Code 04/14/2018 6:10 AM 04/14/2018 9:56 AM Question Answer Comments Discussion of Advance Directives occurred with: Not Discussed Does the patient have a Living Will? No Does the patient have Health Care Power of Hand Dry Cleaner? No Full Code 12/22/2017 6:13 PM 12/24/2017 2:29 PM Thi s order reflects the patients wishes and were consensually agreed upon. Question Answer Comments Discussion of Advance Directives occurred with: Not Discussed Does the patient have a Living Will? Yes, not currently available Does the patient have Health Care Power of Hand Dry Cleaner? Yes, not currently available Care Teams Food Assembler Relationship Specialty Start Date End Date Gail Easley MD [address] [place] [address] PCP - General Internal Medicine 05/15/19 documented as of this encounter
--- OUTSIDE RECORDS SUMMARY | 2023-06-12 09:34 | External Medical Summary | Summary of Care ---
Author Name Unknown Organization [facility] Address [address] [place] [address] Phone [phone] Care Team Providers Care Hooker Laster Name Role Phone Gail Easley MD Primary Care Provider + Encounter Details Date Type Department Care Team ([facility] st Contact Info) Description 05/28/2023 Result Scan Unspecified Department Ramon Walter, [address] [place] [address] <No scans attached> Allergies Active Allergy Reactions Criticality Noted Date Comments Sulfa Antibiotics 02/21/1998 erythema multiforme documented as of this encounter (statuses as of 05/28/2023) Medications Medication Sig Dispensed Refills Start Date End Date Status ASPIRIN 81 MG PO CHEWIndications:Sinoat rial node dysfunction (HCC) One pill by mouth once a day with food 100 5 10/21/2008 Active Naproxen Sodium 220 MG Oral Tablet Take 2 Tablets by mouth daily as needed for Pain. 0 Active Metoprolol Succinate ER 100 MG Oral Tablet Extended Release 24 Hour (toPROL XL)Indications:PAT (paroxysmal atrial tachycardia) (HCC),Paroxysmal atrial fibrillation (HCC) TAKE 1 TABLET BY MOUTH ONCE DAILY 90 Tablet 3 12/17/2022 Active Atorvastatin Calcium 40 MG Oral Tablet (Lipitor)Indications:D yslipidemia, goal LDL below 100 TAKE 1 TABLET BY MOUTH ONCE DAILY 90 Tablet 3 04/23/2023 Active documented as of this encounter (statuses as of 05/28/2023) Active Problems Problem Noted Date Diagnosed Date COPD, group A, by GOLD 2017 classification 03/11 Overview: Per COPD GOLD Classification Pulmonary emphysema 2022 Atherosclerosis of coronary artery of [place] heart without angina pectoris 2022 PAT (paroxysmal [...] as of this encounter (statuses as of 05/28/2023) Resolved Problems Problem Noted Date Diagnosed Date Resolved Date Prediabetes 12/14/2019 08/16/2022 Overview: Per Prediabetes protocol PAT (paroxysmal atrial tachycardia) 07/13/2015 12/13/2021 Overview: More specified condition of afib on pl Positional lightheadedness 07/13/2015 0 11/07/2017 Atrial fibrillation 03/10/2009 10/30/19 17 Shortness of breath 11/23/2008 10/30/19 17 Malaise and fatigue 11/23/2008 10/30/19 17 documented as of this encounter (statuses as of 05/28/2023) Immunizations Name Administration Dates Next Due COVID-19 [...] Care Team (Late st Contact Info) Description 07/16/2023 8:20 AM EDT Office Visit General Internal Medicine [facility] [place] [address] [place] [address] Gail Easley MD [address] [facility] [place] [address] 07/24/2023 8:00 AM EDT Nurse Only Ancillary [facility] [place] [address] [facility] [place] [address] Im, Nurse Annual Wellness [facility] [address] [place] [address] [address] Health Maintenance Due Date Last Done Comments DISCUSS TOBACCO CESSATION (REFER TO SMARTSET #3297) 1950 Alpha-1 Antitrypsin 12/03/1969 Cologuard 12/03/1996 Fecal Occult Blood Test 12/03/1996 Sigmoidoscopy 12/03/1996 COVID-19 Vaccine ( season) 2022 01/18/2022, 06/06/2020, 05/09/2020 *COPD SEVERITY VERIFIED BY PFT 12/07/2022 Depression Screening 07/13/2023 07/12/2022 GFR 12/05/2023 2022, 07/02, 01/09/2022, Additional history exists O2 ASSESSMENT COMPLETED IN PAST YEAR FOR COPD 03/14/2024 03/14/2023 Albumin/Creatinine Ratio 01/09/2025 01/09/2022 Colonoscopy 02/19/2028 02/18/2018, 02/01, 06/05/2017 Colorectal Cancer Screening 02/19/2028 DTaP,Tdap,and Td Vaccines (4 - Td or Tdap) 07/12/2032 07/12/2022, 08/23/2009, 08/23/2009 Zoster Vaccines Completed 04/24/2018, 11/07/2017 Pneumococcal Vaccine: 65+ Years Completed 05/15/2019, 11/07/2017 LUNG CANCER SCREENING - USE SMARTSET [id number] Completed 01/18/2022 Influenza Vaccine (FLU shot) Completed [...] Date/Time Associated Diagnosis Comments CARDIOLOGY SCANNED RESULT 05/28/2023 documented in this encounter Results * CARDIOLOGY SCANNED RESULT (05/28/2023) 05/28/2023 Ramon Walter DO OTHER documented in this encounter Advance Directives Latest Code Status on File Code Status Date Activated Date Inactivated Comments Full Code 04/14/2018 9:56 AM 04/17/2018 2:37 PM Question Answer Comments Discussion of Advance Direct molly occurred with: Not Discussed Does the patient have a Living Will? No Does the patient have Health Care Power of Cold Roll Inspector? No Code Status History Code Status Date Activated Date Inactivated Comments Full Code 04/14/2018 6:10 AM 04/14/2018 9:56 AM Question Answer Comments Discussion of Advance Directives occurred with: Not Discussed Does the patient have a Living Will? No Does the patient have Health Care Power of Cold Roll Inspector? No Full Code 12/22/2017 6:13 PM 12/24/2017 2:29 PM Thi s order reflects the patients wishes and were consensually agreed upon. Question Answer Comments Discussion of Advance Directives occurred with: Not Discussed Does the patient have a Living Will? Yes, not currently available Does the patient have Health Care Power of Cold Roll Inspector? Yes, not currently available Care Teams Hooker Laster Relationship Specialty Start Date End Date Gail Easley MD [address] [place] [address] PCP - General Internal Medicine 05/15/19 documented as of this encounter
--- OUTSIDE RECORDS SUMMARY | 2023-06-12 09:34 | External Medical Summary | Summary of Care ---
Author Name Unknown Organization [facility] Address [address] [place] [address] Phone [phone] Care Team Providers Care Arson Investigator Name Role Phone Gail Easley MD Primary Care Provider + Reason for Visit * Reason Onset Date Comments Appointment 02/06/2023 Encounter Details Date Type Department Care Team ([facility] Contact Info) Description 02/06/2023 Telephone Cardiology, [facility] [address] [place] [address] [place] [address] [place] [address] Appointment Allergies Active Allergy Reactions Criticality Noted Date Comments Sulfa Antibiotics 02/21/1998 erythema multiforme documented as of this encounter (statuses as of 02/06/2023) Medications Medication Sig Dispensed Refills Start Date [...] as of this encounter (statuses as of 02/06/2023) Active Problems Problem Noted Date Diagnosed Date Pulmonary emphysema 2022 Atherosclerosis of coronary artery of [place] heart without angina pectoris 2022 PAT (paroxysmal [...] as of this encounter (statuses as of 02/06/2023) Resolved Problems Problem Noted Date Diagnosed Date Resolved Date Prediabetes 12/14/2019 08/16/2022 Overview: Per Prediabetes protocol PAT (paroxysmal atrial tachycardia) 07/13/2015 12/13/2021 Overview: More specified condition of afib on pl Positional lightheadedness 07/13/2015 0 11/07/2017 Atrial fibrillation 03/10/2009 10/30/19 17 Shortness of breath 11/23/2008 10/30/19 17 Malaise and fatigue 11/23/2008 10/30/19 17 documented as of this encounter (statuses as of 02/06/2023) Immunizations Name Administration Dates Next Due COVID-19 mRNA, LNP-s, No Pre serve, 2-Dose Series (Moderna) 06/06/2020,05/09/2020 Covid-19, Mrna, Lnp-s, Pf, B ivalent, 30 Mcg, IM, 12 yrs and above (Pfizer) 01/18/2022 Pneumococcal Conjugate Vacc, 13 Valent (Prevnar) 11/07/2017 Pneumococcal Polysaccharide PPV23 (Pneumovax) 05/15/2019,04/17/2018() SEASONAL INFLUENZA, PF, 6 M & Above, IM , (FLULAVAL or FLUZONE) 11/28/2018,04/17/2018(Deferred: - dr. sánchez is aware) Season Influenza, Quad, PF, Adjuvanted, 65+ Yrs, IM (FLUAD) 11/24/2019 Seasonal Influenza, Quadriva lent Hd (Fluzone Hd) [...] No 04/14/2018 documented as of this encounter Miscellaneous Notes * Telephone Encounter - Nyasia Smith LPN - 02/06/2023 12:20 PM EST Device clinic appointment for 02/14/2023 needing cancelled due to tech/rep being unavailable. Receiving routine remote monitoring. Last remote interrogation received 01/29/2023; 11 years on battery. At this time, will continue with remote monitoring until otherwise notified. Above information provided to patient during phone call documented in this encounter Plan of Treatment Upcoming Encounters Date Type Department Care Team (Late st Contact Info) Description 02/14/2023 8:30 AM EST Cardiac Studies Cardiology, [facility] [address] [facility] [address] [place] [address] [place], [facility] [address] [facility] [address] [place] [address] 03/14/2023 8:00 AM EST Office Visit General Internal Medicine [facility] [place] [address] [place] [address] Gail Easley MD [address] [place] [address] [address] 03/22/2023 10:45 AM EST Office Visit General Surgery, [place] [address] [place] [address] Larry Stringer MD [address] [place] [address] 07/16/2023 8:20 AM EDT Office Visit General Internal Medicine [facility] [address] [facility] [place] [address] Gail Easley MD [address] [facility] [place] [address] 07/24/2023 8:00 AM EDT Nurse Only Ancillary [facility] [address] [facility] [place] [address] Im, Nurse Annual Wellness [facility] [address] [facility] [place] [address] Health Maintenance Due Date Last Done Comments DISCUSS TOBACCO CESSATION (REFER TO SMARTSET #329) 1950 Alpha-1 Antitrypsin 12/03/1969 Cologuard 12/03/1996 Fecal [...] 11/07/2017 LUNG CANCER SCREENING - USE SMARTSET [id number] Completed 01/18/2022 Influenza Vaccine (FLU shot) Completed [...] Not on filedocumented as of this encounter Advance Directives Latest Code Status on File Code Status Date Activated Date Inactivated Comments Full Code 04/14/2018 9:56 AM 04/17/2018 2:37 PM Question Answer Comments Discussion of Advance Direct molly occurred with: Not Discussed Does the patient have a Living Will? No Does the patient have Health Care Power of Manager Environmental Health And Safety? No Code Status History Code Status Date Activated Date Inactivated Comments Full Code 04/14/2018 6:10 AM 04/14/2018 9:56 AM Question Answer Comments Discussion of Advance Directives occurred with: Not Discussed Does the patient have a Living Will? No Does the patient have Health Care Power of Manager Environmental Health And Safety? No Full Code 12/22/2017 6:13 PM 12/24/2017 2:29 PM Thi s order reflects the patients wishes and were consensually agreed upon. Question Answer Comments Discussion of Advance Directives occurred with: Not Discussed Does the patient have a Living Will? Yes, not currently available Does the patient have Health Care Power of Manager Environmental Health And Safety? Yes, not currently available Care Teams Arson Investigator Relationship Specialty Start Date End Date Gail Easley MD [address] [facility] [place] [address] PCP - General Internal Medicine 05/15/19 documented as of this encounter
--- OUTSIDE RECORDS SUMMARY | 2023-06-12 09:34 | External Medical Summary | Summary of Care ---
Author Name Unknown Organization [facility] Address [address] [place] [address] Phone [phone] Care Team Providers Care Chlorination Operator Name Role Phone Gail Easley MD Primary Care Provider + Reason for Visit * Reason Comments NEW PATIENT 5 yr colonoscopy Encounter Details Date Type Department Care Team ([facility] st Contact Info) Description 03/28/2023 11:15 AM EST Office Visit General Surgery, [place] [address] [place] [address] Larry Stringer MD [address] [place] [address] History of colonic polyps* Allergies Active Allergy Reactions Criticality Noted Date Comments Sulfa Antibiotics 02/21/1998 erythema multiforme documented as of this encounter (statuses as of 04/01/2023) Medications Medication Sig Dispensed Refills Start Date [...] as of this encounter (statuses as of 04/01/2023) Active Problems Problem Noted Date Diagnosed Date COPD, group A, by GOLD 2017 classification 03/11 Overview: Per COPD GOLD Classification Pulmonary emphysema 2022 Atherosclerosis of coronary artery of [place] heart without angina pectoris 2022 PAT (paroxysmal [...] as of this encounter (statuses as of 04/01/2023) Resolved Problems Problem Noted Date Diagnosed Date Resolved Date Prediabetes 12/14/2019 08/16/2022 Overview: Per Prediabetes protocol PAT (paroxysmal atrial tachycardia) 07/13/2015 12/13/2021 Overview: More specified condition of afib on pl Positional lightheadedness 07/13/2015 0 11/07/2017 Atrial fibrillation 03/10/2009 10/30/19 17 Shortness of breath 11/23/2008 10/30/19 17 Malaise and fatigue 11/23/2008 10/30/19 17 documented as of this encounter (statuses as of 04/01/2023) Immunizations Name Administration Dates Next Due COVID-19 mRNA, LNP-s, No Pre serve, 2-Dose Series (Moderna) 06/06/2020,05/09/2020 Covid-19, Mrna, Lnp-s, Pf, B ivalent, 30 Mcg, IM, 12 yrs and above (Avinger) 01/18/2022 Pneumococcal Conjugate Vacc, 13 Valent (Prevnar) [...] Cigarettes 0.5 47 Cigars Smokeless Tobacco: Never Tobacco Cessation:Ready to Q uit: Not Asked; Counseling Given: Not Answered Alcohol Use Standard Drinks/Week Comments Yes 0 [...] on file documented as of this encounter Last Filed Vital Signs Vital Sign Reading Time Taken Comments Blood Pressure 120/77 03/28/2023 11:10 AM EST Pulse 87 03/28/2023 11:10 AM EST Temperature 37.3 C (99.1 F) 03/28/2023 11:[address] Respiratory Rate - - Oxygen Saturation - - Inhaled Oxygen Concentration - - Weight 71 kg (156 lb 8 oz) 03/28/2023 11:[address] Height 182.9 cm (6') 03/28/2023 11:10 AM EST Body Mass Index 21.23 03/28/2023 11:10 AM EST documented in this encounter Functional Status Functional Status Response [...] No 04/14/2018 documented as of this encounter Progress Notes * Emigdio Groves MD - 03/28/2023 11:35 AM EST COLORECTAL SURGERY [facility] Arturo Diego [id number] 03/28/2023 Cc: 5 year colonoscopy HPI: Arturo Caraballo Johnathon is a 72 year old male referred by Gail Easley MD who presents in clinic for discussion of 5 year colonoscopy. The patient has a history of diverticulitis and is status post hand assisted laparoscopic low anterior resection on 04/14/2018. Pathology was as follows: A. Anastomotic rings, excision: Colonic tissue with no pathologic diagnosis. B. Sigmoid colon and upper rectum, resection: Chronic diverticulitis with focal fibrosis as well as colonic diverticulosis. He was last seen in our office on 04/19/2018 and was instructed to follow up as needed and follow a high fiber diet. Since he was last seen, he had his pacemaker was replaced at [facility]. He smokes 3 packs a week for 50 years. Today he reports he is feeling good. He has regular bowel movements, tolerating po intake, and is active. He takes 81mg aspirin. He denies fever, chills, night sweats, unintentional weight loss, hematochezia. Last Colonoscopy: 02/18/2018 Findings: The perianal and digital rectal examinations were normal. An area of moderately congested mucosa was found in the sigmoid colon. The colon also demonstrated restricted mobility in this area. This was consistent with the patient's history of recent diverticulitis. A 3 mm polyp was found in the sigmoid colon. The polyp was removed with a jumbo cold forceps. Resection and retrieval were complete. Multiple small and large-mouthed diverticula were found in the sigmoid colon and descending colon. Impression: - Congested mucosa in the sigmoid colon. - One 3 mm polyp in the sigmoid colon, removed with a jumbo cold forceps. Resected and retrieved. Review of Systems: Review of Systems Constitutional: Negative. HENT: Negative. Eyes: Negative. Respiratory: Negative. Cardiovascular: Negative. Gastrointestinal: As per hpi Endocrine: Negative. Genitourinary: Negative. Musculoskeletal: Negative. Skin: Negative. Allergic/Immunologic: Negative. Neurological: Negative. Hematological: Negative. Psychiatric/Behavioral: Negative. All other systems reviewed and are negative. All other systems reviewed and negative. Past Medical History: Diagnosis Date Atrial fibrillation (HCC) 03/10/2009 Cardiac pacemaker in situ 10/10 HTN, goal to be determined Positional lightheadedness 07/13/2015 shoulder 1980 Left Past Surgical History: Procedure Laterality Date COLONOSCOPY, DIAGNOSTIC (RECTUM) 06/05/2017 adenomatous polyps, diverticulosis, repeat 6 mo/[facility] COLONOSCOPY, DIAGNOSTIC (RECTUM) N/A 02/18/2018 COLONOSCOPY FLEXIBLE PROXIMAL DIAGNOSTIC performed by Larry Stringer MD at ENDOSCOPY [facility] INSERT HEART ELECTRODE, DUAL CHAMBR 10/09/2008 Dual-Chamber pacemaker insertion using Medtronic 10/09/[address] Francois at [facility] LAPAROSCOPIC PARTIAL COLECTOMY W/COLOPROCTOSTOMY N/A 04/14/2018 LAPAROSCOPIC PARTIAL COLECTOMY WITH COLOPROCTOSTOMY performed by Larry Stringer MD at OR [facility] PACEMAKER INSERTION PER Left 09/29/2019 REMOVAL OF TONSILS, UNDER AGE 12 age 9 Tonsils Removal,<12 Y/O REPAIR INGUINAL HERNIA STRANGULATED, AGE 5 OR MORE Right Current Outpatient Medications Medication Sig Dispense Refill ASPIRIN 81 MG PO CHEW One pill by mouth once a day with food 100 5 Naproxen Sodium 220 MG Oral Tablet Take 2 Tablets by mouth daily as needed for Pain. Atorvastatin Calcium 40 MG Oral Tablet (Lipitor) TAKE 1 TABLET BY MOUTH ONCE DAILY 90 Tablet 3 Metoprolol Succinate ER 100 MG Oral Tablet Extended Release 24 Hour (toPROL XL) TAKE 1 TABLET BY MOUTH ONCE DAILY 90 Tablet 3 No current facility-administered medications for this visit. Review of patient's allergies indicates: Allergen Reactions Sulfa Antibiotics erythema multiforme Family History Problem Relation Age of Onset Cancer Father age 49 - lung cancer Lung Disorder Mother age 60 pneumonia Social History Tobacco Use Smoking status: Every Day Packs/day: 0.50 Years: 47.00 Additional pack years: 0.00 Total pack years: 23.50 Types: Cigarettes, Cigars Smokeless tobacco: Never Vaping Use Vaping Use: Never used Substance Use Topics Alcohol use: Yes Comment: 3 beers per week Drug use: No Physical Examination: BP 120/77 | Pulse 87 | Temp 37.3 C (99.1 F) (Tympanic) | Ht 1.829 m (6') | Wt 71 kg (156 lb 8 oz) | BMI 21.23 kg/m | BSA 1.9 m Gen: No acute distress Neck: Full ROM, no lymphadenopathy Neuro: Motor and sensation grossly intact Lungs: CTAB Heart: RRR Extremities: No edema Skin: Complete exam not performed, but no obvious concerning lesions Abdomen: Soft, non-tender, non-distended, no hernias, no hepatomegaly, no splenomegaly. No abnormal, audible bowel sounds. Labs: Reviewed Radiology: Reviewed Assessment: Arturo Diego is a 72 year old male with a history of diverticulitis and is status post hand assisted laparoscopic low anterior resection on 04/14/2018. -Plan for colonoscopy Patient seen and evaluated with Dr. Myke Delgado MD ATTENDING ADDENDUM: I have discussed the patient's management with the medical trainee and agree with the note. Please refer to the documented findings and plan of care. This patient's visit today consisted of an evaluation. I was present and confirmed the findings of the history and exam. History and exam as above. He is due for colonoscopy. He prefers to have this done closer to his home and we will try to help get this arranged at [facility]. Follow up with me PRN. Larry Stringer MD Colorectal Surgery documented in this encounter Plan of Treatment Upcoming Encounters Date Type Department Care Team (Late st Contact Info) Description 07/16/2023 8:20 AM EDT Office Visit General Internal Medicine [facility] [address] [place] [address] Gail Easley MD [address] [facility] [place] [address] 07/24/2023 8:00 AM EDT Nurse Only Ancillary [facility] [place] [address] [facility] [place] [address] Im, Nurse Annual Wellness [facility] [address] [facility] [place] [address] Scheduled Orders Name Type Priority Associated Diagnoses Orde r Schedule COLONOSCOPY, DIAGNOSTIC (RECTUM) Procedures Routine History of colonic polyps Ordered: 03/28/2023 Health Maintenance Due Date Last Done Comments [...] 11/07/2017 LUNG CANCER SCREENING - USE SMARTSET 06018 Completed 01/18/2022 Influenza Vaccine (FLU shot) Completed [...] Not on filedocumented as of this encounter Visit Diagnoses Diagnosis History of colonic polyps- Primary Personal history of colonic polyps documented in this encounter Advance Directives Latest Code Status on File Code Status Date Activated Date Inactivated Comments Full Code 04/14/2018 9:56 AM 04/17/2018 2:37 PM Question Answer Comments Discussion of Advance Direct molly occurred with: Not Discussed Does the patient have a Living Will? No Does the patient have Health Care Power of Occ Therapy Asst? No Code Status History Code Status Date Activated Date Inactivated Comments Full Code 04/14/2018 6:10 AM 04/14/2018 9:56 AM Question Answer Comments Discussion of Advance Directives occurred with: Not Discussed Does the patient have a Living Will? No Does the patient have Health Care Power of Occ Therapy Asst? No Full Code 12/22/2017 6:13 PM 12/24/2017 2:29 PM Thi s order reflects the patients wishes and were consensually agreed upon. Question Answer Comments Discussion of Advance Directives occurred with: Not Discussed Does the patient have a Living Will? Yes, not currently available Does the patient have Health Care Power of Occ Therapy Asst? Yes, not currently available Care Teams Chlorination Operator Relationship Specialty Start Date End Date Gail Easley MD [address] [facility] [place] [address] PCP - General Internal Medicine 05/15/19 documented as of this encounter"
--- OUTSIDE RECORDS SUMMARY | 2023-06-12 09:34 | External Medical Summary | Summary of Care ---
Author Name Unknown Organization [facility] Address [address] [place] [address] Phone [phone] Care Team Providers Care Equip Maint Eng Name Role Phone Gail Easley MD Primary Care Provider + Reason for Visit * Reason Comments eRx-Medication Refill Encounter Details Date Type Department Care Team (Late st Contact Info) Description 04/19/2023 Refill Cardiology, [facility] [address] [facility] [address] Ramon Eli, DO [address] [facility] [address] Dyslipidemia, goal LDL below 100 Allergies Active Allergy Reactions Criticality Noted Date Comments Sulfa Antibiotics 02/21/1998 erythema multiforme documented as of this encounter (statuses as of 04/23/2023) Medications Medication Sig Dispensed Refills Start Date End Date Status ASPIRIN 81 MG PO CHEWIndications:Si noatrial node dysfunction (HCC) One pill by mouth once a day with food 100 5 10/21/2008 Active Naproxen Sodium 220 MG Oral Tablet Take 2 Tablets by mouth daily as needed for Pain. 0 Active Metoprolol Succinate ER 100 MG Oral Tablet Extended Release 24 Hour (toPROL XL)Indications:PAT (paroxysmal atrial tachycardia),Parox ysmal atrial fibrillation (HCC) TAKE 1 TABLET BY MOUTH ONCE DAILY 90 Tablet 3 12/17/2022 Active Atorvastatin Calcium 40 MG Oral Tablet (Lipitor)Indicatio ns:Dyslipidemia, goal LDL below 100 TAKE 1 TABLET BY MOUTH ONCE DAILY 90 Tablet 3 04/23/2023 Active Atorvastatin Calcium 40 MG Oral Tablet (Lipitor)Indicatio ns:Dyslipidemia, goal LDL below 100 TAKE 1 TABLET BY MOUTH ONCE DAILY 90 Tablet 3 04/06/2022 04/23/2023 Discontinued documented as of this encounter (statuses as of 04/23/2023) Active Problems Problem Noted Date Diagnosed Date COPD, group A, by GOLD 2017 classification 03/11 Overview: Per COPD GOLD Classification Pulmonary emphysema 2022 Atherosclerosis of coronary artery of [place] heart without angina pectoris 2022 PAT (paroxysmal [...] as of this encounter (statuses as of 04/23/2023) Resolved Problems Problem Noted Date Diagnosed Date Resolved Date Prediabetes 12/14/2019 08/16/2022 Overview: Per Prediabetes protocol PAT (paroxysmal atrial tachycardia) 07/13/2015 12/13/2021 Overview: More specified condition of afib on pl Positional lightheadedness 07/13/2015 0 11/07/2017 Atrial fibrillation 03/10/2009 10/30/19 17 Shortness of breath 11/23/2008 10/30/19 17 Malaise and fatigue 11/23/2008 10/30/19 17 documented as of this encounter (statuses as of 04/23/2023) Immunizations Name Administration Dates Next Due COVID-19 [...] encounter Miscellaneous Notes * Telephone Encounter - Ramon Eli DO - 04/23/2023 12:02 PM ESTSigned Prescriptions: Disp Refills Atorvastatin Calcium 40 MG Oral Tablet (Li*90 Tab*3 Sig: TAKE 1 TABLET BY MOUTH ONCE DAILY Authorizing Provider: RAMON ELI * Telephone Encounter - Madhuri, E-Rx Ss Inbound - 04/23/2023 9:57 AM EST Pending Prescriptions: Disp Refills Atorvastatin Calcium 40 MG Oral Tablet (Li*90 Tab*3 Sig: TAKE 1 TABLET BY MOUTH ONCE DAILY * Telephone Encounter - Interface, E-Rx Ss Inbound - 04/21/2023 9:57 AM EST Pending Prescriptions: Disp Refills Atorvastatin Calcium 40 MG Oral Tablet (Li*90 Tab*3 Sig: TAKE 1 TABLET BY MOUTH ONCE DAILY * Telephone Encounter - Amisha Johnson CMA - 04/19/2023 12:21 PM ESTPending Prescriptions: Disp Refills Atorvastatin Calcium 40 MG Oral Tablet (Li*90 Tab*3 Sig: TAKE 1 TABLET BY MOUTH ONCE DAILY * Telephone Encounter - Amisha Johnson CMA - 04/19/2023 12:19 PM EST Did you pend patient's preferred pharmacy and medication before forwarding?yes Pharmacy: [id number] Pending Prescriptions: Disp Refills Atorvastatin Calcium 40 MG Oral Tablet (L*90 Tab*3 Sig: TAKE 1 TABLET BY MOUTH ONCE DAILY Last Visit: 08/01/2022 (in office), Visit date not found (telemedicine) Next Visit: Visit date not found If no future appointments scheduled, and last appointment is greater than a year ago, please schedule patient for a follow-up appointment Last date the medication was ordered: 04/06/22 Is this request for a controlled substance?No Urine Drug Screen:No results found for this or any previous visit. Patient Phone Numbers Labs: Lab Results Component Value Date/Time CREAT 0.9 2022 09:13 AM CREAT 0.9 11/24/2019 09:11 AM POTASSIUM 4.7 2022 09:13 AM POTASSIUM 4.8 11/24/2019 09:11 AM TSH 1.63 2022 09:13 AM TSH 1.02 05/02/2017 03:34 PM LDLCALC 90 07/12/2022 10:03 AM LDLCALC 81 11/24/2019 09:11 AM LDLDIRECT 113 01/09/2022 03:32 PM LDLDIRECT 90 05/15/2019 09:19 AM ALT 17 2022 09:13 AM ALT 26 11/24/2019 09:11 AM HGBA1C 5.5 2022 09:13 AM HGBA1C 5.7 (H) 11/24/2019 09:11 AM documented in this encounter Plan of Treatment Upcoming Encounters Date Type Department Care Team (Late st Contact Info) Description 07/16/2023 8:20 AM EDT Office Visit General Internal Medicine [facility] [place] [address] [place] [address] Gail Easley MD [facility] [place] [address] 07/24/2023 8:00 AM EDT Nurse Only Ancillary [facility] [address] [place] [address] [address] Im, Nurse Annual Wellness [facility] [address] [place] [address] [address] Health Maintenance Due Date Last Done Comments DISCUSS TOBACCO CESSATION (REFER TO SMARTSET #4513) 1950 Alpha-1 Antitrypsin 12/03/1969 Cologuard 12/03/1996 Fecal [...] 11/07/2017 LUNG CANCER SCREENING - USE SMARTSET 68939 Completed 01/18/2022 Influenza Vaccine (FLU shot) Completed [...] as of this encounter Visit Diagnoses Diagnosis Dyslipidemia, goal LDL below 100 Other and unspecified hyperlipidemia documented in this encounter Advance Directives Latest Code Status on File Code Status Date Activated Date Inactivated Comments Full Code 04/14/2018 9:56 AM 04/17/2018 2:37 PM Question Answer Comments Discussion of Advance Direct molly occurred with: Not Discussed Does the patient have a Living Will? No Does the patient have Health Care Power of Carpet Journeyman? No Code Status History Code Status Date Activated Date Inactivated Comments Full Code 04/14/2018 6:10 AM 04/14/2018 9:56 AM Question Answer Comments Discussion of Advance Directives occurred with: Not Discussed Does the patient have a Living Will? No Does the patient have Health Care Power of Carpet Journeyman? No Full Code 12/22/2017 6:13 PM 12/24/2017 2:29 PM Thi s order reflects the patients wishes and were consensually agreed upon. Question Answer Comments Discussion of Advance Directives occurred with: Not Discussed Does the patient have a Living Will? Yes, not currently available Does the patient have Health Care Power of Carpet Journeyman? Yes, not currently available Care Teams Equip Maint Eng Relationship Specialty Start Date End Date Gail Easley MD [address] [place] [address] PCP - General Internal Medicine 05/15/19 documented as of this encounter
--- OUTSIDE RECORDS SUMMARY | 2023-06-12 09:34 | External Medical Summary | Summary of Care ---
Author Name Unknown Organization [facility] Address [address] [place] [address] Phone [phone] Care Team Providers Care Aerospace Stress Engineer Name Role Phone Gail Easley MD Primary Care Provider + Reason for Visit * Reason Onset Date Comments Procedure 01/01/2023 Encounter Details Date Type Department Care Team ([facility] Contact Info) Description 01/01/2023 Telephone General Surgery, [place] [address] [place] [address] Larry Stringer MD [address] [place] [address] Procedure Allergies Active Allergy Reactions Criticality Noted Date Comments Sulfa Antibiotics 02/21/1998 erythema multiforme documented as of this encounter (statuses as of 01/14/2023) Medications Medication Sig Dispensed Refills Start Date [...] as of this encounter (statuses as of 01/14/2023) Active Problems Problem Noted Date Diagnosed Date Pulmonary emphysema 2022 Atherosclerosis of coronary artery of [place] heart without angina pectoris 2022 PAT (paroxysmal [...] as of this encounter (statuses as of 01/14/2023) Resolved Problems Problem Noted Date Diagnosed Date Resolved Date Prediabetes 12/14/2019 08/16/2022 Overview: Per Prediabetes protocol PAT (paroxysmal atrial tachycardia) 07/13/2015 12/13/2021 Overview: More specified condition of afib on pl Positional lightheadedness 07/13/2015 0 11/07/2017 Atrial fibrillation 03/10/2009 10/30/19 17 Shortness of breath 11/23/2008 10/30/19 17 Malaise and fatigue 11/23/2008 10/30/19 17 documented as of this encounter (statuses as of 01/14/2023) Immunizations Name Administration Dates Next Due COVID-19 [...] encounter Miscellaneous Notes * Telephone Encounter - Concepción Mohan OSA - 01/14/2023 1:10 PM EST 2 nd attempt to contact pt- I will send a letter * Telephone Encounter - Concepción Mohan OSA - 01/01/2023 10:07 AM EDT Left message- called patient to see if he is ready to schedule his [address] Stringer. documented in this encounter Plan of Treatment Upcoming Encounters Date Type Department Care Team (Late st Contact Info) Description 02/01/2023 1:45 PM EST [facility] [address] [facility] [place] [address] 02/14/2023 8:30 AM EST Cardiac Studies Cardiology, [facility] [address] [facility] [place] [address] [facility] [address] [facility] [place] [address] 03/14/2023 8:00 AM EST Office Visit General Internal Medicine [facility] [address] [facility] [place] [address] Gail Easley MD [address] [facility] [address] [place], [place] [address] 04/08/2023 1:30 PM EST Office Visit Dermatology [facility] [place] [address] [facility] [address] [place], [place] [address] Radha Steele MD [address] [facility] [address] [place] [address] 07/16/2023 8:20 AM EDT Office Visit General Internal Medicine [facility] [place] [address] [facility] [address] [place], [place] [address] Gail Easley MD [address] [facility] [address] [place] [address] 07/24/2023 8:00 AM EDT Nurse Only Ancillary [facility] [address] [facility] [address] [place], [place] [address] Im, Nurse Annual Wellness [facility] [address] [facility] [address] [place] [address] Health Maintenance Due Date Last Done Comments DISCUSS TOBACCO CESSATION (REFER TO SMARTSET #8122) 1950 Alpha-1 Antitrypsin 12/03/1969 Cologuard 12/03/1996 Fecal [...] 11/07/2017 LUNG CANCER SCREENING - USE SMARTSET 83675 Completed 01/18/2022 Influenza Vaccine (FLU shot) Completed [...] the patient have Health Care Power of Frame Stripper And Crusher? No Code Status History Code Status Date Activated Date Inactivated Comments Full Code 04/14/2018 6:10 AM 04/14/2018 9:56 AM Question Answer Comments Discussion of Advance Directives occurred with: Not Discussed Does the patient have a Living Will? No Does the patient have Health Care Power of Frame Stripper And Crusher? No Full Code 12/22/2017 6:13 PM 12/24/2017 2:29 PM Thi s order reflects the patients wishes and were consensually agreed upon. Question Answer Comments Discussion of Advance Directives occurred with: Not Discussed Does the patient have a Living Will? Yes, not currently available Does the patient have Health Care Power of Frame Stripper And Crusher? Yes, not currently available Care Teams Aerospace Stress Engineer Relationship Specialty Start Date End Date Gail Easley MD [address] [place] [address] PCP - General Internal Medicine 05/15/19 documented as of this encounter
--- OUTSIDE RECORDS SUMMARY | 2023-06-12 09:34 | External Medical Summary | Summary of Care ---
Author Name Unknown Organization [facility] Address [address] [place] [address] Phone [phone] Care Team Providers Care Executive Creative Director Name Role Phone Gail Easley MD Primary Care Provider + Reason for Visit * Reason Onset Date Comments Procedure 03/28/2023 Encounter Details Date Type Department Care Team ([facility] Contact Info) Description 03/28/2023 Telephone General Surgery, [facility] [address] [place], [place] [id number] Larry Stringer MD [address], [place] [id number] Procedure Allergies Active Allergy Reactions Criticality Noted Date Comments Sulfa Antibiotics 02/21/1998 erythema multiforme documented as of this encounter (statuses as of 03/28/2023) Medications Medication Sig Dispensed Refills Start Date [...] as of this encounter (statuses as of 03/28/2023) Active Problems Problem Noted Date Diagnosed Date COPD, group A, by GOLD 2017 classification 03/11 Overview: Per COPD GOLD Classification Pulmonary emphysema 2022 Atherosclerosis of coronary artery of [place] heart without angina pectoris 2022 PAT (paroxysmal [...] as of this encounter (statuses as of 03/28/2023) Resolved Problems Problem Noted Date Diagnosed Date Resolved Date Prediabetes 12/14/2019 08/16/2022 Overview: Per Prediabetes protocol PAT (paroxysmal atrial tachycardia) 07/13/2015 12/13/2021 Overview: More specified condition of afib on pl Positional lightheadedness 07/13/2015 0 11/07/2017 Atrial fibrillation 03/10/2009 10/30/19 17 Shortness of breath 11/23/2008 10/30/19 17 Malaise and fatigue 11/23/2008 10/30/19 17 documented as of this encounter (statuses as of 03/28/2023) Immunizations Name Administration Dates Next Due COVID-19 [...] encounter Miscellaneous Notes * Telephone Encounter - Neeru Lundberg LPN - 03/28/2023 9:18 AM EST Patient called and LMOM the we can get him scheduled for a colonoscopy and follow up with Dr. Stringer after his procedure. documented in this encounter Plan of Treatment Upcoming Encounters Date Type Department Care Team (Late st Contact Info) Description 03/28/2023 11:15 AM EST Office Visit General Surgery, [facility] [address] [place] [address] Larry Stringer MD [address] [place] [address] 07/16/2023 8:20 AM EDT Office Visit General Internal Medicine [facility] [address] [place] [address] Gail Easley MD [address] [place] [address] 07/24/2023 8:00 AM EDT Nurse Only Ancillary [place] [facility] [address] [place] [address] [address] Im, Nurse Annual Wellness [place] [address] [place] [address] Health Maintenance Due Date Last Done Comments DISCUSS TOBACCO CESSATION (REFER TO SMARTSET #9410) 1950 Alpha-1 Antitrypsin 12/03/1969 Cologuard 12/03/1996 Fecal [...] 11/07/2017 LUNG CANCER SCREENING - USE SMARTSET 46837 Completed 01/18/2022 Influenza Vaccine (FLU shot) Completed [...] the patient have Health Care Power of Cane Pusher? No Code Status History Code Status Date Activated Date Inactivated Comments Full Code 04/14/2018 6:10 AM 04/14/2018 9:56 AM Question Answer Comments Discussion of Advance Directives occurred with: Not Discussed Does the patient have a Living Will? No Does the patient have Health Care Power of Cane Pusher? No Full Code 12/22/2017 6:13 PM 12/24/2017 2:29 PM Thi s order reflects the patients wishes and were consensually agreed upon. Question Answer Comments Discussion of Advance Directives occurred with: Not Discussed Does the patient have a Living Will? Yes, not currently available Does the patient have Health Care Power of Cane Pusher? Yes, not currently available Care Teams Executive Creative Director Relationship Specialty Start Date End Date Gail Easley MD [address] [place] [address] PCP - General Internal Medicine 05/15/19 documented as of this encounter
--- OUTSIDE RECORDS SUMMARY | 2023-06-12 09:34 | External Medical Summary | Summary of Care ---
Author Name Unknown Organization [facility] Address [address] [place] [address] Phone [phone] Care Team Providers Care Exterior Interior Specialist Name Role Phone Gail Easley MD Primary Care Provider + Reason for Visit * Reason Onset Date Comments Health Maintenance 04/12/2023 Encounter Details Date Type Department Care Team ([facility] st Contact Info) Description 04/12/2023 Telephone General Internal Medicine [facility] [address] [place] [address] Gail Easley MD [address] [place] [address] Health Maintenance Allergies Active Allergy Reactions Criticality Noted Date Comments Sulfa Antibiotics 02/21/1998 erythema multiforme documented as of this encounter (statuses as of 04/12/2023) Medications Medication Sig Dispensed Refills Start Date [...] as of this encounter (statuses as of 04/12/2023) Active Problems Problem Noted Date Diagnosed Date COPD, group A, by GOLD 2017 classification 03/11 Overview: Per COPD GOLD Classification Pulmonary emphysema 2022 Atherosclerosis of coronary artery of [place] heart without angina pectoris 2022 PAT (paroxysmal [...] as of this encounter (statuses as of 04/12/2023) Resolved Problems Problem Noted Date Diagnosed Date Resolved Date Prediabetes 12/14/2019 08/16/2022 Overview: Per Prediabetes protocol PAT (paroxysmal atrial tachycardia) 07/13/2015 12/13/2021 Overview: More specified condition of afib on pl Positional lightheadedness 07/13/2015 0 11/07/2017 Atrial fibrillation 03/10/2009 10/30/19 17 Shortness of breath 11/23/2008 10/30/19 17 Malaise and fatigue 11/23/2008 10/30/19 17 documented as of this encounter (statuses as of 04/12/2023) Immunizations Name Administration Dates Next Due COVID-19 mRNA, LNP-s, No Pre serve, 2-Dose Series (Moderna) 06/06/2020,05/09/2020 Covid-19, Mrna, Lnp-s, Pf, B ivalent, 30 Mcg, IM, 12 yrs and above ([employer]) 01/18/2022 Pneumococcal Conjugate Vacc, 13 Valent (Prevnar) [...] encounter Miscellaneous Notes * Telephone Encounter - Rosangela Guerra LPN - 04/12/2023 2:04 PM EST Care Gaps Comprehensive Care Outreach Last Office/Telemedicine Visit: 03/14/2023 (in office), Visit date not found (telemedicine) Next Office Visit: 07/16/2023 Hemoglobin AIC Results: Lab Results Component Value Date/Time HEMOGLOBIN A1C - [facility] 5.5 2022 09:13 AM HEMOGLOBIN A1C - [facility] 5.5 01/09/2022 03:32 PM HEMOGLOBIN A1C - [facility] 5.5 06/16/2020 08:19 AM HEMOGLOBIN A1C - [facility] 5.7 (H) 11/24/2019 09:11 AM HEMOGLOBIN A1C - [facility] 5.5 11/28/2018 08:55 AM BP Readings from Last 1 Encounters: 03/28/23 120/77 Reviewed Health Maintenance below: Health Maintenance Topic Date Due DISCUSS TOBACCO CESSATION (REFER TO SMARTSET #1367) Never done Alpha-1 Antitrypsin Never done COVID-19 Vaccine ( season) 2022 *COPD SEVERITY VERIFIED BY PFT Never done Depression Screening 07/13/2023 Awv already scheduled Care Gap Outreach Action Taken: Outreach not indicated documented in this encounter Plan of Treatment Upcoming Encounters Date Type Department Care Team (Late st Contact Info) Description 07/16/2023 8:20 AM EDT Office Visit General Internal Medicine [facility] [address] [place] [address] Gail Easley MD [address] [place] [address] 07/24/2023 8:00 AM EDT Nurse Only Ancillary [facility] [address] [place] [address] Im, Nurse Annual Wellness [facility] [address] [place] [address] Health Maintenance Due Date Last Done Comments [...] 11/07/2017 LUNG CANCER SCREENING - USE SMARTSET 74343 Completed 01/18/2022 Influenza Vaccine (FLU shot) Completed [...] the patient have Health Care Power of Chairman? No Code Status History Code Status Date Activated Date Inactivated Comments Full Code 04/14/2018 6:10 AM 04/14/2018 9:56 AM Question Answer Comments Discussion of Advance Directives occurred with: Not Discussed Does the patient have a Living Will? No Does the patient have Health Care Power of Chairman? No Full Code 12/22/2017 6:13 PM 12/24/2017 2:29 PM Thi s order reflects the patients wishes and were consensually agreed upon. Question Answer Comments Discussion of Advance Directives occurred with: Not Discussed Does the patient have a Living Will? Yes, not currently available Does the patient have Health Care Power of Chairman? Yes, not currently available Care Teams Exterior Interior Specialist Relationship Specialty Start Date End Date Gail Easley MD [address] [place] [address] PCP - General Internal Medicine 05/15/19 documented as of this encounter
--- OUTSIDE RECORDS SUMMARY | 2023-06-12 09:34 | External Medical Summary | Summary of Care ---
Author Name Unknown Organization [facility] Address [address] [place] [address] Phone [phone] Care Team Providers Care Padding Gluer Name Role Phone Gail Easley MD Primary Care Provider + Reason for Visit * Reason Comments Follow Up The pt stated he is here for a follow up appointment with Dr Easley. The pt denies any new issues at this time. Encounter Details Date Type Department Care Team (Latest Contact Info) Description 03/14/2023 8:00 AM EST Office Visit General Internal Medicine [facility] [address] [facility] [place] [address] Gail Easley MD [address] [place] [address] HTN, goal below 140/90*; Pulmonary emphysema, unspecified emphysema type (HCC); PAT (paroxysmal atrial tachycardia); Cardiac pacemaker in situ; COPD, group A, by GOLD 2017 classification ([facility]); Dyslipidemia, goal LDL below 100; Abdominal aortic aneurysm (AAA) without rupture, unspecified part ([facility]); Atherosclerosis of coronary artery of [place] heart without angina pectoris, unspecified vessel or lesion type; Paroxysmal atrial fibrillation ([facility]); Sinoatrial node dysfunction ([facility]); Tobacco use Allergies Active Allergy Reactions Criticality Noted Date Comments Sulfa Antibiotics 02/21/1998 erythema multiforme documented as of this encounter (statuses as of 03/14/2023) Medications Medication Sig Dispensed Refills Start Date [...] as of this encounter (statuses as of 03/14/2023) Active Problems Problem Noted Date Diagnosed Date COPD, group A, by GOLD 2017 classification 03/11 Overview: Per COPD GOLD Classification Pulmonary emphysema 2022 Atherosclerosis of coronary artery of [place] heart without angina pectoris 2022 PAT (paroxysmal [...] as of this encounter (statuses as of 03/14/2023) Resolved Problems Problem Noted Date Diagnosed Date Resolved Date Prediabetes 12/14/2019 08/16/2022 Overview: Per Prediabetes protocol PAT (paroxysmal atrial tachycardia) 07/13/2015 12/13/2021 Overview: More specified condition of afib on pl Positional lightheadedness 07/13/2015 0 11/07/2017 Atrial fibrillation 03/10/2009 10/30/19 17 Shortness of breath 11/23/2008 10/30/19 17 Malaise and fatigue 11/23/2008 10/30/19 17 documented as of this encounter (statuses as of 03/14/2023) Immunizations Name Administration Dates Next Due COVID-19 [...] Sign Reading Time Taken Comments Blood Pressure 122/72 03/14/2023 8:05 AM EST Pulse 69 03/14/2023 8:05 AM EST Temperature 36.2 C (97.2 F) 03/14/2023 8:05 AM ES T Respiratory Rate - - Oxygen Saturation 99% 03/14/2023 8:05 AM EST Inhaled Oxygen Concentration - - Weight 70.6 kg (155 lb 9.6 oz) 03/14/2023 8:05 A M EST Height 182.9 cm (6') 03/14/2023 8:05 AM EST Body Mass Index 21.1 03/14/2023 8:05 AM EST documented in this encounter Functional [...] as of this encounter Progress Notes * Gail Easley MD - 03/14/2023 8:25 AM EST HPI: Arturo Diego is a 72 year old male With history of medical problems as listed below including but not limited to tobacco use disorder, history of diverticulitis, paroxysmal atrial fibrillation, Neil vascular score of 1, AAA, hypertension, emphysema / COPD, follows with Cardiology, hyperlipidemia, hypertension, had colectoly with removal of sigmoid colon and upper rectum, who presents with: Chief Complaint Patient presents with Follow Up The pt stated he is here for a follow up appointment with Dr Easley. The pt denies any new issues atthis time. Patient is here for the recheck. Chart reviewed with the patient including current meds, last labs and HM. No acute event since we saw patient last time including no recent fall or injuries. Overall he is doing okay except energy is not as good as before. Denies any chestpain/sob/palpitation/swealling in the legs. Tries to be very active. Holiday plans changed as had a fall and wrist fracture. No urinary s/s. States feels sadness with weather, overall situation and aging. Reassured. No suicidal or homicidal ideation. Follows with [facility] at [place]. Hx of diverticulosis and s/p colectomy. Patient Active Problem List Diagnosis Code SINOATRIAL NODE DYSFUNCTION-s/p pacer 10/10 I49.5 Dyslipidemia, goal LDL below 100 E78.5 Cardiac pacemaker in situ Z95.0 Tobacco use disorder F17.200 Aortic ectasia ([facility]) I77.819 Diverticulitis of sigmoid colon K57.32 Diverticulitis of large intestine with abscess K57.20 Paroxysmal atrial fibrillation ([facility]) I48.0 AAA (abdominal aortic aneurysm) ([facility]) I71.40 HTN, goal below 140/90 I10 PAT (paroxysmal atrial tachycardia) I47.19 Pulmonary emphysema ([facility]) J43.9 Atherosclerosis of coronary artery of [place] heart without angina pectoris I25.10 COPD, group A, by GOLD 2017 classification ([facility]) J44.9 Current Outpatient Medications Medication Sig Dispense Refill [...] No current facility-administered medications for this visit. The patient's medication list was reviewed and updated as needed. Review of patient's allergies indicates: Allergen Reactions Sulfa Antibiotics erythema multiforme Past Medical History: Diagnosis Date Atrial fibrillation (HCC) 03/10/2009 Cardiac pacemaker in situ 10/10 HTN, goal to be determined Positional lightheadedness 07/13/2015 shoulder 1980 Left Social History Socioeconomic History Marital status: Number of children: 2 Occupational History Occupation: [employer] Employer: [employer] EMPLOYED Tobacco Use Smoking status: Every Day Packs/day: 0.50 Years: 47.00 Additional pack years: 0.00 Total pack years: 23.50 Types: Cigarettes, Cigars Smokeless tobacco: Never Vaping Use Vaping Use: Never used Substance and Sexual Activity Alcohol use: Yes Comment: 3 beers per week Drug use: No Sexual activity: Yes Social History Narrative Lives with , son and his 2 grandsons and mother in law. for 40 years. Social Determinants of Health Food Insecurity: No Food Insecurity (07/12/2022) Hunger Vital Sign Worried About Running Out of Food in the Last Year: Never true Ran Out of Food in the Last Year: Never true Family History Problem Relation Age of Onset Cancer Father age 49 - lung cancer Lung Disorder Mother age 60 pneumonia All system negative except as per hpi. OBJECTIVE: BP 122/72 | Pulse 69 | Temp 36.2 C (97.2 F) | Ht 1.829 m (6') | Wt 70.6 kg (155 lb 9.6 oz) | SpO2 99% | BMI 21.10 kg/m | BSA 1.89 m PHYSICAL EXAM: HEENT: PERRLA, EOMI, anicteric sclera, b/l tympanic membrane is pearly white, no erythema, no pharyngeal erythema, no lymphadenopathy, neck supple CVS: RRR, no murmurs, rubs or gallops, s1 s 2normal. RESP: clear to auscultation, no wheezing or crackles ABD: soft, NT/ND EXT: no edema, cyanosis, peripheral pulses palpable bilaterally No large joint swelling, no redness, range of motion normal. Skin normal. Gait normal. Mood stable No focal weakness ASSESSMENT AND PLAN: HTN, goal below 140/90 (Primary) - COMPREHENSIVE METABOLIC PANEL; Future; Expected date: 01/13/2024 Pulmonary emphysema, unspecified emphysema type (HCC) PAT (paroxysmal atrial tachycardia) Cardiac pacemaker in situ COPD, group A, by GOLD 2017 classification (HCC) Dyslipidemia, goal LDL below 100 - LIPID PANEL WITH DIRECT LDL IF TG IS HIGH; Future; Expected date: 01/13/2024 Abdominal aortic aneurysm (AAA) without rupture, unspecified part (HCC) Atherosclerosis of coronary artery of [place] heart without angina pectoris, unspecified vessel or lesion type Paroxysmal atrial fibrillation (HCC) Sinoatrial node dysfunction (HCC) Tobacco use Gail Easley MD documented in this encounter Nursing Notes * Yo Ramirez LPN - 03/14/2023 8:05 AM EST Chief Complaint Patient presents with Follow Up The pt stated he is here for a follow up appointment with Dr Easley. The pt denies any new issues atthis time. documented in this encounter Plan of Treatment Upcoming Encounters Date Type Department Care Team (Late st Contact Info) Description 03/22/2023 10:45 AM EST [facility] [address] [place] [address] Larry Stringer MD [address] [place] [address] 07/16/2023 8:20 AM EDT Office Visit General Internal Medicine [facility] [place] [address] [place] [address] Gail Easley MD [address] [facility] [place] [address] 07/24/2023 8:00 AM EDT Nurse Only Ancillary [facility] [place] [address] [facility] [place] [address] Im, Nurse Annual Wellness [facility] [address] [facility] [place] [address] Scheduled Orders Name Type Priority Associated Diagnoses Orde r Schedule COMPREHENSIVE METABOLIC PANEL Lab Routine HTN, goal below 140/90 Expected: 01/13/2024, Expires: 03/13/2024 LIPID PANEL WITH DIRECT LDL IF TG IS HIGH Lab Routine Dyslipidemia, goal LDL below 100 Expected: 01/13/2024, Expires: 03/14/2024 Health Maintenance Due Date Last Done Comments DISCUSS TOBACCO CESSATION (REFER TO SMARTSET #5917) 1950 Alpha-1 Antitrypsin 12/03/1969 Cologuard 12/03/1996 Fecal [...] 11/07/2017 LUNG CANCER SCREENING - USE SMARTSET 49594 Completed 01/18/2022 Influenza Vaccine (FLU shot) Completed [...] as of this encounter Visit Diagnoses Diagnosis HTN, goal below 140/90- Primary Unspecified essential hypertension Pulmonary emphysema, unspecified emphysema type (HCC) PAT (paroxysmal atrial tachycardia) Paroxysmal supraventricular tachycardia Cardiac pacemaker in situ COPD, group A, by GOLD 2017 classification (HCC) Dyslipidemia, goal LDL below 100 Other and unspecified hyperlipidemia Abdominal aortic aneurysm (AAA) without rupture, unspecified part (HCC) Atherosclerosis of coronary artery of [place] heart without angina pectoris, unspecified vessel or lesion type Paroxysmal atrial fibrillation (HCC) Atrial fibrillation Sinoatrial node dysfunction (HCC) Sinoatrial node dysfunction Tobacco use Tobacco use disorder documented in this encounter Advance Directives Latest Code Status on File Code Status Date Activated Date Inactivated Comments Full Code 04/14/2018 9:56 AM 04/17/2018 2:37 PM Question Answer Comments Discussion of Advance Direct molly occurred with: Not Discussed Does the patient have a Living Will? No Does the patient have Health Care Power of Cad Manager? No Code Status History Code Status Date Activated Date Inactivated Comments Full Code 04/14/2018 6:10 AM 04/14/2018 9:56 AM Question Answer Comments Discussion of Advance Directives occurred with: Not Discussed Does the patient have a Living Will? No Does the patient have Health Care Power of Cad Manager? No Full Code 12/22/2017 6:13 PM 12/24/2017 2:29 PM Thi s order reflects the patients wishes and were consensually agreed upon. Question Answer Comments Discussion of Advance Directives occurred with: Not Discussed Does the patient have a Living Will? Yes, not currently available Does the patient have Health Care Power of Cad Manager? Yes, not currently available Care Teams Padding Gluer Relationship Specialty Start Date End Date Gail Easley MD [address] [place] [address] PCP - General Internal Medicine 05/15/19 documented as of this encounter"
--- OUTSIDE RECORDS SUMMARY | 2023-06-12 09:35 | External Medical Summary | Summary of Care ---
Author Name Unknown Organization [facility] Address [address] [place] [address] Phone [phone] Care Team Providers Care Mechanical Technologist Name Role Phone Gail Easley MD Primary Care Provider + Reason for Visit * Reason Onset Date Comments Procedure 01/01/2023 Encounter Details Date Type Department Care Team ([facility] Contact Info) Description 01/01/2023 Telephone General Surgery, [place] [address] [place] [address] Larry Stringer MD [address] [place] [address] Procedure Allergies Active Allergy Reactions Criticality Noted Date Comments Sulfa Antibiotics 02/21/1998 erythema multiforme documented as of this encounter (statuses as of 01/01/2023) Medications Medication Sig Dispensed Refills Start Date [...] as of this encounter (statuses as of 01/01/2023) Active Problems Problem Noted Date Diagnosed Date Pulmonary emphysema 2022 Atherosclerosis of coronary artery of [place] heart without angina pectoris 2022 PAT (paroxysmal [...] as of this encounter (statuses as of 01/01/2023) Resolved Problems Problem Noted Date Diagnosed Date Resolved Date Prediabetes 12/14/2019 08/16/2022 Overview: Per Prediabetes protocol PAT (paroxysmal atrial tachycardia) 07/13/2015 12/13/2021 Overview: More specified condition of afib on pl Positional lightheadedness 07/13/2015 0 11/07/2017 Atrial fibrillation 03/10/2009 10/30/19 17 Shortness of breath 11/23/2008 10/30/19 17 Malaise and fatigue 11/23/2008 10/30/19 17 documented as of this encounter (statuses as of 01/01/2023) Immunizations Name Administration Dates Next Due COVID-19 [...] pur e alcohol) 3 beers per week PHQ-2 Answer Date Recorded PHQ Adult Total [...] or making decisions? (5 years old or older No 04/14/2018 documented as of this encounter Miscellaneous Notes * Telephone Encounter - Concepción Mohan OSA - 01/01/2023 10:07 AM EDT Left message- called patient to see if he is ready to schedule his [address] Stringer. documented in this encounter Plan of Treatment Upcoming Encounters Date Type Department Care Team (Late st Contact Info) Description 01/22/2023 10:00 AM EST Imaging Radiology [facility] [address] [facility] [place] [address] 02/14/2023 8:30 AM EST Cardiac Studies [address], [address] [address] [place], [facility] [address] 03/14/2023 8:00 AM EST Office Visit General Internal Medicine [facility] [address] [place] [address] Gail Easley MD [address] [place] [address] [address] 04/08/2023 1:30 PM EST Office Visit Dermatology [facility] [place] [address] [place] [address] Radha Steele MD [address] [place] [address] [address] 07/16/2023 8:20 AM EDT Office Visit General Internal Medicine [facility] [place] [address] [place] [address] Gail Easley MD [address] [facility] [place] [address] 07/24/2023 8:00 AM EDT Nurse Only Ancillary [facility] [place] [address] [place] [address] Im, Nurse Annual Wellness [facility] [address] [facility] [place] [address] Health Maintenance Due Date Last Done Comments DISCUSS TOBACCO CESSATION (REFER TO SMARTSET #2051) 1950 Alpha-1 Antitrypsin 12/03/1969 Cologuard 12/03/1996 Fecal [...] 11/07/2017 LUNG CANCER SCREENING - USE SMARTSET 41162 Completed 01/18/2022 Influenza Vaccine (FLU shot) Completed [...] the patient have Health Care Power of Clinic Director? No Code Status History Code Status Date Activated Date Inactivated Comments Full Code 04/14/2018 6:10 AM 04/14/2018 9:56 AM Question Answer Comments Discussion of Advance Directives occurred with: Not Discussed Does the patient have a Living Will? No Does the patient have Health Care Power of Clinic Director? No Full Code 12/22/2017 6:13 PM 12/24/2017 2:29 PM Thi s order reflects the patients wishes and were consensually agreed upon. Question Answer Comments Discussion of Advance Directives occurred with: Not Discussed Does the patient have a Living Will? Yes, not currently available Does the patient have Health Care Power of Clinic Director? Yes, not currently available Care Teams Mechanical Technologist Relationship Specialty Start Date End Date Gail Easley MD [address] [place] [address] PCP - General Internal Medicine 05/15/19 documented as of this encounter
--- OUTSIDE RECORDS SUMMARY | 2023-06-12 09:35 | External Medical Summary | Summary of Care ---
Author Name Unknown Organization [facility] Address [address] [place] [address] Phone [phone] Care Team Providers Care Plum Packer Name Role Phone Gail Easley MD Primary Care Provider + Reason for Visit * Reason Comments eRx-Medication Refill Encounter Details Date Type Department Care Team Description 12/13/2022 Refill Cardiology, [facility] [address] [facility] [place] [address] Oneil Ashton MD [address] [place] [address] PAT (paroxysmal atrial tachycardia); Paroxysmal atrial fibrillation (HCC) Allergies Active Allergy Reactions Severity Noted Date Comments Sulfa Antibiotics 02/21/1998 erythema multiforme documented as of this encounter (statuses as of 12/17/2022) Medications Medication Sig Dispensed Refills Start Date [...] ONCE DAILY 90 Tablet 3 12/17/2022 Active Metoprolol Succinate ER 100 MG Oral Tablet Extended Release 24 Hour (toPROL XL)Indications:PAT (paroxysmal atrial tachycardia),Parox ysmal atrial fibrillation (HCC) TAKE 1 TABLET BY MOUTH ONCE DAILY 90 Tablet 0 09/07/2022 12/17/2022 Discontinued documented as of this encounter (statuses as of 12/17/2022) Active Problems Problem Noted Date Pulmonary emphysema 2022 Atherosclerosis of coronary artery of na tive heart without angina pectoris 2022 PAT (paroxysmal atrial tachycardia) 10/2021 HTN, goal below 140/90 01/11/2021 Paroxysmal atrial fibrillation AAA (abdominal aortic aneurysm) 05/15/19 20 Diverticulitis of large intestine with a bscess 12/23/2017 Diverticulitis of sigmoid colon 12/23/19 18 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/2017 Overview: Repeat US in 2-3 years (2020) Tobacco use disorder 05/02/2017 Cardiac pacemaker in situ 11/26/2012 Dyslipidemia, goal LDL below 100 011 SINOATRIAL NODE DYSFUNCTION-s/p pacer 10/21/2008 documented as of this encounter (statuses as of 12/17/2022) Resolved Problems Problem Noted Date Resolved Date Prediabetes 12/14/2019 08/16/2022 Overview: Per Prediabetes protocol PAT (paroxysmal atrial tachycardia) 07/13/2015 12/13/2021 Overview: More specified condition of afib on pl Positional lightheadedness 07/13/201511/07 Atrial fibrillation 03/10/2009 10/29/2016 Shortness of breath 11/23/2008 10/29/2016 Malaise and fatigue 11/23/2008 10/29/2016 documented as of this encounter (statuses as of 12/17/2022) Immunizations Name Administration Dates Next Due COVID-19 [...] pur e alcohol) 3 beers per week Alcohol Habits Answer Date Recorded How often do you have a drink containing alcohol ? 2-3 times a week 10/05/2020 How many drinks containing a lcohol do you have on a typical day when you are drinking? 1 or 2 10/05/2020 How often do you have six or more drinks on one occasion? Not asked 10/05/2020 Food Insecurity Answer Date Recorded Within the past 12 months, y ou worried that your food would run out before you got money to buy more. Never true 07/12/2022 Within the past 12 months, t he food you bought just didn't last and you didn't have money to get more. Never true 07/12/2022 Sex Assigned at Date Recorded Male 11/06/2018 1:40 PM E DT Job Start Date Occupation Industry Not on [...] Telephone Encounter - Ramon Eli DO - 12/17/2022 8:22 AM EDTSigned Prescriptions: Disp Refills Metoprolol Succinate ER 100 MG Oral Tablet*90 Tab*3 Sig: TAKE 1 TABLET BY MOUTH ONCE DAILY Authorizing Provider: ARMON ELI * Telephone Encounter - Interface, [facility] S[facility] Inbound - 12/15/2022 4:32 PM EDT Pending Prescriptions: Disp Refills Metoprolol Succinate ER 100 MG Oral Tablet*90 Tab*3 Sig: TAKE 1 TABLET BY MOUTH ONCE DAILY * Telephone Encounter - HOWIE Leyva - 12/14/2022 8:04 AM EDTPending Prescriptions: Disp Refills Metoprolol Succinate ER 100 MG Oral Tablet*90 Tab*3 Sig: TAKE 1 TABLET BY MOUTH ONCE DAILY * Telephone Encounter - HOWIE Leyva - 12/14/2022 8:04 AM EDT Did you pend patient's preferred pharmacy and medication before forwarding?yes Pharmacy: [id number] Pending Prescriptions: Disp Refills Metoprolol Succinate ER 100 MG Oral Table*90 Tab*3 Sig: TAKE 1 TABLET BY MOUTH ONCE DAILY Last Visit: 08/01/2022 (in office), Visit date not found (telemedicine) Next Visit: 02/14/2023 If no future appointments scheduled, and last appointment is greater than a year ago, please schedule patient for a follow-up appointment Last date the medication was ordered: 09-07-2022 Is this request for a controlled substance?No Urine Drug Screen:No results found for this or any previous visit. Patient Phone Numbers [employer] [phone] Labs: Lab Results Component Value Date/Time CREAT [...] Plan of Treatment Upcoming Encounters Date Type Specialty Care Team Description 01/22/2023 Imaging Radiology 02/14/2023 [facility] [address] [place] [address] 03/14/2023 Office Visit Internal Medicine Gail Easley MD [address] [facility] [address] 04/08/2023 Office Visit Dermatology Radha Steele MD [address] [facility] [place] [address] 07/16/2023 Office Visit Internal Medicine Gail Easley MD [address] [facility] [place] [address] 07/24/2023 Nurse Only Ancillary Im, Nurse Annual Wellness [facility] [address] [facility] [place] [address] Health Maintenance Due Date Last Done Comments DISCUSS TOBACCO CESSATION (REFER TO SMARTSET #5586) 1950 Alpha-1 Antitrypsin 12/03/1969 Cologuard 12/03/1996 Fecal [...] 11/07/2017 LUNG CANCER SCREENING - USE SMARTSET 30176 Completed 01/18/2022 Influenza Vaccine (FLU shot) Completed [...] as of this encounter Visit Diagnoses Diagnosis PAT (paroxysmal atrial tachycardia) Paroxysmal supraventricular tachycardia Paroxysmal atrial fibrillation (HCC) Atrial fibrillation documented in this encounter Advance Directives Latest Code Status on File Code Status Date Activated Date Inactivated Comments Full Code 04/14/2018 9:56 AM 04/17/2018 2:37 PM Question Answer Comments Discussion of Advance Direct molly occurred with: Not Discussed Does the patient have a Living Will? No Does the patient have Health Care Power of Tight Cooper? No Code Status History Code Status Date Activated Date Inactivated Comments Full Code 04/14/2018 6:10 AM 04/14/2018 9:56 AM Question Answer Comments Discussion of Advance Directives occurred with: Not Discussed Does the patient have a Living Will? No Does the patient have Health Care Power of Tight Cooper? No Full Code 12/22/2017 6:13 PM 12/24/2017 2:29 PM Thi s order reflects the patients wishes and were consensually agreed upon. Question Answer Comments Discussion of Advance Directives occurred with: Not Discussed Does the patient have a Living Will? Yes, not currently available Does the patient have Health Care Power of Tight Cooper? Yes, not currently available Care Teams Plum Packer Relationship Specialty Start Date End Date Gail Easley MD [address] [place] [address] PCP - General Internal Medicine 05/15/19 documented as of this encounter
--- NOTE | 2023-06-12 13:49 | Communication Note ---
Date of Service: June 12, 2023 Patient evaluated at bedside. No dysarthria/aphasia noted. reports history of this aphasia previously. Neuro CN II-XII intact Agreeable to stay for 23 hour tele monitoring and repeat CT head CT revealed Focal encephalomalacia is seen in the left internal capsule compatible with old infarct. Discussed need for Cards follow up for likely zio patch given hx of a fib not on AC Pacemaker interrogation Given presence of prior stroke and recurrence of similar symptoms, will consult neuro for further optimization/follow up as OP continue ASA/statin
--- NOTE | 2023-06-12 15:56 | Neurology Consultation ---
Date of Consultation June 12, 2023 Assessment & Plan (1) TIA (transient ischemic attack): Episode of transient aphasia, could have been secondary to deydration/alcohol. However, with his history of afib and now incidental chronic stroke on head CT, I recommend anticogulation. Would start Eliquis 5mg BID and stop aspirin. Echo is otherwise pending. He can't have an MRI due to his pacemaker, repeating the CT head would not be useful in this situation as he is back to baseline. -- Start eliquis 5mg BID -- Stop Aspirin -- Continue statin -- Awaiting echo -- PCP follow-up -- neuro follow-up in 4-6 weeks Telehealth Consultation Telehealth Information Telehealth Information: I performed this visit using a real-time telehealth connection between my location and the patients location ([facility]). After connecting through interactive tele-video, patient was identified by name and date of and/or wristband check.Patient (or authorized healthcare metals sales representative) was informed that this was a telemedicine visit and it was being conducted confidentially over secure lines. My office door was closed and no one else was present in the room with me.Patient (or authorized healthcare metals sales representative) provided consent to proceed with the visit, expressed an understanding of privacy and security of the telemedicine visit, and gave permission to have a hospital metals sales representative in the room in order to assist with the visit and to conduct portions of the visit, as needed. I informed the patient (or authorized healthcare metals sales representative) that I reviewed their record and presented the opportunity for them to ask any questions regarding the visit today. The patient agreed to participate. History of Present Illness Reason for Consultation: Transient aphasia Requesting Physician: Dr. Rodrigez Attending Physician: Mireille Rodrigez MD History of Present Illness Arturo Diego is a 72 yo M presenting with an episode of transient aphasia and confusion while playing golf. He does admit to caffeine intake and a single beer while playing. He was able to understand others but had difficulty answering questions, like he said it was 2022 though knew it was 2023. This has happened to him once before when in [facility] also under similar circumstances of dehydration and alcohol use. He has a known history of afib but does not remember chest pain or palpitations when symptoms occurred. By the time of arrival he was back to normal and has not had any recurrence of symptoms. Allergies Allergy/AdvReac Type Severity Reaction Status Date / Time Sulfa (Sulfonamide Allergy Intermediate HIVES Verified 06/11/23 21:56 Antibiotics) Home Medications Medication Instructions Recorded Confirmed Type atorvastatin 40 mg tablet 40 mg PO QPM 12/22/17 06/11/23 History cyanocobalamin (vitamin B-12) 1,000 mcg PO 2XWK 12/22/17 06/11/23 History 1,000 mcg capsule magnesium oxide 400 mg PO 2XWK 12/22/17 06/11/23 History metoprolol succinate 100 mg 100 mg PO QAM 12/22/17 06/11/23 History tablet,extended release 24 hr aspirin 81 mg tablet,delayed 81 mg PO DAILY 06/11/23 06/11/23 History release Patient History Medical History (Updated 06/12/23 @ 09:23 by Kevyn Perdomo MD) SSS (sick sinus syndrome) s/p PM placement in 2008 AAA (abdominal aortic aneurysm) stable - Abdominal aortic duplex report 01/2019: evidence of a 3.3 centimeter abdominal aortic aneurysm. Repeat 01/21 Paroxysmal atrial fibrillation Dyslipidemia HTN (hypertension) Tobacco use disorder Surgical History H/O hernia repair Pacemaker 2008 Family History Other Lung disease Social History Smoking Status: Current every day smoker Tobacco Type: Cigarettes Cigarettes Per Day: 10; Second Hand Exposure: No; Do You Dip or Chew Tobacco: No; Hx Alcohol Use: Yes Alcohol type: beer Alcohol Intake Frequency: 4 or More x per/Week Hx Substance Use: No Preferred Language: Upper Sorbian Communication Ability: Effective Explosives Detonator Required: No Beliefs That Will Affect Care: None Current Living Situation: Spouse Feels Safe at Home: Yes Assistive Devices: None Review of Systems +aphasia Physical Exam Neurological Examination: Mental Status: Awake and alert. Oriented to person, place, and time. Fluent. Comprehension intact. Affect appropriate. Cranial Nerves: II: Reads NIHSS cards, pupils 3/3 to 2/2, moreno grossly intact. III/IV/: Versions intact without nystagmus, no gaze preference. V: Facial sensation symmetric to light touch VII: Facial expression symmetric Motor: Strength was symmetric and antigravity throughout. Pronator drift was absent. There were no abnormal movements. Sensory: Sensation to light touch was intact. Coordination: Finger to nose and heel to cox were intact. Results & Data Vital Signs (Past 12 Hours) Vital Signs Temp Pulse Pulse Pulse Resp BP BP 06/12/23 15:38 36.5 C 59 L 16 119/66 06/12/23 14:52 66 06/12/23 13:15 62 06/12/23 12:47 36.5 C 66 19 149/80 H 06/12/23 07:35 62 14 126/77 06/12/23 07:35 06/12/23 07:29 61 06/12/23 06:00 60 15 130/70 06/12/23 05:00 66 17 126/83 06/12/23 04:00 60 18 127/84 Pulse Ox Pulse Ox O2 Del Method O2 Del Method 06/12/23 15:38 98 Room Air 06/12/23 14:52 06/12/23 13:15 06/12/23 12:47 98 Room Air 06/12/23 07:35 99 Room Air 06/12/23 07:35 99 Room Air 06/12/23 07:29 06/12/23 06:00 06/12/23 05:00 97 06/12/23 04:00 98 Laboratory Results Abnormal lab results 06/11/23 06/11/23 06/12/23 Range/Units 18:24 18:31 04:03 RBC 4.65 L 4.16 L (4.70-6.10) M/uL Hgb 13.4 L (14.0-18.0) g/dl Hct 38.9 L (42.0-52.0) % Neut # (Auto) 7.16 H (1.40-6.50) K/uL [place] # (Auto) 0.87 H 0.71 H (0.11-0.59) K/uL POC Anion Gap 14.0 L (16-25) mmol/L Glucose 69 L (70-99(Fasting)) mg/dl Diagnostic Findings CT head - chronic appearing L caudate infarct
--- NOTE | 2023-06-12 19:26 | XCELERA ---
[id number]
[2023-06-12] MEDS: ATORVASTATIN 40 MG TAB PO SCH (20:11)
[2023-06-12] MEDS: APIXABAN 5 MG TABLET PO SCH (20:11)
[2023-06-13 06:08] LABS: Basophils # (auto) 0.04 K/uL (0.00-0.20); Basophils % (auto) 0.6 %; Eosinophils # (auto) 0.26 K/uL (0.00-0.50); Eosinophils % (auto) 3.9 %; Hematocrit (blood only) 39.2 % (42.0-52.0); Hemoglobin 13.7 g/dl (14.0-18.0); Immature Granulocytes # (auto) 0.01 K/uL (0.01-0.20); Immature Granulocytes % (auto) 0.1 %; Lymphocytes # (auto) 2.49 K/uL (1.20-3.40); Lymphocytes % (auto) 37.2 %; Mean Corpuscular Hemoglobin 32.9 pg (25.0-34.0); Mean Corpuscular Hgb Conc 34.9 g/dL (32.0-36.0); Mean Platelet Volume 11.5 fL (9.4-12.4); Monocytes # (auto) 0.73 K/uL (0.11-0.59); Monocytes % (auto) 10.9 %; Neutrophils # (auto) 3.17 K/uL (1.40-6.50); Neutrophils % (auto) 47.3 %; Platelet Count 170 K/uL (130-400); RDW Coefficient of Variation 12.6 % (11.5-14.5); RDW Standard Deviation 43.5 fL (36.4-46.3); Red Blood Count 4.17 M/uL (4.70-6.10)
[2023-06-13 06:22] LABS: BUN Creatinine Ratio 13.1 (10-20); Calcium 8.9 mg/dl (8.6-10.3); Creatinine Clr Calc Pharmacy 74.8 ml/min; Est GFR (African American) 88.4 ml/min; Est GFR (Non-African American) 76.3 ml/min
[2023-06-13] MEDS ORDERED: STROKE PATIENT DISCHARGE STA (08:05)
--- NOTE | 2023-06-13 08:12 | Pharmacy Report ---
- Date of Service June 13, 2023 - Pharmacy CVA/TIA Medication Review Medications to Prevent Stroke handout has been added to the patients discharge packet. Antiplatelet(s) * aspirin Cholesterol * High intensity statin: atorvastatin 40 mg daily DVT Prophylaxis * therapeutic anticoagulation Therapeutic Anticoagulation * Hx Afib/Aflutter noted, and patient is currently receiving apixaban Type 2 Diabetes * Patient does not have T2DM
[2023-06-13] MEDS ORDERED: ASPIRIN 81 MG ECTAB PO SCH (09:00)
--- NOTE | 2023-06-13 09:40 | Discharge Summary ---
Discharge Summary Date of Service June 13, 2023 Notes For Next Care Provider Medication Changes From Visit Start Apixaban 5mgBID D/c ASA 81mg daily Admission HPI Per Admitting Provider History obtained from patient and records. Medical history significant for SSS status post PPM, nonocclusive CAD, PVD, hypertension, hyperlipidemia, COPD, prediabetes, complicated diverticulitis status post surgery, ongoing tobacco abuse. Last confinement September 2019 for near syncope status post PPM. Patient [place] the [place] with his buddies yesterday afternoon when he had trouble getting words out. No headache, no chest pain, no SOB. Thinks it may have happened before related to his dehydration. Patient admits to not taking home aspirin regularly for unclear reasons. Last dose was about 2 days ago. Patient symptoms improving upon arrival at the ER. Medical History as above Surgical History : PPM, bowel surgery, tonsillectomy, hernia repair Family History : Lung cancer Personal/Social history : Few cigarettes a day, occasional EtOH intake, retired from [employer] business Admission Exam Per Admitting Provider GENERAL: Comfortable, pleasant, no respiratory distress SKIN: Normal color, warm HEENT: Ringsted palpebral conjunctivae, no ptosis, dry buccal mucosa NECK : Supple, no tenderness CHEST : CTA, no tenderness HEART : RRR, no obvious murmurs ABDOMEN: no distention, nontender EXTREMITIES : No LE swelling/tenderness, no other conspicuous deformities noted NEUROLOGIC : Coherent, no facial asymmetry, MMTs 4/5, no pronator drift, gait and stance not assessed Principal Dx & Hospital Course #1 = Principal Diagnosis (1) TIA (transient ischemic attack): Mr. Arturo Diego is a 72 year old male who was admitted with an episode of transient aphasia and confusion while playing golf. CT scan revealed area of old, chronic stroke. Neurology evaluated for TIA (transient ischemic attack) who felt episode of transient aphasia, could have been secondary to deydration/alcohol; however, given his history of afib and now incidental chronic stroke on head CT, patient was started on Eliquis 5mg BID and stopped aspirin. ECHO with G1DD. He can't have an MRI due to his pacemaker, repeating the CT head would not be useful in this situation as he is back to baseline. Symptoms resolved and neuro CN II-XII intact No events on telemetry. #Asphasia, c/f TIA #Chronic stroke on imaging -Given history of a fib, recommended eliquis and follow up as OP with neuro in 4-6 weeks. Discontinue ASA Continue Statin #SSS s/p pacemaker Cardiology OP follow up Continue metoprolol #HLD continue statin On day of discharge, patient without neurologic deficits and at baseline. Discharge Exam Constitutional WD/WN, vitals as above Respiratory normal respiratory effort, lungs clear to auscultation Gastrointestinal (Abdomen) normal bowel sounds, soft, nontender, no hepatosplenomegaly Updated Medication List Medication Instructions Recorded Confirmed Type atorvastatin 40 mg tablet 40 mg PO QPM 12/22/17 06/11/23 History cyanocobalamin (vitamin B-12) 1,000 mcg PO 2XWK 12/22/17 06/11/23 History 1,000 mcg capsule magnesium oxide 400 mg PO 2XWK 12/22/17 06/11/23 History metoprolol succinate 100 mg 100 mg PO QAM 12/22/17 06/11/23 History tablet,extended release 24 hr apixaban 5 mg tablet 5 mg PO BID #60 tabs 06/12/23 Rx Hospital Stay Data Consultations 06/11/23 21:50 ED Decision to Admit Stat 06/12/23 14:20 Consult Neurology Routine Diagnostic Imagining Performed 06/11/23 18:12 CT angio head w con Stat CT angio neck with con Stat CT head/brain wo con Stat Pending Results Patient Have Any Pending Studies at Discharge: No Discharge Instructions Given to Patient (Per Discharging Provider) You were admitted due to an episode of transient aphasia, could have been secondary to deydration/alcohol. However, with your history of afib and now incidental chronic stroke on head CT, it is recommended you start anticogulation. Please start Eliquis 5mg two times daily and stop aspirin. Please follow up with Neurology follow-up in 4-6 weeks Total Time Total Time Spent Total Time Spent (In Minutes): 45
--- NOTE | 2023-06-14 05:56 | Electrocardiogram Report ---
Test Reason : Blood Pressure : / mmHG Vent. Rate : 072 BPM Atrial Rate : 072 BPM P-R Int : 184 ms QRS Dur : 096 ms QT Int : 356 ms P-R-T Axes : 067 069 059 degrees QTc Int : 389 ms Atrial-paced rhythm Abnormal ECG When compared with ECG of 27-SEP-2019 10:39, Electronic atrial pacemaker has replaced Sinus rhythm Confirmed by Roberto Allen ([id number]) on 06/14/2023 5:56:01 AM Referred By: REFERRED SELF Confirmed By:Roberto Allen
== END 2023-06-13 10:48 | disposition home or self-care (01) ==
LOC: EDINP 18:03 → ED 18:03 → 2N 06-12 01:57
DX: I25.10 Atherosclerotic heart disease of native coronary artery without angina pectoris; E78.5 Hyperlipidemia, unspecified; Z95.0 Presence of cardiac pacemaker; G45.9 Transient cerebral ischemic attack, unspecified; I69.820 Aphasia following other cerebrovascular disease; E86.0 Dehydration; Z79.899 Other long term (current) drug therapy; F17.210 Nicotine dependence, cigarettes, uncomplicated; I10 Essential (primary) hypertension; R73.03 Prediabetes; Z79.82 Long term (current) use of aspirin; I73.9 Peripheral vascular disease, unspecified; J44.9 Chronic obstructive pulmonary disease, unspecified; Z88.2 Allergy status to sulfonamides